=== PATIENT | male | born 1990 | race Caucasian/White ===

== ENCOUNTER 2021-03-21 15:18 | Inpatient (IN) | payer MEDICAID ==
[2021-03-21] MEDS ORDERED: Sodium Chloride 0.9% 10 ML Syringe FLUSH PRN (15:39)
--- NOTE | 2021-03-21 16:08 | CR ---
Chest: Frontal view of the chest was obtained. Comparison: No prior chest imaging is available. Patchy areas of increased density are seen throughout both sides of the chest compatible with diffuse COVID pneumonia. Heart size and mediastinum are normal. No acute osseous abnormality is appreciated. Impression: 1. Patchy areas of increased density throughout both sides of the chest compatible with diffuse COVID pneumonia. Diagnostic code #3
--- NOTE | 2021-03-21 16:16 | EDM.PDOC ---
ED HPI GENERAL MEDICAL PROBLEM - General Chief Complaint: Respiratory Problem Stated Complaint: COVID + Time Seen by Provider: 03/21/21 15:32 Source of Information: Reports: Patient, RN Notes Reviewed History Limitations: Reports: No Limitations - History of Present Illness INITIAL COMMENTS - FREE TEXT/NARRATIVE: Patient is a 31-year-old male who presents to the ER for evaluation of his COVID-19 symptoms. Patient was evaluated at the clinic earlier today, and was found to have low O2 saturations in the mid 80s. He was brought to the ER for evaluation and his O2 sats were 85% on room air. He was placed on 2 L nasal cannula and he then improved to 95%. Patient states he has been positive for COVID-19 since March 16. Patient states that he has been having ongoing issues with continuing shortness of breath with any sort of activity. Patient is obese, but denies any sort of blood pressure, diabetic, or any underlying respiratory issues. Patient takes no regular medication is and has no regular care provider. States he is not vaccinated for COVID-19. Throat Pain Score (Numeric/FACES): 4 - Related Data Allergies Allergy/AdvReac Type Severity Reaction Status Date / Time Penicillins Allergy Other Verified 03/21/21 15:37 Home Meds: Home Meds . [No Known Home Meds] 03/21/21 [History] Past Medical History - Past Health History Medical/Surgical History: Denies Medical/Surgical History - Infectious Disease History Infectious Disease History: Reports: Novel Coronavirus (03/16/21) Social & Family History - Family History Family Medical History: No Pertinent Family History - Tobacco Use Tobacco Use Status *Q: Current Every Day Tobacco User Years of Tobacco use: 15 Packs/Tins Daily: 0.5 - Caffeine Use Caffeine Use: Reports: Tea - Recreational Drug Use Recreational Drug Use: No ED ROS GENERAL - Review of Systems Review Of Systems: Comprehensive ROS is negative, except as noted in HPI. ED EXAM, GENERAL - Physical Exam Exam: See Below Exam Limited By: No Limitations General Appearance: Alert, WD/WN, No Apparent Distress Respiratory/Chest: No Respiratory Distress, No Accessory Muscle Use, Chest Non- Tender, Decreased Breath Sounds (diminished bilaterally) Cardiovascular: Normal Peripheral Pulses, Regular Rate, Rhythm, No Edema Peripheral Pulses: 2+: Radial (L), Radial (R) Extremities: Normal Inspection, Normal Capillary Refill Neurological: Alert, Oriented, Normal Cognition, No Motor/Sensory Deficits Psychiatric: Normal Affect, Normal Mood Skin Exam: Warm, Dry, Intact, Normal Color, No Rash Course - Vital Signs Last Recorded V/S: Last Vital Signs Temp 99.1 F 03/21/21 18:34 Pulse 114 H 03/21/21 18:34 Resp 20 03/21/21 18:34 BP 142/69 H 03/21/21 18:34 Pulse Ox 89 L 03/21/21 21:44 - Orders/Labs/Meds Orders: Active Orders 24 hr Category Date Time Status Admission Status [Patient Status] [ADT] Routine ADT 03/21/21 17:49 Active Sodium Chloride 0.9% [Saline Flush] Med 03/21/21 15:39 Active 10 ml FLUSH ASDIRECTED PRN Peripheral IV Insertion Adult [OM.PC] Routine Oth 03/21/21 15:38 Ordered Medication Orders Acetaminophen (Acetaminophen 325 Mg/10.15 Ml Ml) 650 mg PO Q4H PRN PRN Reason: Pain (mild 1-3) Albuterol (Albuterol 6.7 Gm Inhaler) 0 gm INH Q4H PRN PRN Reason: Shortness of Breath Last Admin: 03/21/21 21:43 Dose: 2 puff Documented by: YESENIA Albuterol/Ipratropium (Albuterol/Ipratropium 3.0-0.5 Mg/3 Ml Neb Soln) 3 ml NEB Q4H PRN PRN Reason: Shortness Of Breath/wheezing Dexamethasone (Dexamethasone 4 Mg Tab) 6 mg PO DAILY [facility] Stop: 03/31/21 09:01 Enoxaparin Sodium (Enoxaparin 40 Mg/0.4 Ml Syringe) 40 mg SUBCUT BID [facility] Last Admin: 03/21/21 20:52 Dose: 40 mg Documented by: RY Remdesivir 100 mg/ Sodium (Chloride) 100 mls @ 100 mls/hr IV Q24H [facility] Stop: 03/25/21 20:59 Ondansetron HCl (Ondansetron 4 Mg/2 Ml Sdv) 4 mg IV Q6H PRN PRN Reason: Nausea/Vomiting Sodium Chloride (Sodium Chloride 0.9% 10 Ml Syringe) 10 ml FLUSH ASDIRECTED PRN PRN Reason: Keep Vein Open Labs: Laboratory Tests 03/21/21 03/21/21 03/21/21 Range/Units 16:55 16:55 16:55 WBC 6.44 (4.23-9.07) K/mm3 RBC 5.60 (4.63-6.08) M/mm3 Hgb 16.0 (13.7-17.5) gm/dl Hct 48.2 (40.1-51.0) % MCV 86.1 (79.0-92.2) fl MCH 28.6 (25.7-32.2) pg MCHC 33.2 (32.2-35.5) g/dl RDW Std Deviation 40.0 (35.1-43.9) fL Plt Count 146 L (163-337) K/mm3 MPV 11.3 (9.4-12.3) fl Neut % (Auto) 84.4 H (34.0-67.9) % Lymph % (Auto) 7.3 L (21.8-53.1) % [place] % (Auto) 7.9 (5.3-12.2) % Eos % (Auto) 0 L (0.8-7.0) Baso % (Auto) 0.2 (0.1-1.2) % Neut # (Auto) 5.44 H (1.78-5.38) K/mm3 Lymph # (Auto) 0.47 L (1.32-3.57) K/mm3 [place] # (Auto) 0.51 (0.30-0.82) K/mm3 Eos # (Auto) 0.00 L (0.04-0.54) K/mm3 Baso # (Auto) 0.01 (0.01-0.08) K/mm3 D-Dimer, Quantitative (0.19-0.50) mg/L Sodium 133 L (136-145) mEq/L Potassium 3.5 (3.5-5.1) mEq/L Chloride 99 (98-107) mEq/L Carbon Dioxide 23 (21-32) mEq/L Anion Gap 14.5 (5-15) BUN 5 L (7-18) mg/dL Creatinine 1.1 (0.7-1.3) mg/dL Est Cr Clr Drug Dosing 95.00 mL/min Estimated GFR (MDRD) > 60 (>60) mL/min BUN/Creatinine Ratio 4.5 L (14-18) Glucose 229 H (70-99) mg/dL Hemoglobin A1c ( - 5.6) % Lactic Acid 2.1 H* (0.4-2.0) mmol/L Calcium 8.1 L (8.5-10.1) mg/dL Magnesium (1.8-2.4) mg/dL Total Bilirubin 0.6 (0.2-1.0) mg/dL AST 88 H (15-37) U/L ALT 91 H (16-63) U/L Alkaline Phosphatase 52 (46-116) U/L C-Reactive Protein 13.0 H* (<1.0) mg/dL Total Protein 7.0 (6.4-8.2) g/dl Albumin 2.8 L (3.4-5.0) g/dl Globulin 4.2 gm/dL Albumin/Globulin Ratio 0.7 L (1-2) 03/21/21 03/21/21 03/21/21 Range/Units 16:55 16:55 16:55 WBC (4.23-9.07) K/mm3 RBC (4.63-6.08) M/mm3 Hgb (13.7-17.5) gm/dl Hct (40.1-51.0) % MCV (79.0-92.2) fl MCH (25.7-32.2) pg MCHC (32.2-35.5) g/dl RDW Std Deviation (35.1-43.9) fL Plt Count (163-337) K/mm3 MPV (9.4-12.3) fl Neut % (Auto) (34.0-67.9) % Lymph % (Auto) (21.8-53.1) % [place] % (Auto) (5.3-12.2) % Eos % (Auto) (0.8-7.0) Baso % (Auto) (0.1-1.2) % Neut # (Auto) (1.78-5.38) K/mm3 Lymph # (Auto) (1.32-3.57) K/mm3 [place] # (Auto) (0.30-0.82) K/mm3 Eos # (Auto) (0.04-0.54) K/mm3 Baso # (Auto) (0.01-0.08) K/mm3 D-Dimer, Quantitative 0.71 H (0.19-0.50) mg/L Sodium (136-145) mEq/L Potassium (3.5-5.1) mEq/L Chloride (98-107) mEq/L Carbon Dioxide (21-32) mEq/L Anion Gap (5-15) BUN (7-18) mg/dL Creatinine (0.7-1.3) mg/dL Est Cr Clr Drug Dosing mL/min Estimated GFR (MDRD) (>60) mL/min BUN/Creatinine Ratio (14-18) Glucose (70-99) mg/dL Hemoglobin A1c 7.2 H ( - 5.6) % Lactic Acid (0.4-2.0) mmol/L Calcium (8.5-10.1) mg/dL Magnesium 2.1 (1.8-2.4) mg/dL Total Bilirubin (0.2-1.0) mg/dL AST (15-37) U/L ALT (16-63) U/L Alkaline Phosphatase (46-116) U/L C-Reactive Protein (<1.0) mg/dL Total Protein (6.4-8.2) g/dl Albumin (3.4-5.0) g/dl Globulin gm/dL Albumin/Globulin Ratio (1-2) Meds: Medications Generic Name Dose Route Start Last Admin Trade Name Freq PRN Reason Stop Dose Admin Acetaminophen 650 mg 03/21/21 23:19 Acetaminophen 325 Mg/10.15 Ml Ml PO Q4H PRN Pain (mild 1-3) Albuterol 0 gm 03/21/21 19:18 03/21/21 21:43 Albuterol 6.7 Gm Inhaler INH 2 puff Q4H PRN Administration Shortness of Breath Albuterol/Ipratropium 3 ml 03/21/21 19:08 Albuterol/Ipratropium 3.0-0.5 Mg/3 Ml Neb Soln NEB Q4H PRN Shortness Of Breath/wheezing Dexamethasone 6 mg 03/22/21 09:00 Dexamethasone 4 Mg Tab PO 03/31/21 09:01 DAILY PREET Enoxaparin Sodium 40 mg 03/21/21 21:00 03/21/21 20:52 Enoxaparin 40 Mg/0.4 Ml Syringe SUBCUT 40 mg BID PREET Administration Remdesivir 100 mg/ Sodium 100 mls @ 100 mls/hr 03/22/21 20:00 Chloride IV 03/25/21 20:59 Q24H PREET Ondansetron HCl 4 mg 03/21/21 19:08 Ondansetron 4 Mg/2 Ml Sdv IV Q6H PRN Nausea/Vomiting Sodium Chloride 10 ml 03/21/21 15:39 Sodium Chloride 0.9% 10 Ml Syringe FLUSH ASDIRECTED PRN Keep Vein Open Discontinued Medications Generic Name Dose Route Start Last Admin Trade Name Freq PRN Reason Stop Dose Admin Acetaminophen 650 mg 03/21/21 19:08 Acetaminophen 325 Mg Tab PO Q4H PRN Pain (Mild 1-3)/fever Acetaminophen 650 mg 03/21/21 19:15 Acetaminophen 325 Mg Tab PO Q4H PRN Fever Greater Than 101 Dexamethasone 6 mg 03/21/21 16:43 03/21/21 18:08 Dexamethasone 10 Mg/Ml Sdv IVPUSH 03/21/21 16:44 6 mg ONETIME ONE Administration Remdesivir 200 mg/ Sodium 250 mls @ 250 mls/hr 03/21/21 16:43 03/21/21 18:08 Chloride IV 03/21/21 16:44 250 mls/hr ONETIME ONE Administration Ibuprofen 600 mg 03/21/21 19:08 Ibuprofen 600 Mg Tab PO Q6H PRN Pain (moderate 4-6) Temazepam 7.5 mg 03/21/21 19:15 Temazepam 7.5 Mg Cap PO BEDTIME PRN Sleep - Re-Assessments/Exams Free Text/Narrative Re-Assessment/Exam: 03/21/21 16:15 Patient presents to the ER for evaluation of his COVID-19 symptoms. Due to the patient's hypoxia, he will likely necessitate hospitalization. We will get some basic labs, and then discussed this case with our hospitalist Dr. Piedra for ongoing management. Departure - Departure Time of Disposition: 18:00 Disposition: Admitted As Inpatient 67 Condition: Good Clinical Impression: Hypoxia, COVID-19 - Discharge Information Sepsis Event Note (ED) - Evaluation Sepsis Screening Result: No Definite Risk - Focused Exam Vital Signs: Vital Signs Temp Pulse Resp BP Pulse Ox 03/21/21 15:31 98.5 F 104 H 20 161/86 H 92 L - My Orders Last 24 Hours: My Active Orders 03/21/21 15:38 Peripheral IV Insertion Adult [OM.PC] Routine 03/21/21 15:39 Sodium Chloride 0.9% [Saline Flush] 10 ml FLUSH ASDIRECTED PRN 03/21/21 17:49 Admission Status [Patient Status] [ADT] Routine - Assessment/Plan Last 24 Hours: My Active Orders 03/21/21 15:38 Peripheral IV Insertion Adult [OM.PC] Routine 03/21/21 15:39 Sodium Chloride 0.9% [Saline Flush] 10 ml FLUSH ASDIRECTED PRN 03/21/21 17:49 Admission Status [Patient Status] [ADT] Routine
[2021-03-21] MEDS ORDERED: REMDESIVIR 200 MG in Sodium Chloride 0.9% 250 ML IV ONE (16:43)
[2021-03-21] MEDS ORDERED: Dexamethasone 10 MG/ML SDV IVPUSH ONE (16:43)
[2021-03-21] MEDS ORDERED: Acetaminophen 325 MG Tab PO PRN ×2 (19:08→19:15)
[2021-03-21] MEDS ORDERED: Ondansetron 4 MG/2 ML SDV IV PRN (19:08)
[2021-03-21] MEDS ORDERED: Ibuprofen 600 MG Tab PO PRN (19:08)
[2021-03-21] MEDS ORDERED: Temazepam 7.5 MG Cap PO PRN (19:15)
--- NOTE | 2021-03-21 19:26 | PCM.HP.2 ---
H&P History of Present Illness - General Date of Service: 03/21/21 Admit Problem/Dx: Admission Diagnosis/Problem Admission Diagnosis/Problem Hypoxia - History of Present Illness Initial Comments - Free Text/Narative: 31-year-old unvaccinated for Covid obese male presents to the emergency department with symptoms of cough, shortness of breath, fatigue, body aches, and chills for the last week. Symptoms started on March 15 and he was diagnosed with Covid on the . Apparently he had an ear infection and complained of left ear pain at that time. He did get antibiotics that he has been taking but he does not remember the name nor did he bring them with him. He came to the emergency department today because he could not do anything for himself and was extremely fatigued. In the emergency department his O2 sats were 85% on room air. He was placed on 2 L and oxygen saturations increased to the mid 90s. He was given his first dose of remdesivir and dexamethasone. He has no medical history. Initial blood pressure was elevated 161/86. He also complained of some diarrhea since developing Covid. Throat Pain Score (Numeric/FACES): 4 - Related Data Allergies/Adverse Reactions: Allergies Allergy/AdvReac Type Severity Reaction Status Date / Time Penicillins Allergy Other Verified 03/21/21 15:37 Home Medications: Home Meds . 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 Endocrine/Metabolic History: Reports: Other (See Below) Other Endocrine/Metabolic History: Hypoglycemic - Infectious Disease History Infectious Disease History: Reports: Chicken Pox, Novel Coronavirus Social & Family History - Family History Family Medical History: No Pertinent Family History - Tobacco Use Tobacco Use Status *Q: Current Every Day Tobacco User Years of Tobacco use: 3 Packs/Tins Daily: 1 Used Tobacco, but Quit: No Second Hand Smoke Exposure: No - Caffeine Use Caffeine Use: Reports: Tea - Recreational Drug Use Recreational Drug Use: No H&P Review of Systems - Review of Systems: Review Of Systems: Comprehensive ROS is negative, except as noted in HPI. Exam - Exam Exam: See Below - Vital Signs Vital Signs: Last Vital Signs Temp 99.1 F 03/21/21 18:34 Pulse 114 H 03/21/21 18:34 Resp 20 03/21/21 18:34 BP 142/69 H 03/21/21 18:34 Pulse Ox 89 L 03/21/21 18:34 Weight: 267 lb 6.4 oz - Exam Quality Assessment: Supplemental Oxygen General: Alert, Oriented, 4 HEENT: Conjunctiva Clear, EACs Clear, EOMI, Hearing Intact, Mucosa Moist & [place]: Supple, Trachea Midline, 2 Lungs: Decreased Breath Sounds, Crackles (Throughout both lung damon), Rales. No: Normal Respiratory Effort Cardiovascular: Regular Rate, Regular Rhythm GI/Abdominal Exam: Normal Bowel Sounds, Soft, Non-Tender, No Distention Extremities: Normal Inspection, Normal Range of Motion, Non-Tender, No Pedal Edema, Normal Capillary Refill Skin: Warm, Dry, Intact Neuro Extensive - Mental Status: Alert, Oriented x3, Normal Mood/Affect, Normal Cognition, Memory Intact Psychiatric: Alert, Normal Affect, Normal Mood - Patient Data Lab Results Last 24 hrs: Laboratory Results - last 24 hr 03/21/21 03/21/21 03/21/21 Range/Units 16:55 16:55 16:55 WBC 6.44 (4.23-9.07) K/mm3 RBC 5.60 (4.63-6.08) M/mm3 Hgb 16.0 (13.7-17.5) gm/dl Hct 48.2 (40.1-51.0) % MCV 86.1 (79.0-92.2) fl MCH 28.6 (25.7-32.2) pg MCHC 33.2 (32.2-35.5) g/dl RDW Std Deviation 40.0 (35.1-43.9) fL Plt Count 146 L (163-337) K/mm3 MPV 11.3 (9.4-12.3) fl Neut % (Auto) 84.4 H (34.0-67.9) % Lymph % (Auto) 7.3 L (21.8-53.1) % [place] % (Auto) 7.9 (5.3-12.2) % Eos % (Auto) 0 L (0.8-7.0) Baso % (Auto) 0.2 (0.1-1.2) % Neut # (Auto) 5.44 H (1.78-5.38) K/mm3 Lymph # (Auto) 0.47 L (1.32-3.57) K/mm3 [place] # (Auto) 0.51 (0.30-0.82) K/mm3 Eos # (Auto) 0.00 L (0.04-0.54) K/mm3 Baso # (Auto) 0.01 (0.01-0.08) K/mm3 D-Dimer, Quantitative (0.19-0.50) mg/L Sodium 133 L (136-145) mEq/L Potassium 3.5 (3.5-5.1) mEq/L Chloride 99 (98-107) mEq/L Carbon Dioxide 23 (21-32) mEq/L Anion Gap 14.5 (5-15) BUN 5 L (7-18) mg/dL Creatinine 1.1 (0.7-1.3) mg/dL Est Cr Clr Drug Dosing 95.00 mL/min Estimated GFR (MDRD) > 60 (>60) mL/min BUN/Creatinine Ratio 4.5 L (14-18) Glucose 229 H (70-99) mg/dL Lactic Acid 2.1 H* (0.4-2.0) mmol/L Calcium 8.1 L (8.5-10.1) mg/dL Magnesium (1.8-2.4) mg/dL Total Bilirubin 0.6 (0.2-1.0) mg/dL AST 88 H (15-37) U/L ALT 91 H (16-63) U/L Alkaline Phosphatase 52 (46-116) U/L C-Reactive Protein 13.0 H* (<1.0) mg/dL Total Protein 7.0 (6.4-8.2) g/dl Albumin 2.8 L (3.4-5.0) g/dl Globulin 4.2 gm/dL Albumin/Globulin Ratio 0.7 L (1-2) 03/21/21 03/21/21 Range/Units 16:55 16:55 WBC (4.23-9.07) K/mm3 RBC (4.63-6.08) M/mm3 Hgb (13.7-17.5) gm/dl Hct (40.1-51.0) % MCV (79.0-92.2) fl MCH (25.7-32.2) pg MCHC (32.2-35.5) g/dl RDW Std Deviation (35.1-43.9) fL Plt Count (163-337) K/mm3 MPV (9.4-12.3) fl Neut % (Auto) (34.0-67.9) % Lymph % (Auto) (21.8-53.1) % [place] % (Auto) (5.3-12.2) % Eos % (Auto) (0.8-7.0) Baso % (Auto) (0.1-1.2) % Neut # (Auto) (1.78-5.38) K/mm3 Lymph # (Auto) (1.32-3.57) K/mm3 [place] # (Auto) (0.30-0.82) K/mm3 Eos # (Auto) (0.04-0.54) K/mm3 Baso # (Auto) (0.01-0.08) K/mm3 D-Dimer, Quantitative 0.71 H (0.19-0.50) mg/L Sodium (136-145) mEq/L Potassium (3.5-5.1) mEq/L Chloride (98-107) mEq/L Carbon Dioxide (21-32) mEq/L Anion Gap (5-15) BUN (7-18) mg/dL Creatinine (0.7-1.3) mg/dL Est Cr Clr Drug Dosing mL/min Estimated GFR (MDRD) (>60) mL/min BUN/Creatinine Ratio (14-18) Glucose (70-99) mg/dL Lactic Acid (0.4-2.0) mmol/L Calcium (8.5-10.1) mg/dL Magnesium 2.1 (1.8-2.4) mg/dL Total Bilirubin (0.2-1.0) mg/dL AST (15-37) U/L ALT (16-63) U/L Alkaline Phosphatase (46-116) U/L C-Reactive Protein (<1.0) mg/dL Total Protein (6.4-8.2) g/dl Albumin (3.4-5.0) g/dl Globulin gm/dL Albumin/Globulin Ratio (1-2) Result Diagrams: 03/21/21 16:55 03/21/21 16:55 Sepsis Event Note - Evaluation Sepsis Screening Result: No Definite Risk - Focused Exam Vital Signs: Vital Signs Temp Temp Pulse Pulse Resp BP BP 03/21/21 18:34 99.1 F 114 H 20 142/69 H 03/21/21 15:31 98.5 F 104 H 20 161/86 H Pulse Ox 03/21/21 18:34 89 L 03/21/21 15:31 92 L - Problem List (1) Pneumonia due to COVID-19 virus SNOMED Code(s): 473816371262770959 ICD Code: U07.1 - COVID-19; J12.82 - PNEUMONIA DUE TO CORONAVIRUS DISEASE 2018 Status: Acute Current Visit: Yes (2) Obesity SNOMED Code(s): 254307022, 164219171 ICD Code: E66.9 - OBESITY, UNSPECIFIED Status: Acute Current Visit: Yes (3) Elevated BP without diagnosis of hypertension SNOMED Code(s): 150715090 ICD Code: R03.0 - ELEVATED BLOOD-PRESSURE READING, W/O DIAGNOSIS OF HTN Status: Acute Current Visit: Yes Problem List Initiated/Reviewed/Updated: Yes Orders Last 24hrs: Active Orders 24 hr Category Date Time Status Admission Status [Patient Status] [ADT] Routine ADT 03/21/21 17:49 Active Nurse Communication: Isolation [RC] ASDIRECTED Care 03/21/21 19:08 Ordered Oxygen Therapy [RC] PRN Care 03/21/21 19:08 Ordered Peripheral IV Care [RC] . DIRECTED Care 03/21/21 15:39 Active Positioning, Patient [RC] ASDIRECTED Care 03/21/21 19:16 Ordered RT Aerosol Therapy [RC] ASDIRECTED Care 03/21/21 19:18 Ordered RT Incentive Spirometry [RC] ASDIRECTED Care 03/21/21 19:15 Ordered RT Post Treatment Assessment [RC] Click to Edit Care 03/21/21 19:18 Ordered RT Pre-Treatment Assessment [RC] Click to Edit Care 03/21/21 19:18 Ordered Up ad Stacia [RC] ASDIRECTED Care 03/21/21 19:08 Ordered VTE/DVT Education [RC] PER UNIT ROUTINE Care 03/21/21 19:08 Ordered Vital Signs [RC] Q4H Care 03/21/21 19:08 Ordered Regular Diet [DIET] Diet 03/21/21 Dinner Ordered C-REACTIVE PROTEIN [CHEM] AM Lab 03/22/21 05:11 Ordered C-REACTIVE PROTEIN [CHEM] AM Lab 03/23/21 05:11 Ordered C-REACTIVE PROTEIN [CHEM] AM Lab 03/24/21 05:11 Ordered C-REACTIVE PROTEIN [CHEM] AM Lab 03/25/21 05:11 Ordered C-REACTIVE PROTEIN [CHEM] AM Lab 03/26/21 05:11 Ordered CBC WITH AUTO DIFF [HEME] AM Lab 03/22/21 05:11 Ordered CBC WITH AUTO DIFF [HEME] AM Lab 03/23/21 05:11 Ordered CBC WITH AUTO DIFF [HEME] AM Lab 03/24/21 05:11 Ordered CBC WITH AUTO DIFF [HEME] AM Lab 03/25/21 05:11 Ordered CBC WITH AUTO DIFF [HEME] AM Lab 03/26/21 05:11 Ordered CMP [COMPREHENSIVE METABOLIC PN,CMP] [CHEM] AM Lab 03/22/21 05:11 Ordered CMP [COMPREHENSIVE METABOLIC PN,CMP] [CHEM] AM Lab 03/23/21 05:11 Ordered CMP [COMPREHENSIVE METABOLIC PN,CMP] [CHEM] AM Lab 03/24/21 05:11 Ordered CMP [COMPREHENSIVE METABOLIC PN,CMP] [CHEM] AM Lab 03/25/21 05:11 Ordered CMP [COMPREHENSIVE METABOLIC PN,CMP] [CHEM] AM Lab 03/26/21 05:11 Ordered DD [D-DIMER QUANTITATIVE] [COAG] AM Lab 03/22/21 05:11 Ordered DD [D-DIMER QUANTITATIVE] [COAG] AM Lab 03/23/21 05:11 Ordered DD [D-DIMER QUANTITATIVE] [COAG] AM Lab 03/24/21 05:11 Ordered DD [D-DIMER QUANTITATIVE] [COAG] AM Lab 03/25/21 05:11 Ordered DD [D-DIMER QUANTITATIVE] [COAG] AM Lab 03/26/21 05:11 Ordered MAGNESIUM [CHEM] AM Lab 03/22/21 05:11 Ordered MAGNESIUM [CHEM] AM Lab 03/23/21 05:11 Ordered MAGNESIUM [CHEM] AM Lab 03/24/21 05:11 Ordered MAGNESIUM [CHEM] AM Lab 03/25/21 05:11 Ordered MAGNESIUM [CHEM] AM Lab 03/26/21 05:11 Ordered PHOSPHORUS [CHEM] AM Lab 03/22/21 05:11 Ordered PHOSPHORUS [CHEM] AM Lab 03/23/21 05:11 Ordered PHOSPHORUS [CHEM] AM Lab 03/24/21 05:11 Ordered PHOSPHORUS [CHEM] AM Lab 03/25/21 05:11 Ordered PHOSPHORUS [CHEM] AM Lab 03/26/21 05:11 Ordered Acetaminophen [TylenoL] Med 03/21/21 19:08 Ordered 650 mg PO Q4H PRN Acetaminophen [TylenoL] Med 03/21/21 19:15 Ordered 650 mg PO Q4H PRN Albuterol [Proventil HFA] Med 03/21/21 19:18 Ordered See Dose Instructions INH Q4H PRN Albuterol/Ipratropium [DuoNeb 3.0-0.5 MG/3 ML] Med 03/21/21 19:08 Ordered 3 ml NEB Q4H PRN Enoxaparin [Lovenox] Med 03/21/21 21:00 Ordered 40 mg SUBCUT BID Ibuprofen [Motrin] Med 03/21/21 19:08 Ordered 600 mg PO Q6H PRN Ondansetron [Zofran] Med 03/21/21 19:08 Ordered 4 mg IV Q6H PRN Remdesivir 100 mg Med 03/22/21 19:15 Ordered Sodium Chloride 0.9% [Normal Saline] 100 ml IV Q24H Sodium Chloride 0.9% [Saline Flush] Med 03/21/21 15:39 Active 10 ml FLUSH ASDIRECTED PRN Temazepam [Restoril] Med 03/21/21 19:15 Ordered 7.5 mg PO BEDTIME PRN dexAMETHasone Med 03/22/21 09:00 Ordered 6 mg PO DAILY Isolation [COMM] Stat Oth 03/21/21 19:08 Ordered Peripheral IV Insertion Adult [OM.PC] Routine Oth 03/21/21 15:38 Ordered RT Acapella [RESPCARE] Routine Oth 03/21/21 19:15 Ordered Resuscitation Status Routine Resus Stat 03/21/21 19:08 Ordered Medication Orders Acetaminophen (Acetaminophen 325 Mg Tab) 650 mg PO Q4H PRN PRN Reason: Pain (Mild 1-3)/fever Enoxaparin Sodium (Enoxaparin 40 Mg/0.4 Ml Syringe) 40 mg SUBCUT BID PREET Ibuprofen (Ibuprofen 600 Mg Tab) 600 mg PO Q6H PRN PRN Reason: Pain (moderate 4-6) Ondansetron HCl (Ondansetron 4 Mg/2 Ml Sdv) 4 mg IV Q6H PRN PRN Reason: Nausea/Vomiting Sodium Chloride (Sodium Chloride 0.9% 10 Ml Syringe) 10 ml FLUSH ASDIRECTED PRN PRN Reason: Keep Vein Open Assessment/Plan Comment:: 31-year-old obese male not vaccinated against COVID-19 admitted with Covid pneumonia. COVID-19 pneumonia with hypoxemia * Requiring 2 to 3 L nasal cannula * Symptoms for started on March 15 * Received remdesivir and dexamethasone in the emergency department * No history of smoking. * White count 6.44, hemoglobin 16.5, platelet count 146, D-dimer 0.71, sodium 133, lactic acid 2.1, CRP 13.0, Transaminitis * AST 88, ALT 91 * Normal total bilirubin * albumin 2.8 * Likely multifactorial including fatty liver, possible diabetes, and COVID-19 * Will need to follow Hyperglycemia * glucose 229 * Patient denies diabetes * Will need further work-up Elevated blood pressure without diagnosis of hypertension * Systolic blood pressure 160 on presentation to the emergency department * No history of hypertension Plan * Admit to medical floor * FiO2 to keep SPO2 between 88 and 94% * RT consult, Acapella, incentive spirometry, albuterol MDI as needed, DuoNeb every 4 hours as needed * Continue remdesivir and dexamethasone * Hemoglobin A1c and fasting glucose in the morning * Follow blood pressure * Follow CBC, CMP, magnesium, phosphorus, CRP, D-dimer * VTE prophylaxis with Lovenox * CODE STATUS: Full code - Mortality Measure Prognosis:: Good
[2021-03-21 19:56] LABS: HEMOGLOBIN A1C 7.2 %
[2021-03-21] MEDS: Enoxaparin 40 MG/0.4 ML Syringe SUBCUT SCH (20:52)
[2021-03-21] MEDS: Albuterol 6.7 GM Inhaler INH PRN (21:43)
[2021-03-21] MEDS ORDERED: Acetaminophen 325 MG/10.15 ML ML PO PRN ×2 (23:19→23:22)
[2021-03-21] MEDS ORDERED: Ibuprofen Susp 100 MG/5 ML 5 ML UD Cup PO PRN (23:23)
[2021-03-22] MEDS: Albuterol 6.7 GM Inhaler INH PRN (04:01)
[2021-03-22] MEDS: Albuterol/Ipratropium 3.0-0.5 MG/3 ML Neb Soln NEB PRN ×4 (06:18→20:56)
[2021-03-22] MEDS: Enoxaparin 40 MG/0.4 ML Syringe SUBCUT SCH ×2 (08:39→20:31)
[2021-03-22] MEDS: Dexamethasone 4 MG/ML SDV IVPUSH SCH (08:40)
[2021-03-22] MEDS ORDERED: Dexamethasone 4 MG Tab PO SCH (09:00)
--- NOTE | 2021-03-22 11:24 | PCM.PN ---
- General Info Date of Service: 03/22/21 Admission Dx/Problem (Free Text): Admission Diagnosis/Problem Admission Diagnosis/Problem Hypoxia Subjective Update: 31-year-old morbidly obese male with COVID-19. Patient has made some progress over the last 24 hours and is currently on only 2 L nasal cannula. Patient continues to have a poor appetite but is trying to eat. Functional Status: Reports: Pain Controlled - Review of Systems General: Reports: Fatigue HEENT: Reports: No Symptoms Pulmonary: Reports: Shortness of Breath, Cough Cardiovascular: Reports: No Symptoms Gastrointestinal: Reports: Decreased Appetite Musculoskeletal: Reports: No Symptoms - Patient Data Vitals - Most Recent: Last Vital Signs Temp 98.6 F 03/22/21 08:06 Pulse 100 03/22/21 08:06 Resp 16 03/22/21 08:06 BP 124/67 03/22/21 08:06 Pulse Ox 89 L 03/22/21 08:06 Weight - Most Recent: 264 lb 14.4 oz I&O - Last 24 Hours: Intake & Output 03/21/21 03/22/21 03/22/21 22:59 06:59 14:59 Intake Total 1470 Output Total 450 Balance 1020 Lab Results Last 24 Hours: Laboratory Results - last 24 hr 03/21/21 03/21/21 03/21/21 Range/Units 16:55 16:55 16:55 WBC 6.44 (4.23-9.07) K/mm3 RBC 5.60 (4.63-6.08) M/mm3 Hgb 16.0 (13.7-17.5) gm/dl Hct 48.2 (40.1-51.0) % MCV 86.1 (79.0-92.2) fl MCH 28.6 (25.7-32.2) pg MCHC 33.2 (32.2-35.5) g/dl RDW Std Deviation 40.0 (35.1-43.9) fL Plt Count 146 L (163-337) K/mm3 MPV 11.3 (9.4-12.3) fl Neut % (Auto) 84.4 H (34.0-67.9) % Lymph % (Auto) 7.3 L (21.8-53.1) % [place] % (Auto) 7.9 (5.3-12.2) % Eos % (Auto) 0 L (0.8-7.0) Baso % (Auto) 0.2 (0.1-1.2) % Neut # (Auto) 5.44 H (1.78-5.38) K/mm3 Lymph # (Auto) 0.47 L (1.32-3.57) K/mm3 [place] # (Auto) 0.51 (0.30-0.82) K/mm3 Eos # (Auto) 0.00 L (0.04-0.54) K/mm3 Baso # (Auto) 0.01 (0.01-0.08) K/mm3 D-Dimer, Quantitative (0.19-0.50) mg/L Sodium 133 L (136-145) mEq/L Potassium 3.5 (3.5-5.1) mEq/L Chloride 99 (98-107) mEq/L Carbon Dioxide 23 (21-32) mEq/L Anion Gap 14.5 (5-15) BUN 5 L (7-18) mg/dL Creatinine 1.1 (0.7-1.3) mg/dL Est Cr Clr Drug Dosing 95.00 mL/min Estimated GFR (MDRD) > 60 (>60) mL/min BUN/Creatinine Ratio 4.5 L (14-18) Glucose 229 H (70-99) mg/dL Hemoglobin A1c ( - 5.6) % Lactic Acid 2.1 H* (0.4-2.0) mmol/L Calcium 8.1 L (8.5-10.1) mg/dL Phosphorus (2.6-4.7) mg/dL Magnesium (1.8-2.4) mg/dL Total Bilirubin 0.6 (0.2-1.0) mg/dL AST 88 H (15-37) U/L ALT 91 H (16-63) U/L Alkaline Phosphatase 52 (46-116) U/L C-Reactive Protein 13.0 H* (<1.0) mg/dL Total Protein 7.0 (6.4-8.2) g/dl Albumin 2.8 L (3.4-5.0) g/dl Globulin 4.2 gm/dL Albumin/Globulin Ratio 0.7 L (1-2) 03/21/21 03/21/21 03/21/21 Range/Units 16:55 16:55 16:55 WBC (4.23-9.07) K/mm3 RBC (4.63-6.08) M/mm3 Hgb (13.7-17.5) gm/dl Hct (40.1-51.0) % MCV (79.0-92.2) fl MCH (25.7-32.2) pg MCHC (32.2-35.5) g/dl RDW Std Deviation (35.1-43.9) fL Plt Count (163-337) K/mm3 MPV (9.4-12.3) fl Neut % (Auto) (34.0-67.9) % Lymph % (Auto) (21.8-53.1) % [place] % (Auto) (5.3-12.2) % Eos % (Auto) (0.8-7.0) Baso % (Auto) (0.1-1.2) % Neut # (Auto) (1.78-5.38) K/mm3 Lymph # (Auto) (1.32-3.57) K/mm3 [place] # (Auto) (0.30-0.82) K/mm3 Eos # (Auto) (0.04-0.54) K/mm3 Baso # (Auto) (0.01-0.08) K/mm3 D-Dimer, Quantitative 0.71 H (0.19-0.50) mg/L Sodium (136-145) mEq/L Potassium (3.5-5.1) mEq/L Chloride (98-107) mEq/L Carbon Dioxide (21-32) mEq/L Anion Gap (5-15) BUN (7-18) mg/dL Creatinine (0.7-1.3) mg/dL Est Cr Clr Drug Dosing mL/min Estimated GFR (MDRD) (>60) mL/min BUN/Creatinine Ratio (14-18) Glucose (70-99) mg/dL Hemoglobin A1c 7.2 H ( - 5.6) % Lactic Acid (0.4-2.0) mmol/L Calcium (8.5-10.1) mg/dL Phosphorus (2.6-4.7) mg/dL Magnesium 2.1 (1.8-2.4) mg/dL Total Bilirubin (0.2-1.0) mg/dL AST (15-37) U/L ALT (16-63) U/L Alkaline Phosphatase (46-116) U/L C-Reactive Protein (<1.0) mg/dL Total Protein (6.4-8.2) g/dl Albumin (3.4-5.0) g/dl Globulin gm/dL Albumin/Globulin Ratio (1-2) 03/22/21 03/22/21 03/22/21 Range/Units 05:37 05:37 05:37 WBC 4.07 L (4.23-9.07) K/mm3 RBC 5.22 (4.63-6.08) M/mm3 Hgb 15.1 (13.7-17.5) gm/dl Hct 45.5 (40.1-51.0) % MCV 87.2 (79.0-92.2) fl MCH 28.9 (25.7-32.2) pg MCHC 33.2 (32.2-35.5) g/dl RDW Std Deviation 40.4 (35.1-43.9) fL Plt Count 162 L (163-337) K/mm3 MPV 11.0 (9.4-12.3) fl Neut % (Auto) 78.9 H (34.0-67.9) % Lymph % (Auto) 9.1 L (21.8-53.1) % [place] % (Auto) 11.8 (5.3-12.2) % Eos % (Auto) 0 L (0.8-7.0) Baso % (Auto) 0.0 L (0.1-1.2) % Neut # (Auto) 3.21 (1.78-5.38) K/mm3 Lymph # (Auto) 0.37 L (1.32-3.57) K/mm3 [place] # (Auto) 0.48 (0.30-0.82) K/mm3 Eos # (Auto) 0.00 L (0.04-0.54) K/mm3 Baso # (Auto) 0.00 L (0.01-0.08) K/mm3 D-Dimer, Quantitative 0.60 H (0.19-0.50) mg/L Sodium 136 (136-145) mEq/L Potassium 4.4 (3.5-5.1) mEq/L Chloride 100 (98-107) mEq/L Carbon Dioxide 25 (21-32) mEq/L Anion Gap 15.4 H (5-15) BUN 9 (7-18) mg/dL Creatinine 1.0 (0.7-1.3) mg/dL Est Cr Clr Drug Dosing 108.01 mL/min Estimated GFR (MDRD) > 60 (>60) mL/min BUN/Creatinine Ratio 9.0 L (14-18) Glucose 243 H (70-99) mg/dL Hemoglobin A1c ( - 5.6) % Lactic Acid (0.4-2.0) mmol/L Calcium 8.2 L (8.5-10.1) mg/dL Phosphorus 2.8 (2.6-4.7) mg/dL Magnesium 2.0 (1.8-2.4) mg/dL Total Bilirubin 0.6 (0.2-1.0) mg/dL AST 60 H (15-37) U/L ALT 81 H (16-63) U/L Alkaline Phosphatase 50 (46-116) U/L C-Reactive Protein 15.1 H* (<1.0) mg/dL Total Protein 6.7 (6.4-8.2) g/dl Albumin 2.5 L (3.4-5.0) g/dl Globulin 4.2 gm/dL Albumin/Globulin Ratio 0.6 L (1-2) 03/22/21 Range/Units 05:37 WBC (4.23-9.07) K/mm3 RBC (4.63-6.08) M/mm3 Hgb (13.7-17.5) gm/dl Hct (40.1-51.0) % MCV (79.0-92.2) fl MCH (25.7-32.2) pg MCHC (32.2-35.5) g/dl RDW Std Deviation (35.1-43.9) fL Plt Count (163-337) K/mm3 MPV (9.4-12.3) fl Neut % (Auto) (34.0-67.9) % Lymph % (Auto) (21.8-53.1) % [place] % (Auto) (5.3-12.2) % Eos % (Auto) (0.8-7.0) Baso % (Auto) (0.1-1.2) % Neut # (Auto) (1.78-5.38) K/mm3 Lymph # (Auto) (1.32-3.57) K/mm3 [place] # (Auto) (0.30-0.82) K/mm3 Eos # (Auto) (0.04-0.54) K/mm3 Baso # (Auto) (0.01-0.08) K/mm3 D-Dimer, Quantitative (0.19-0.50) mg/L Sodium (136-145) mEq/L Potassium (3.5-5.1) mEq/L Chloride (98-107) mEq/L Carbon Dioxide (21-32) mEq/L Anion Gap (5-15) BUN (7-18) mg/dL Creatinine (0.7-1.3) mg/dL Est Cr Clr Drug Dosing mL/min Estimated GFR (MDRD) (>60) mL/min BUN/Creatinine Ratio (14-18) Glucose (70-99) mg/dL Hemoglobin A1c ( - 5.6) % Lactic Acid 1.4 (0.4-2.0) mmol/L Calcium (8.5-10.1) mg/dL Phosphorus (2.6-4.7) mg/dL Magnesium (1.8-2.4) mg/dL Total Bilirubin (0.2-1.0) mg/dL AST (15-37) U/L ALT (16-63) U/L Alkaline Phosphatase (46-116) U/L C-Reactive Protein (<1.0) mg/dL Total Protein (6.4-8.2) g/dl Albumin (3.4-5.0) g/dl Globulin gm/dL Albumin/Globulin Ratio (1-2) Med Orders - Current: Current Medications Acetaminophen (Acetaminophen 325 Mg/10.15 Ml Ml) 650 mg PO Q4H PRN PRN Reason: Pain (mild 1-3) or fever > 101 Albuterol (Albuterol 6.7 Gm Inhaler) 0 gm INH Q4H PRN PRN Reason: Shortness of Breath Last Admin: 03/22/21 04:01 Dose: 2 puff Documented by: Albuterol/Ipratropium (Albuterol/Ipratropium 3.0-0.5 Mg/3 Ml Neb Soln) 3 ml NEB Q4H PRN PRN Reason: Shortness Of Breath/wheezing Last Admin: 03/22/21 06:18 Dose: 3 ml Documented by: Dexamethasone (Dexamethasone 4 Mg/Ml Sdv) 6 mg IVPUSH DAILY [facility] Stop: 03/30/21 09:01 Last Admin: 03/22/21 08:40 Dose: 6 mg Documented by: Enoxaparin Sodium (Enoxaparin 40 Mg/0.4 Ml Syringe) 40 mg SUBCUT BID [facility] Last Admin: 03/22/21 08:39 Dose: 40 mg Documented by: Remdesivir 100 mg/ Sodium (Chloride) 100 mls @ 100 mls/hr IV Q24H [facility] Stop: 03/25/21 20:59 Ibuprofen (Ibuprofen Susp 100 Mg/5 Ml 5 Ml Ud Cup) 600 mg PO Q6H PRN PRN Reason: Pain (moderate 4-6) Ondansetron HCl (Ondansetron 4 Mg/2 Ml Sdv) 4 mg IV Q6H PRN PRN Reason: Nausea/Vomiting Sodium Chloride (Sodium Chloride 0.9% 10 Ml Syringe) 10 ml FLUSH ASDIRECTED PRN PRN Reason: Keep Vein Open Discontinued Medications Acetaminophen (Acetaminophen 325 Mg Tab) 650 mg PO Q4H PRN PRN Reason: Pain (Mild 1-3)/fever Acetaminophen (Acetaminophen 325 Mg Tab) 650 mg PO Q4H PRN PRN Reason: Fever Greater Than 101 Acetaminophen (Acetaminophen 325 Mg/10.15 Ml Ml) 650 mg PO Q4H PRN PRN Reason: Fever Dexamethasone (Dexamethasone 10 Mg/Ml Sdv) 6 mg IVPUSH ONETIME ONE Stop: 03/21/21 16:44 Last Admin: 03/21/21 18:08 Dose: 6 mg Documented by: Dexamethasone (Dexamethasone 4 Mg Tab) 6 mg PO DAILY [facility] Stop: 03/31/21 09:01 Remdesivir 200 mg/ Sodium (Chloride) 250 mls @ 250 mls/hr IV ONETIME ONE Stop: 03/21/21 16:44 Last Admin: 03/21/21 18:08 Dose: 250 mls/hr Documented by: Ibuprofen (Ibuprofen 600 Mg Tab) 600 mg PO Q6H PRN PRN Reason: Pain (moderate 4-6) Temazepam (Temazepam 7.5 Mg Cap) 7.5 mg PO BEDTIME PRN PRN Reason: Sleep - Exam Quality Assessment: Supplemental Oxygen General: Alert, Oriented HEENT: Pupils Equal, Mucous Membr. Moist/[place] Neck: Supple Lungs: Decreased Breath Sounds (Due to body habitus), Crackles (Bibasilar). No: Normal Respiratory Effort (Increased rate and effort) Cardiovascular: Regular Rate, Regular Rhythm GI/Abdominal Exam: Normal Bowel Sounds, Soft, Non-Tender, No Distention Extremities: Normal Inspection, Normal Range of Motion, Non-Tender, No Pedal Edema Skin: Warm, Dry, Intact - Patient Data Lab Results Last 24 hrs: Laboratory Results - last 24 hr 03/21/21 03/21/21 03/21/21 Range/Units 16:55 16:55 16:55 WBC 6.44 (4.23-9.07) K/mm3 RBC 5.60 (4.63-6.08) M/mm3 Hgb 16.0 (13.7-17.5) gm/dl Hct 48.2 (40.1-51.0) % MCV 86.1 (79.0-92.2) fl MCH 28.6 (25.7-32.2) pg MCHC 33.2 (32.2-35.5) g/dl RDW Std Deviation 40.0 (35.1-43.9) fL Plt Count 146 L (163-337) K/mm3 MPV 11.3 (9.4-12.3) fl Neut % (Auto) 84.4 H (34.0-67.9) % Lymph % (Auto) 7.3 L (21.8-53.1) % [place] % (Auto) 7.9 (5.3-12.2) % Eos % (Auto) 0 L (0.8-7.0) Baso % (Auto) 0.2 (0.1-1.2) % Neut # (Auto) 5.44 H (1.78-5.38) K/mm3 Lymph # (Auto) 0.47 L (1.32-3.57) K/mm3 [place] # (Auto) 0.51 (0.30-0.82) K/mm3 Eos # (Auto) 0.00 L (0.04-0.54) K/mm3 Baso # (Auto) 0.01 (0.01-0.08) K/mm3 D-Dimer, Quantitative (0.19-0.50) mg/L Sodium 133 L (136-145) mEq/L Potassium 3.5 (3.5-5.1) mEq/L Chloride 99 (98-107) mEq/L Carbon Dioxide 23 (21-32) mEq/L Anion Gap 14.5 (5-15) BUN 5 L (7-18) mg/dL Creatinine 1.1 (0.7-1.3) mg/dL Est Cr Clr Drug Dosing 95.00 mL/min Estimated GFR (MDRD) > 60 (>60) mL/min BUN/Creatinine Ratio 4.5 L (14-18) Glucose 229 H (70-99) mg/dL Hemoglobin A1c ( - 5.6) % Lactic Acid 2.1 H* (0.4-2.0) mmol/L Calcium 8.1 L (8.5-10.1) mg/dL Phosphorus (2.6-4.7) mg/dL Magnesium (1.8-2.4) mg/dL Total Bilirubin 0.6 (0.2-1.0) mg/dL AST 88 H (15-37) U/L ALT 91 H (16-63) U/L Alkaline Phosphatase 52 (46-116) U/L C-Reactive Protein 13.0 H* (<1.0) mg/dL Total Protein 7.0 (6.4-8.2) g/dl Albumin 2.8 L (3.4-5.0) g/dl Globulin 4.2 gm/dL Albumin/Globulin Ratio 0.7 L (1-2) 03/21/21 03/21/21 03/21/21 Range/Units 16:55 16:55 16:55 WBC (4.23-9.07) K/mm3 RBC (4.63-6.08) M/mm3 Hgb (13.7-17.5) gm/dl Hct (40.1-51.0) % MCV (79.0-92.2) fl MCH (25.7-32.2) pg MCHC (32.2-35.5) g/dl RDW Std Deviation (35.1-43.9) fL Plt Count (163-337) K/mm3 MPV (9.4-12.3) fl Neut % (Auto) (34.0-67.9) % Lymph % (Auto) (21.8-53.1) % [place] % (Auto) (5.3-12.2) % Eos % (Auto) (0.8-7.0) Baso % (Auto) (0.1-1.2) % Neut # (Auto) (1.78-5.38) K/mm3 Lymph # (Auto) (1.32-3.57) K/mm3 [place] # (Auto) (0.30-0.82) K/mm3 Eos # (Auto) (0.04-0.54) K/mm3 Baso # (Auto) (0.01-0.08) K/mm3 D-Dimer, Quantitative 0.71 H (0.19-0.50) mg/L Sodium (136-145) mEq/L Potassium (3.5-5.1) mEq/L Chloride (98-107) mEq/L Carbon Dioxide (21-32) mEq/L Anion Gap (5-15) BUN (7-18) mg/dL Creatinine (0.7-1.3) mg/dL Est Cr Clr Drug Dosing mL/min Estimated GFR (MDRD) (>60) mL/min BUN/Creatinine Ratio (14-18) Glucose (70-99) mg/dL Hemoglobin A1c 7.2 H ( - 5.6) % Lactic Acid (0.4-2.0) mmol/L Calcium (8.5-10.1) mg/dL Phosphorus (2.6-4.7) mg/dL Magnesium 2.1 (1.8-2.4) mg/dL Total Bilirubin (0.2-1.0) mg/dL AST (15-37) U/L ALT (16-63) U/L Alkaline Phosphatase (46-116) U/L C-Reactive Protein (<1.0) mg/dL Total Protein (6.4-8.2) g/dl Albumin (3.4-5.0) g/dl Globulin gm/dL Albumin/Globulin Ratio (1-2) 03/22/21 03/22/21 03/22/21 Range/Units 05:37 05:37 05:37 WBC 4.07 L (4.23-9.07) K/mm3 RBC 5.22 (4.63-6.08) M/mm3 Hgb 15.1 (13.7-17.5) gm/dl Hct 45.5 (40.1-51.0) % MCV 87.2 (79.0-92.2) fl MCH 28.9 (25.7-32.2) pg MCHC 33.2 (32.2-35.5) g/dl RDW Std Deviation 40.4 (35.1-43.9) fL Plt Count 162 L (163-337) K/mm3 MPV 11.0 (9.4-12.3) fl Neut % (Auto) 78.9 H (34.0-67.9) % Lymph % (Auto) 9.1 L (21.8-53.1) % [place] % (Auto) 11.8 (5.3-12.2) % Eos % (Auto) 0 L (0.8-7.0) Baso % (Auto) 0.0 L (0.1-1.2) % Neut # (Auto) 3.21 (1.78-5.38) K/mm3 Lymph # (Auto) 0.37 L (1.32-3.57) K/mm3 [place] # (Auto) 0.48 (0.30-0.82) K/mm3 Eos # (Auto) 0.00 L (0.04-0.54) K/mm3 Baso # (Auto) 0.00 L (0.01-0.08) K/mm3 D-Dimer, Quantitative 0.60 H (0.19-0.50) mg/L Sodium 136 (136-145) mEq/L Potassium 4.4 (3.5-5.1) mEq/L Chloride 100 (98-107) mEq/L Carbon Dioxide 25 (21-32) mEq/L Anion Gap 15.4 H (5-15) BUN 9 (7-18) mg/dL Creatinine 1.0 (0.7-1.3) mg/dL Est Cr Clr Drug Dosing 108.01 mL/min Estimated GFR (MDRD) > 60 (>60) mL/min BUN/Creatinine Ratio 9.0 L (14-18) Glucose 243 H (70-99) mg/dL Hemoglobin A1c ( - 5.6) % Lactic Acid (0.4-2.0) mmol/L Calcium 8.2 L (8.5-10.1) mg/dL Phosphorus 2.8 (2.6-4.7) mg/dL Magnesium 2.0 (1.8-2.4) mg/dL Total Bilirubin 0.6 (0.2-1.0) mg/dL AST 60 H (15-37) U/L ALT 81 H (16-63) U/L Alkaline Phosphatase 50 (46-116) U/L C-Reactive Protein 15.1 H* (<1.0) mg/dL Total Protein 6.7 (6.4-8.2) g/dl Albumin 2.5 L (3.4-5.0) g/dl Globulin 4.2 gm/dL Albumin/Globulin Ratio 0.6 L (1-2) 03/22/21 Range/Units 05:37 WBC (4.23-9.07) K/mm3 RBC (4.63-6.08) M/mm3 Hgb (13.7-17.5) gm/dl Hct (40.1-51.0) % MCV (79.0-92.2) fl MCH (25.7-32.2) pg MCHC (32.2-35.5) g/dl RDW Std Deviation (35.1-43.9) fL Plt Count (163-337) K/mm3 MPV (9.4-12.3) fl Neut % (Auto) (34.0-67.9) % Lymph % (Auto) (21.8-53.1) % [place] % (Auto) (5.3-12.2) % Eos % (Auto) (0.8-7.0) Baso % (Auto) (0.1-1.2) % Neut # (Auto) (1.78-5.38) K/mm3 Lymph # (Auto) (1.32-3.57) K/mm3 [place] # (Auto) (0.30-0.82) K/mm3 Eos # (Auto) (0.04-0.54) K/mm3 Baso # (Auto) (0.01-0.08) K/mm3 D-Dimer, Quantitative (0.19-0.50) mg/L Sodium (136-145) mEq/L Potassium (3.5-5.1) mEq/L Chloride (98-107) mEq/L Carbon Dioxide (21-32) mEq/L Anion Gap (5-15) BUN (7-18) mg/dL Creatinine (0.7-1.3) mg/dL Est Cr Clr Drug Dosing mL/min Estimated GFR (MDRD) (>60) mL/min BUN/Creatinine Ratio (14-18) Glucose (70-99) mg/dL Hemoglobin A1c ( - 5.6) % Lactic Acid 1.4 (0.4-2.0) mmol/L Calcium (8.5-10.1) mg/dL Phosphorus (2.6-4.7) mg/dL Magnesium (1.8-2.4) mg/dL Total Bilirubin (0.2-1.0) mg/dL AST (15-37) U/L ALT (16-63) U/L Alkaline Phosphatase (46-116) U/L C-Reactive Protein (<1.0) mg/dL Total Protein (6.4-8.2) g/dl Albumin (3.4-5.0) g/dl Globulin gm/dL Albumin/Globulin Ratio (1-2) Result Diagrams: 03/22/21 05:37 03/22/21 05:37 Sepsis Event Note - Evaluation Sepsis Screening Result: No Definite Risk - Focused Exam Vital Signs: Vital Signs Temp Pulse Resp BP Pulse Ox Pulse Ox 03/22/21 08:06 98.6 F 100 16 124/67 89 L 03/22/21 06:18 94 L 03/22/21 05:30 18 114/83 03/22/21 04:10 88 L 03/22/21 04:01 87 L 03/22/21 03:38 98.4 F 95 91 L 03/22/21 01:51 99.0 F 88 20 96 - Problem List & Annotations (1) Pneumonia due to COVID-19 virus SNOMED Code(s): 008383620471963232 Code(s): U07.1 - COVID-19; J12.82 - PNEUMONIA DUE TO CORONAVIRUS DISEASE 2019 Status: Acute Current Visit: Yes (2) Obesity SNOMED Code(s): 426984472, 286130260 Code(s): E66.9 - OBESITY, UNSPECIFIED Status: Acute Current Visit: Yes (3) Elevated BP without diagnosis of hypertension SNOMED Code(s): 589972737 Code(s): R03.0 - ELEVATED BLOOD-PRESSURE READING, W/O DIAGNOSIS OF HTN Status: Acute Current Visit: Yes - Problem List Review Problem List Initiated/Reviewed/Updated: Yes - My Orders Last 24 Hours: My Active Orders 03/21/21 Dinner Regular Diet [DIET] 03/21/21 19:08 Oxygen Therapy [RC] PRN Up ad Stacia [RC] BID VTE/DVT Education [RC] DAILY Vital Signs [RC] Q4HR Albuterol/Ipratropium [DuoNeb 3.0-0.5 MG/3 ML] 3 ml NEB Q4H PRN Ondansetron [Zofran] 4 mg IV Q6H PRN Isolation [COMM] Stat Resuscitation Status Routine 03/21/21 19:15 RT Incentive Spirometry [RC] ASDIRECTED 03/21/21 19:16 Positioning, Patient [RC] BID 03/21/21 19:18 RT Aerosol Therapy [RC] ASDIRECTED Albuterol [Proventil HFA] See Dose Instructions INH Q4H PRN 03/21/21 21:00 Enoxaparin [Lovenox] 40 mg SUBCUT BID 03/21/21 23:19 Acetaminophen [Tylenol] 650 mg PO Q4H PRN 03/21/21 23:23 Ibuprofen [Motrin 100 MG/5 ML Susp] 600 mg PO Q6H PRN 03/22/21 09:00 dexAMETHasone [Decadron] 6 mg IVPUSH DAILY 03/22/21 20:00 Remdesivir 100 mg Sodium Chloride 0.9% [Normal Saline] 100 ml IV Q24H 03/23/21 05:11 C-REACTIVE PROTEIN [CHEM] AM CBC WITH AUTO DIFF [HEME] AM CMP [COMPREHENSIVE METABOLIC PN,CMP] [CHEM] AM DD [D-DIMER QUANTITATIVE] [COAG] AM MAGNESIUM [CHEM] AM PHOSPHORUS [CHEM] AM 03/24/21 05:11 C-REACTIVE PROTEIN [CHEM] AM CBC WITH AUTO DIFF [HEME] AM CMP [COMPREHENSIVE METABOLIC PN,CMP] [CHEM] AM DD [D-DIMER QUANTITATIVE] [COAG] AM MAGNESIUM [CHEM] AM PHOSPHORUS [CHEM] AM 03/25/21 05:11 C-REACTIVE PROTEIN [CHEM] AM CBC WITH AUTO DIFF [HEME] AM CMP [COMPREHENSIVE METABOLIC PN,CMP] [CHEM] AM DD [D-DIMER QUANTITATIVE] [COAG] AM MAGNESIUM [CHEM] AM PHOSPHORUS [CHEM] AM 03/26/21 05:11 C-REACTIVE PROTEIN [CHEM] AM CBC WITH AUTO DIFF [HEME] AM CMP [COMPREHENSIVE METABOLIC PN,CMP] [CHEM] AM DD [D-DIMER QUANTITATIVE] [COAG] AM MAGNESIUM [CHEM] AM PHOSPHORUS [CHEM] AM - Plan Plan:: 31-year-old obese male not vaccinated against COVID-19 admitted with Covid pneumonia. COVID-19 pneumonia with hypoxemia * Requiring 3 liters per minute nasal cannula * Symptoms for started on March 15 * Received remdesivir and dexamethasone in the emergency department * Continuing on remdesivir and dexamethasone on the floor * No history of smoking. * Labs stable. CRP decreased to 8.0 Transaminitisimproving * AST 60, ALT 81 * Normal total bilirubin * albumin 2.5 * Likely multifactorial including fatty liver, possible diabetes, and COVID-19 * Will need to follow Hyperglycemia * glucose in the low 200s * Patient denies diabetes * Hemoglobin A1c is 7.2 making it likely he has diabetes. * Will need further work-up Elevated blood pressure without diagnosis of hypertension * Systolic blood pressure 160 on presentation to the emergency department * Blood pressure is good on floor * No history of hypertension Plan * Admit to medical floor * FiO2 to keep SPO2 between 88 and 94% * RT consult, Acapella, incentive spirometry, albuterol MDI as needed, DuoNeb every 4 hours as needed * Continue remdesivir and dexamethasone * Start sliding scale insulin. He will likely need diabetic education. * Follow blood pressure * Follow CBC, CMP, magnesium, phosphorus, CRP, D-dimer * VTE prophylaxis with Lovenox * CODE STATUS: Full code
[2021-03-22] MEDS: Insulin Lispro 100 UNIT/ML 10 ML Vial SUBCUT SCH ×2 (17:48→22:06)
[2021-03-22] MEDS: REMDESIVIR 100 MG in Sodium Chloride 0.9% 100 ML IV SCH (20:29)
[2021-03-23] MEDS: Insulin Lispro 100 UNIT/ML 10 ML Vial SUBCUT SCH ×4 (08:52→21:01)
[2021-03-23] MEDS: Enoxaparin 40 MG/0.4 ML Syringe SUBCUT SCH ×2 (08:53→20:46)
[2021-03-23] MEDS: Dexamethasone 4 MG/ML SDV IVPUSH SCH (08:54)
[2021-03-23] MEDS: Albuterol 6.7 GM Inhaler INH PRN (11:12)
--- NOTE | 2021-03-23 13:07 | PCM.PN ---
- General Info Date of Service: 03/23/21 Admission Dx/Problem (Free Text): Admission Diagnosis/Problem Admission Diagnosis/Problem Hypoxia Subjective Update: 31-year-old morbidly obese male with COVID-19. Hemoglobin A1c was 7.2 and his random blood sugars have been as high as 300. I discussed with him his new diagnosis of diabetes today. Functional Status: Reports: Pain Controlled - Review of Systems General: Reports: No Symptoms HEENT: Reports: No Symptoms Pulmonary: Reports: No Symptoms Cardiovascular: Reports: No Symptoms Gastrointestinal: Reports: No Symptoms Musculoskeletal: Reports: No Symptoms Neurological: Reports: No Symptoms Psychiatric: Reports: No Symptoms - Patient Data Vitals - Most Recent: Last Vital Signs Temp 98.1 F 03/23/21 08:40 Pulse 75 03/23/21 08:40 Resp 24 H 03/23/21 08:40 BP 120/58 L 03/23/21 08:40 Pulse Ox 90 L 03/23/21 11:13 Weight - Most Recent: 262 lb 12.8 oz I&O - Last 24 Hours: Intake & Output 03/22/21 03/23/21 03/23/21 22:59 06:59 14:59 Intake Total 1360 1250 Output Total 1400 900 Balance -40 350 Lab Results Last 24 Hours: Laboratory Results - last 24 hr 03/22/21 03/22/21 03/23/21 Range/Units 17:04 21:36 06:45 WBC 5.63 (4.23-9.07) K/mm3 RBC 5.15 (4.63-6.08) M/mm3 Hgb 14.9 (13.7-17.5) gm/dl Hct 45.3 (40.1-51.0) % MCV 88.0 (79.0-92.2) fl MCH 28.9 (25.7-32.2) pg MCHC 32.9 (32.2-35.5) g/dl RDW Std Deviation 41.1 (35.1-43.9) fL Plt Count 224 (163-337) K/mm3 MPV 11.0 (9.4-12.3) fl Neut % (Auto) 71.1 H (34.0-67.9) % Lymph % (Auto) 9.8 L (21.8-53.1) % [place] % (Auto) 18.5 H (5.3-12.2) % Eos % (Auto) 0 L (0.8-7.0) Baso % (Auto) 0.2 (0.1-1.2) % Neut # (Auto) 4.01 (1.78-5.38) K/mm3 Lymph # (Auto) 0.55 L (1.32-3.57) K/mm3 [place] # (Auto) 1.04 H (0.30-0.82) K/mm3 Eos # (Auto) 0.00 L (0.04-0.54) K/mm3 Baso # (Auto) 0.01 (0.01-0.08) K/mm3 D-Dimer, Quantitative (0.19-0.50) mg/L Sodium (136-145) mEq/L Potassium (3.5-5.1) mEq/L Chloride (98-107) mEq/L Carbon Dioxide (21-32) mEq/L Anion Gap (5-15) BUN (7-18) mg/dL Creatinine (0.7-1.3) mg/dL Est Cr Clr Drug Dosing mL/min Estimated GFR (MDRD) (>60) mL/min BUN/Creatinine Ratio (14-18) Glucose (70-99) mg/dL POC Glucose 287 H 300 H (70-99) mg/dL Calcium (8.5-10.1) mg/dL Phosphorus (2.6-4.7) mg/dL Magnesium (1.8-2.4) mg/dL Total Bilirubin (0.2-1.0) mg/dL AST (15-37) U/L ALT (16-63) U/L Alkaline Phosphatase (46-116) U/L C-Reactive Protein (<1.0) mg/dL Total Protein (6.4-8.2) g/dl Albumin (3.4-5.0) g/dl Globulin gm/dL Albumin/Globulin Ratio (1-2) 03/23/21 03/23/21 03/23/21 Range/Units 06:45 06:45 06:48 WBC (4.23-9.07) K/mm3 RBC (4.63-6.08) M/mm3 Hgb (13.7-17.5) gm/dl Hct (40.1-51.0) % MCV (79.0-92.2) fl MCH (25.7-32.2) pg MCHC (32.2-35.5) g/dl RDW Std Deviation (35.1-43.9) fL Plt Count (163-337) K/mm3 MPV (9.4-12.3) fl Neut % (Auto) (34.0-67.9) % Lymph % (Auto) (21.8-53.1) % [place] % (Auto) (5.3-12.2) % Eos % (Auto) (0.8-7.0) Baso % (Auto) (0.1-1.2) % Neut # (Auto) (1.78-5.38) K/mm3 Lymph # (Auto) (1.32-3.57) K/mm3 [place] # (Auto) (0.30-0.82) K/mm3 Eos # (Auto) (0.04-0.54) K/mm3 Baso # (Auto) (0.01-0.08) K/mm3 D-Dimer, Quantitative 0.61 H (0.19-0.50) mg/L Sodium 138 (136-145) mEq/L Potassium 4.0 (3.5-5.1) mEq/L Chloride 102 (98-107) mEq/L Carbon Dioxide 27 (21-32) mEq/L Anion Gap 13.0 (5-15) BUN 16 (7-18) mg/dL Creatinine 1.0 (0.7-1.3) mg/dL Est Cr Clr Drug Dosing 108.01 mL/min Estimated GFR (MDRD) > 60 (>60) mL/min BUN/Creatinine Ratio 16.0 (14-18) Glucose 264 H (70-99) mg/dL POC Glucose 207 H (70-99) mg/dL Calcium 8.5 (8.5-10.1) mg/dL Phosphorus 4.1 (2.6-4.7) mg/dL Magnesium 2.2 (1.8-2.4) mg/dL Total Bilirubin 0.6 (0.2-1.0) mg/dL AST 51 H (15-37) U/L ALT 83 H (16-63) U/L Alkaline Phosphatase 47 (46-116) U/L C-Reactive Protein 7.3 H* (<1.0) mg/dL Total Protein 6.5 (6.4-8.2) g/dl Albumin 2.4 L (3.4-5.0) g/dl Globulin 4.1 gm/dL Albumin/Globulin Ratio 0.6 L (1-2) 03/23/21 Range/Units 11:45 WBC (4.23-9.07) K/mm3 RBC (4.63-6.08) M/mm3 Hgb (13.7-17.5) gm/dl Hct (40.1-51.0) % MCV (79.0-92.2) fl MCH (25.7-32.2) pg MCHC (32.2-35.5) g/dl RDW Std Deviation (35.1-43.9) fL Plt Count (163-337) K/mm3 MPV (9.4-12.3) fl Neut % (Auto) (34.0-67.9) % Lymph % (Auto) (21.8-53.1) % [place] % (Auto) (5.3-12.2) % Eos % (Auto) (0.8-7.0) Baso % (Auto) (0.1-1.2) % Neut # (Auto) (1.78-5.38) K/mm3 Lymph # (Auto) (1.32-3.57) K/mm3 [place] # (Auto) (0.30-0.82) K/mm3 Eos # (Auto) (0.04-0.54) K/mm3 Baso # (Auto) (0.01-0.08) K/mm3 D-Dimer, Quantitative (0.19-0.50) mg/L Sodium (136-145) mEq/L Potassium (3.5-5.1) mEq/L Chloride (98-107) mEq/L Carbon Dioxide (21-32) mEq/L Anion Gap (5-15) BUN (7-18) mg/dL Creatinine (0.7-1.3) mg/dL Est Cr Clr Drug Dosing mL/min Estimated GFR (MDRD) (>60) mL/min BUN/Creatinine Ratio (14-18) Glucose (70-99) mg/dL POC Glucose 324 H (70-99) mg/dL Calcium (8.5-10.1) mg/dL Phosphorus (2.6-4.7) mg/dL Magnesium (1.8-2.4) mg/dL Total Bilirubin (0.2-1.0) mg/dL AST (15-37) U/L ALT (16-63) U/L Alkaline Phosphatase (46-116) U/L C-Reactive Protein (<1.0) mg/dL Total Protein (6.4-8.2) g/dl Albumin (3.4-5.0) g/dl Globulin gm/dL Albumin/Globulin Ratio (1-2) Med Orders - Current: Current Medications Acetaminophen (Acetaminophen 325 Mg/10.15 Ml Ml) 650 mg PO Q4H PRN PRN Reason: Pain (mild 1-3) or fever > 101 Albuterol (Albuterol 6.7 Gm Inhaler) 0 gm INH Q4H PRN PRN Reason: Shortness of Breath Last Admin: 03/23/21 11:12 Dose: 2 puff Documented by: Albuterol/Ipratropium (Albuterol/Ipratropium 3.0-0.5 Mg/3 Ml Neb Soln) 3 ml NEB Q4H PRN PRN Reason: Shortness Of Breath/wheezing Last Admin: 03/22/21 20:56 Dose: 3 ml Documented by: Dexamethasone (Dexamethasone 4 Mg/Ml Sdv) 6 mg IVPUSH DAILY [facility] Stop: 03/30/21 09:01 Last Admin: 03/23/21 08:54 Dose: 6 mg Documented by: Enoxaparin Sodium (Enoxaparin 40 Mg/0.4 Ml Syringe) 40 mg SUBCUT BID [facility] Last Admin: 03/23/21 08:53 Dose: 40 mg Documented by: Remdesivir 100 mg/ Sodium (Chloride) 100 mls @ 100 mls/hr IV Q24H [facility] Stop: 03/25/21 20:59 Last Admin: 03/22/21 20:29 Dose: 100 mls/hr Documented by: Ibuprofen (Ibuprofen Susp 100 Mg/5 Ml 5 Ml Ud Cup) 600 mg PO Q6H PRN PRN Reason: Pain (moderate 4-6) Insulin Glargine (Insulin Glarg,Human.Rec.Analog 100 Unit/Ml) 10 unit SUBCUT BIDAC [facility] Insulin Human Lispro (Insulin Lispro 100 Unit/Ml 10 Ml Vial) 0 unit SUBCUT QIDACANDBED [facility]; Protocol Last Admin: 03/23/21 12:23 Dose: 8 units Documented by: Ondansetron HCl (Ondansetron 4 Mg/2 Ml Sdv) 4 mg IV Q6H PRN PRN Reason: Nausea/Vomiting Sodium Chloride (Sodium Chloride 0.9% 10 Ml Syringe) 10 ml FLUSH ASDIRECTED PRN PRN Reason: Keep Vein Open Discontinued Medications Acetaminophen (Acetaminophen 325 Mg Tab) 650 mg PO Q4H PRN PRN Reason: Pain (Mild 1-3)/fever Acetaminophen (Acetaminophen 325 Mg Tab) 650 mg PO Q4H PRN PRN Reason: Fever Greater Than 101 Acetaminophen (Acetaminophen 325 Mg/10.15 Ml Ml) 650 mg PO Q4H PRN PRN Reason: Fever Dexamethasone (Dexamethasone 10 Mg/Ml Sdv) 6 mg IVPUSH ONETIME ONE Stop: 03/21/21 16:44 Last Admin: 03/21/21 18:08 Dose: 6 mg Documented by: Dexamethasone (Dexamethasone 4 Mg Tab) 6 mg PO DAILY [facility] Stop: 03/31/21 09:01 Remdesivir 200 mg/ Sodium (Chloride) 250 mls @ 250 mls/hr IV ONETIME ONE Stop: 03/21/21 16:44 Last Admin: 03/21/21 18:08 Dose: 250 mls/hr Documented by: Ibuprofen (Ibuprofen 600 Mg Tab) 600 mg PO Q6H PRN PRN Reason: Pain (moderate 4-6) Temazepam (Temazepam 7.5 Mg Cap) 7.5 mg PO BEDTIME PRN PRN Reason: Sleep - Exam Quality Assessment: Supplemental Oxygen General: Alert, Oriented Neck: Supple Lungs: Normal Respiratory Effort, Decreased Breath Sounds, Crackles Cardiovascular: Regular Rate, Regular Rhythm GI/Abdominal Exam: Normal Bowel Sounds, Soft, Non-Tender, No Distention (Obese) Extremities: Normal Inspection, Normal Capillary Refill Skin: Warm, Dry, Intact Psy/Mental Status: Alert, Normal Affect, Normal Mood - Patient Data Lab Results Last 24 hrs: Laboratory Results - last 24 hr 03/22/21 03/22/21 03/23/21 Range/Units 17:04 21:36 06:45 WBC 5.63 (4.23-9.07) K/mm3 RBC 5.15 (4.63-6.08) M/mm3 Hgb 14.9 (13.7-17.5) gm/dl Hct 45.3 (40.1-51.0) % MCV 88.0 (79.0-92.2) fl MCH 28.9 (25.7-32.2) pg MCHC 32.9 (32.2-35.5) g/dl RDW Std Deviation 41.1 (35.1-43.9) fL Plt Count 224 (163-337) K/mm3 MPV 11.0 (9.4-12.3) fl Neut % (Auto) 71.1 H (34.0-67.9) % Lymph % (Auto) 9.8 L (21.8-53.1) % [place] % (Auto) 18.5 H (5.3-12.2) % Eos % (Auto) 0 L (0.8-7.0) Baso % (Auto) 0.2 (0.1-1.2) % Neut # (Auto) 4.01 (1.78-5.38) K/mm3 Lymph # (Auto) 0.55 L (1.32-3.57) K/mm3 [place] # (Auto) 1.04 H (0.30-0.82) K/mm3 Eos # (Auto) 0.00 L (0.04-0.54) K/mm3 Baso # (Auto) 0.01 (0.01-0.08) K/mm3 D-Dimer, Quantitative (0.19-0.50) mg/L Sodium (136-145) mEq/L Potassium (3.5-5.1) mEq/L Chloride (98-107) mEq/L Carbon Dioxide (21-32) mEq/L Anion Gap (5-15) BUN (7-18) mg/dL Creatinine (0.7-1.3) mg/dL Est Cr Clr Drug Dosing mL/min Estimated GFR (MDRD) (>60) mL/min BUN/Creatinine Ratio (14-18) Glucose (70-99) mg/dL POC Glucose 287 H 300 H (70-99) mg/dL Calcium (8.5-10.1) mg/dL Phosphorus (2.6-4.7) mg/dL Magnesium (1.8-2.4) mg/dL Total Bilirubin (0.2-1.0) mg/dL AST (15-37) U/L ALT (16-63) U/L Alkaline Phosphatase (46-116) U/L C-Reactive Protein (<1.0) mg/dL Total Protein (6.4-8.2) g/dl Albumin (3.4-5.0) g/dl Globulin gm/dL Albumin/Globulin Ratio (1-2) 03/23/21 03/23/21 03/23/21 Range/Units 06:45 06:45 06:48 WBC (4.23-9.07) K/mm3 RBC (4.63-6.08) M/mm3 Hgb (13.7-17.5) gm/dl Hct (40.1-51.0) % MCV (79.0-92.2) fl MCH (25.7-32.2) pg MCHC (32.2-35.5) g/dl RDW Std Deviation (35.1-43.9) fL Plt Count (163-337) K/mm3 MPV (9.4-12.3) fl Neut % (Auto) (34.0-67.9) % Lymph % (Auto) (21.8-53.1) % [place] % (Auto) (5.3-12.2) % Eos % (Auto) (0.8-7.0) Baso % (Auto) (0.1-1.2) % Neut # (Auto) (1.78-5.38) K/mm3 Lymph # (Auto) (1.32-3.57) K/mm3 [place] # (Auto) (0.30-0.82) K/mm3 Eos # (Auto) (0.04-0.54) K/mm3 Baso # (Auto) (0.01-0.08) K/mm3 D-Dimer, Quantitative 0.61 H (0.19-0.50) mg/L Sodium 138 (136-145) mEq/L Potassium 4.0 (3.5-5.1) mEq/L Chloride 102 (98-107) mEq/L Carbon Dioxide 27 (21-32) mEq/L Anion Gap 13.0 (5-15) BUN 16 (7-18) mg/dL Creatinine 1.0 (0.7-1.3) mg/dL Est Cr Clr Drug Dosing 108.01 mL/min Estimated GFR (MDRD) > 60 (>60) mL/min BUN/Creatinine Ratio 16.0 (14-18) Glucose 264 H (70-99) mg/dL POC Glucose 207 H (70-99) mg/dL Calcium 8.5 (8.5-10.1) mg/dL Phosphorus 4.1 (2.6-4.7) mg/dL Magnesium 2.2 (1.8-2.4) mg/dL Total Bilirubin 0.6 (0.2-1.0) mg/dL AST 51 H (15-37) U/L ALT 83 H (16-63) U/L Alkaline Phosphatase 47 (46-116) U/L C-Reactive Protein 7.3 H* (<1.0) mg/dL Total Protein 6.5 (6.4-8.2) g/dl Albumin 2.4 L (3.4-5.0) g/dl Globulin 4.1 gm/dL Albumin/Globulin Ratio 0.6 L (1-2) 03/23/21 Range/Units 11:45 WBC (4.23-9.07) K/mm3 RBC (4.63-6.08) M/mm3 Hgb (13.7-17.5) gm/dl Hct (40.1-51.0) % MCV (79.0-92.2) fl MCH (25.7-32.2) pg MCHC (32.2-35.5) g/dl RDW Std Deviation (35.1-43.9) fL Plt Count (163-337) K/mm3 MPV (9.4-12.3) fl Neut % (Auto) (34.0-67.9) % Lymph % (Auto) (21.8-53.1) % [place] % (Auto) (5.3-12.2) % Eos % (Auto) (0.8-7.0) Baso % (Auto) (0.1-1.2) % Neut # (Auto) (1.78-5.38) K/mm3 Lymph # (Auto) (1.32-3.57) K/mm3 [place] # (Auto) (0.30-0.82) K/mm3 Eos # (Auto) (0.04-0.54) K/mm3 Baso # (Auto) (0.01-0.08) K/mm3 D-Dimer, Quantitative (0.19-0.50) mg/L Sodium (136-145) mEq/L Potassium (3.5-5.1) mEq/L Chloride (98-107) mEq/L Carbon Dioxide (21-32) mEq/L Anion Gap (5-15) BUN (7-18) mg/dL Creatinine (0.7-1.3) mg/dL Est Cr Clr Drug Dosing mL/min Estimated GFR (MDRD) (>60) mL/min BUN/Creatinine Ratio (14-18) Glucose (70-99) mg/dL POC Glucose 324 H (70-99) mg/dL Calcium (8.5-10.1) mg/dL Phosphorus (2.6-4.7) mg/dL Magnesium (1.8-2.4) mg/dL Total Bilirubin (0.2-1.0) mg/dL AST (15-37) U/L ALT (16-63) U/L Alkaline Phosphatase (46-116) U/L C-Reactive Protein (<1.0) mg/dL Total Protein (6.4-8.2) g/dl Albumin (3.4-5.0) g/dl Globulin gm/dL Albumin/Globulin Ratio (1-2) Result Diagrams: 03/23/21 06:45 03/23/21 06:45 Sepsis Event Note - Evaluation Sepsis Screening Result: No Definite Risk - Focused Exam Vital Signs: Vital Signs Temp Pulse Resp BP Pulse Ox Pulse Ox 03/23/21 11:13 90 L 03/23/21 08:40 98.1 F 75 24 H 120/58 L 93 L 03/23/21 03:00 98.1 F 93 20 109/67 91 L - Problem List & Annotations (1) Pneumonia due to COVID-19 virus SNOMED Code(s): 240800711110984573 Code(s): U07.1 - COVID-19; J12.82 - PNEUMONIA DUE TO CORONAVIRUS DISEASE 2019 Status: Acute Current Visit: Yes (2) Obesity SNOMED Code(s): 396858488, 854277273 Code(s): E66.9 - OBESITY, UNSPECIFIED Status: Acute Current Visit: Yes (3) Elevated BP without diagnosis of hypertension SNOMED Code(s): 499581481 Code(s): R03.0 - ELEVATED BLOOD-PRESSURE READING, W/O DIAGNOSIS OF HTN Status: Acute Current Visit: Yes - Problem List Review Problem List Initiated/Reviewed/Updated: Yes - My Orders Last 24 Hours: My Active Orders 03/22/21 16:44 Blood Glucose Check, Bedside [RC] QIDACANDBED 03/22/21 17:00 Insulin Lispro [HumaLOG] See Protocol SUBCUT QIDACANDBED 03/22/21 20:00 Remdesivir 100 mg Sodium Chloride 0.9% [Normal Saline] 100 ml IV Q24H 03/23/21 Lunch ADA Diabetic [[place] [employer] Diet] [DIET] 03/23/21 13:03 Consult to Retail Marketing Coordinator [CONS] Routine 03/23/21 13:04 Consult to Diabetic Nurse Specialist [CONS] Routine 03/23/21 16:00 Insulin Glarg,Human.Rec.Analog [LantUS] 10 unit SUBCUT BIDAC 03/24/21 05:11 C-REACTIVE PROTEIN [CHEM] AM CBC WITH AUTO DIFF [HEME] AM CMP [COMPREHENSIVE METABOLIC PN,CMP] [CHEM] AM DD [D-DIMER QUANTITATIVE] [COAG] AM MAGNESIUM [CHEM] AM PHOSPHORUS [CHEM] AM 03/25/21 05:11 C-REACTIVE PROTEIN [CHEM] AM CBC WITH AUTO DIFF [HEME] AM CMP [COMPREHENSIVE METABOLIC PN,CMP] [CHEM] AM DD [D-DIMER QUANTITATIVE] [COAG] AM MAGNESIUM [CHEM] AM PHOSPHORUS [CHEM] AM 03/26/21 05:11 C-REACTIVE PROTEIN [CHEM] AM CBC WITH AUTO DIFF [HEME] AM CMP [COMPREHENSIVE METABOLIC PN,CMP] [CHEM] AM DD [D-DIMER QUANTITATIVE] [COAG] AM MAGNESIUM [CHEM] AM PHOSPHORUS [CHEM] AM - Plan Plan:: 31-year-old obese male not vaccinated against COVID-19 admitted with Covid pneumonia. COVID-19 pneumonia with hypoxemia * Requiring 3 liters per minute nasal cannula * Symptoms for started on March 15 * Received remdesivir and dexamethasone in the emergency department * Continuing on remdesivir and dexamethasone on the floor * No history of smoking. * Labs stable. CRP decreased to 8.0 Transaminitisimproving * AST 60, ALT 81 * Normal total bilirubin * albumin 2.5 * Likely multifactorial including fatty liver, possible diabetes, and COVID-19 * Will need to follow New onset diabetes * glucose in the low 200s * Patient denies diabetes * Hemoglobin A1c is 7.2 making it likely he has diabetes. 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 Elevated blood pressure without diagnosis of hypertensionresolved * Systolic blood pressure 160 on presentation to the emergency department * Blood pressures normal * No history of hypertension Plan * Admit to medical floor * FiO2 to keep SPO2 between 88 and 94% * RT consult, Acapella, incentive spirometry, albuterol MDI as needed, DuoNeb every 4 hours as needed * Continue remdesivir and dexamethasone * Diabetic education and dietitian consulted * Start Lantus 10 units twice daily * Check urine for microalbumin creatinine ratio * Continue sliding scale insulin, but will need prandial insulin * Likely benefit from going home on Metformin, patient has a phobia to pills * Follow blood pressure * Follow CBC, CMP, magnesium, phosphorus, CRP, D-dimer * VTE prophylaxis with Lovenox * CODE STATUS: Full code
[2021-03-23] MEDS: Insulin Glarg,Human.Rec.Analog 100 Unit/ML SUBCUT SCH (18:09)
[2021-03-23] MEDS: REMDESIVIR 100 MG in Sodium Chloride 0.9% 100 ML IV SCH (20:46)
[2021-03-24] MEDS: Insulin Glarg,Human.Rec.Analog 100 Unit/ML SUBCUT SCH ×2 (06:02→17:30)
[2021-03-24] MEDS: Albuterol 6.7 GM Inhaler INH PRN ×2 (07:51→22:30)
[2021-03-24] MEDS: Enoxaparin 40 MG/0.4 ML Syringe SUBCUT SCH ×2 (08:10→21:17)
[2021-03-24] MEDS: Dexamethasone 4 MG/ML SDV IVPUSH SCH (08:10)
[2021-03-24] MEDS: Insulin Lispro 100 UNIT/ML 10 ML Vial SUBCUT SCH ×4 (08:10→21:53)
--- NOTE | 2021-03-24 08:24 | PCM.PN ---
<Mahendra Layton - Last Filed: 03/24/21 12:25> - General Info Date of Service: 03/24/21 Admission Dx/Problem (Free Text): Admission Diagnosis/Problem Admission Diagnosis/Problem Hypoxia Subjective Update: This is a 31-year-old male admitted to the floor with COVID-19 pneumonia. Once admitted he was noted to have high blood sugars and an elevated A1c and was subsequently diagnosed with new onset diabetes. Labs today show WBC of 7.38. Hemoglobin 14.8. D-dimer 0.29. Sodium 138. Potassium 4.0. BUN is 23. Creatinine 1.0. GFR greater than 60. Blood sugars have been 1 98-2 34. Phosphorus 4.5. Magnesium 2.1. Bilirubin is 0.6. Liver enzymes remain elevated with an AST of 47, ALT of 80, alkaline phosphatase of 45. CRP is 3.1. Albumin is 2.4. His been weaned down to 2 L. He continues to have a cough and report congestion. We will start him on Mucinex. Functional Status: Reports: Pain Controlled, Tolerating Diet, Ambulating, Urinating, Incentive Spirometry, Other (Acapella ). Denies: New Symptoms - Review of Systems General: Reports: No Symptoms, Fatigue. Denies: Fever, Malaise, Chills HEENT: Reports: No Symptoms. Denies: Headaches, Sore Throat Pulmonary: Reports: Shortness of Breath, Cough, Sputum. Denies: Wheezing Cardiovascular: Reports: No Symptoms. Denies: Chest Pain, Palpitations, Dyspnea on Exertion Gastrointestinal: Reports: No Symptoms. Denies: Abdominal Pain, Constipation, Diarrhea, Nausea, Vomiting Genitourinary: Reports: No Symptoms. Denies: Pain Musculoskeletal: Reports: No Symptoms Skin: Reports: No Symptoms. Denies: Cyanosis Neurological: Reports: No Symptoms. Denies: Confusion, Dizziness, Headache, Numbness, Seizure, Syncope, Tingling, Difficulty Walking, Gait Disturbance Psychiatric: Reports: No Symptoms - Patient Data Vitals - Most Recent: Last Vital Signs Temp 97.9 F 03/23/21 23:51 Pulse 75 03/23/21 23:51 Resp 20 03/23/21 23:51 BP 124/76 03/23/21 23:51 Pulse Ox 90 L 03/24/21 07:51 Weight - Most Recent: 262 lb 6.4 oz I&O - Last 24 Hours: Intake & Output 03/23/21 03/24/21 03/24/21 22:59 06:59 14:59 Intake Total 1600 Output Total 1600 350 Balance 0 -350 Lab Results Last 24 Hours: Laboratory Results - last 24 hr 03/23/21 03/23/21 03/23/21 Range/Units 06:45 11:45 17:23 WBC (4.23-9.07) K/mm3 RBC (4.63-6.08) M/mm3 Hgb (13.7-17.5) gm/dl Hct (40.1-51.0) % MCV (79.0-92.2) fl MCH (25.7-32.2) pg MCHC (32.2-35.5) g/dl RDW Std Deviation (35.1-43.9) fL Plt Count (163-337) K/mm3 MPV (9.4-12.3) fl Neut % (Auto) (34.0-67.9) % Lymph % (Auto) (21.8-53.1) % Mobile % (Auto) (5.3-12.2) % Eos % (Auto) (0.8-7.0) Baso % (Auto) (0.1-1.2) % Neut # (Auto) (1.78-5.38) K/mm3 Lymph # (Auto) (1.32-3.57) K/mm3 Mobile # (Auto) (0.30-0.82) K/mm3 Eos # (Auto) (0.04-0.54) K/mm3 Baso # (Auto) (0.01-0.08) K/mm3 Manual Slide Review D-Dimer, Quantitative 0.61 H (0.19-0.50) mg/L Sodium (136-145) mEq/L Potassium (3.5-5.1) mEq/L Chloride (98-107) mEq/L Carbon Dioxide (21-32) mEq/L Anion Gap (5-15) BUN (7-18) mg/dL Creatinine (0.7-1.3) mg/dL Est Cr Clr Drug Dosing mL/min Estimated GFR (MDRD) (>60) mL/min BUN/Creatinine Ratio (14-18) Glucose (70-99) mg/dL POC Glucose 324 H 201 H (70-99) mg/dL Calcium (8.5-10.1) mg/dL Phosphorus (2.6-4.7) mg/dL Magnesium (1.8-2.4) mg/dL Total Bilirubin (0.2-1.0) mg/dL AST (15-37) U/L ALT (16-63) U/L Alkaline Phosphatase (46-116) U/L C-Reactive Protein (<1.0) mg/dL Total Protein (6.4-8.2) g/dl Albumin (3.4-5.0) g/dl Globulin gm/dL Albumin/Globulin Ratio (1-2) 03/23/21 03/24/21 03/24/21 Range/Units 20:31 05:14 05:16 WBC 7.38 (4.23-9.07) K/mm3 RBC 5.13 (4.63-6.08) M/mm3 Hgb 14.8 (13.7-17.5) gm/dl Hct 45.3 (40.1-51.0) % MCV 88.3 (79.0-92.2) fl MCH 28.8 (25.7-32.2) pg MCHC 32.7 (32.2-35.5) g/dl RDW Std Deviation 40.9 (35.1-43.9) fL Plt Count 248 (163-337) K/mm3 MPV 11.3 (9.4-12.3) fl Neut % (Auto) 74.9 H (34.0-67.9) % Lymph % (Auto) 9.5 L (21.8-53.1) % Mobile % (Auto) 15.2 H (5.3-12.2) % Eos % (Auto) 0 L (0.8-7.0) Baso % (Auto) 0.0 L (0.1-1.2) % Neut # (Auto) 5.53 H (1.78-5.38) K/mm3 Lymph # (Auto) 0.70 L (1.32-3.57) K/mm3 Mobile # (Auto) 1.12 H (0.30-0.82) K/mm3 Eos # (Auto) 0.00 L (0.04-0.54) K/mm3 Baso # (Auto) 0.00 L (0.01-0.08) K/mm3 Manual Slide Review Normal smear D-Dimer, Quantitative (0.19-0.50) mg/L Sodium 138 (136-145) mEq/L Potassium 4.0 (3.5-5.1) mEq/L Chloride 104 (98-107) mEq/L Carbon Dioxide 25 (21-32) mEq/L Anion Gap 13.0 (5-15) BUN 23 H (7-18) mg/dL Creatinine 1.0 (0.7-1.3) mg/dL Est Cr Clr Drug Dosing 108.01 mL/min Estimated GFR (MDRD) > 60 (>60) mL/min BUN/Creatinine Ratio 23.0 H (14-18) Glucose 234 H (70-99) mg/dL POC Glucose 224 H (70-99) mg/dL Calcium 8.3 L (8.5-10.1) mg/dL Phosphorus 4.5 (2.6-4.7) mg/dL Magnesium 2.1 (1.8-2.4) mg/dL Total Bilirubin 0.6 (0.2-1.0) mg/dL AST 47 H (15-37) U/L ALT 80 H (16-63) U/L Alkaline Phosphatase 45 L (46-116) U/L C-Reactive Protein 3.1 H* (<1.0) mg/dL Total Protein 6.1 L (6.4-8.2) g/dl Albumin 2.4 L (3.4-5.0) g/dl Globulin 3.7 gm/dL Albumin/Globulin Ratio 0.7 L (1-2) 03/24/21 03/24/21 Range/Units 05:16 05:47 WBC (4.23-9.07) K/mm3 RBC (4.63-6.08) M/mm3 Hgb (13.7-17.5) gm/dl Hct (40.1-51.0) % MCV (79.0-92.2) fl MCH (25.7-32.2) pg MCHC (32.2-35.5) g/dl RDW Std Deviation (35.1-43.9) fL Plt Count (163-337) K/mm3 MPV (9.4-12.3) fl Neut % (Auto) (34.0-67.9) % Lymph % (Auto) (21.8-53.1) % Mobile % (Auto) (5.3-12.2) % Eos % (Auto) (0.8-7.0) Baso % (Auto) (0.1-1.2) % Neut # (Auto) (1.78-5.38) K/mm3 Lymph # (Auto) (1.32-3.57) K/mm3 Mobile # (Auto) (0.30-0.82) K/mm3 Eos # (Auto) (0.04-0.54) K/mm3 Baso # (Auto) (0.01-0.08) K/mm3 Manual Slide Review D-Dimer, Quantitative 0.29 (0.19-0.50) mg/L Sodium (136-145) mEq/L Potassium (3.5-5.1) mEq/L Chloride (98-107) mEq/L Carbon Dioxide (21-32) mEq/L Anion Gap (5-15) BUN (7-18) mg/dL Creatinine (0.7-1.3) mg/dL Est Cr Clr Drug Dosing mL/min Estimated GFR (MDRD) (>60) mL/min BUN/Creatinine Ratio (14-18) Glucose (70-99) mg/dL POC Glucose 198 H (70-99) mg/dL Calcium (8.5-10.1) mg/dL Phosphorus (2.6-4.7) mg/dL Magnesium (1.8-2.4) mg/dL Total Bilirubin (0.2-1.0) mg/dL AST (15-37) U/L ALT (16-63) U/L Alkaline Phosphatase (46-116) U/L C-Reactive Protein (<1.0) mg/dL Total Protein (6.4-8.2) g/dl Albumin (3.4-5.0) g/dl Globulin gm/dL Albumin/Globulin Ratio (1-2) Med Orders - Current: Current Medications Acetaminophen (Acetaminophen 325 Mg/10.15 Ml Ml) 650 mg PO Q4H PRN PRN Reason: Pain (mild 1-3) or fever > 101 Albuterol (Albuterol 6.7 Gm Inhaler) 0 gm INH Q4H PRN PRN Reason: Shortness of Breath Last Admin: 03/24/21 07:51 Dose: 2 puff Documented by: Albuterol/Ipratropium (Albuterol/Ipratropium 3.0-0.5 Mg/3 Ml Neb Soln) 3 ml NEB Q4H PRN PRN Reason: Shortness Of Breath/wheezing Last Admin: 03/22/21 20:56 Dose: 3 ml Documented by: Dexamethasone (Dexamethasone 4 Mg/Ml Sdv) 6 mg IVPUSH DAILY [facility] Stop: 03/30/21 09:01 Last Admin: 03/24/21 08:10 Dose: 6 mg Documented by: Enoxaparin Sodium (Enoxaparin 40 Mg/0.4 Ml Syringe) 40 mg SUBCUT BID [facility] Last Admin: 03/24/21 08:10 Dose: 40 mg Documented by: Remdesivir 100 mg/ Sodium (Chloride) 100 mls @ 100 mls/hr IV Q24H [facility] Stop: 03/25/21 20:59 Last Admin: 03/23/21 20:46 Dose: 100 mls/hr Documented by: Ibuprofen (Ibuprofen Susp 100 Mg/5 Ml 5 Ml Ud Cup) 600 mg PO Q6H PRN PRN Reason: Pain (moderate 4-6) Insulin Glargine (Insulin Glarg,Human.Rec.Analog 100 Unit/Ml) 10 unit SUBCUT BIDAC [facility] Last Admin: 03/24/21 06:02 Dose: 10 units Documented by: Insulin Human Lispro (Insulin Lispro 100 Unit/Ml 10 Ml Vial) 0 unit SUBCUT QIDACANDBED [facility]; Protocol Last Admin: 03/24/21 08:10 Dose: 2 units Documented by: Ondansetron HCl (Ondansetron 4 Mg/2 Ml Sdv) 4 mg IV Q6H PRN PRN Reason: Nausea/Vomiting Sodium Chloride (Sodium Chloride 0.9% 10 Ml Syringe) 10 ml FLUSH ASDIRECTED PRN PRN Reason: Keep Vein Open Discontinued Medications Acetaminophen (Acetaminophen 325 Mg Tab) 650 mg PO Q4H PRN PRN Reason: Pain (Mild 1-3)/fever Acetaminophen (Acetaminophen 325 Mg Tab) 650 mg PO Q4H PRN PRN Reason: Fever Greater Than 101 Acetaminophen (Acetaminophen 325 Mg/10.15 Ml Ml) 650 mg PO Q4H PRN PRN Reason: Fever Dexamethasone (Dexamethasone 10 Mg/Ml Sdv) 6 mg IVPUSH ONETIME ONE Stop: 03/21/21 16:44 Last Admin: 03/21/21 18:08 Dose: 6 mg Documented by: Dexamethasone (Dexamethasone 4 Mg Tab) 6 mg PO DAILY PRE[facility] Stop: 03/31/21 09:01 Remdesivir 200 mg/ Sodium (Chloride) 250 mls @ 250 mls/hr IV ONETIME ONE Stop: 03/21/21 16:44 Last Admin: 03/21/21 18:08 Dose: 250 mls/hr Documented by: Ibuprofen (Ibuprofen 600 Mg Tab) 600 mg PO Q6H PRN PRN Reason: Pain (moderate 4-6) Temazepam (Temazepam 7.5 Mg Cap) 7.5 mg PO BEDTIME PRN PRN Reason: Sleep - Exam Quality Assessment: Supplemental Oxygen (2L), DVT Prophylaxis. No: Urine Catheter General: Alert, Oriented, Cooperative, No Acute Distress HEENT: Pupils Equal, Pupils Reactive, Mucous Membr. Moist/[place] Neck: Supple, Trachea Midline Lungs: Normal Respiratory Effort, Decreased Breath Sounds, Crackles Cardiovascular: Regular Rate, Regular Rhythm GI/Abdominal Exam: Normal Bowel Sounds, Soft, Non-Tender, No Distention, No Abnormal Bruit (Male) Exam: Deferred Back Exam: Normal Inspection, Full Range of Motion Extremities: Normal Inspection, Normal Range of Motion, Non-Tender, No Pedal Edema, Normal Capillary Refill Peripheral Pulses: 2+: Radial (L), Radial (R) Skin: Warm, Dry, Intact Neurological: No New Focal Deficit Psy/Mental Status: Alert, Normal Affect, Normal Mood - Patient Data Lab Results Last 24 hrs: Laboratory Results - last 24 hr 03/23/21 03/23/21 03/23/21 Range/Units 06:45 11:45 17:23 WBC (4.23-9.07) K/mm3 RBC (4.63-6.08) M/mm3 Hgb (13.7-17.5) gm/dl Hct (40.1-51.0) % MCV (79.0-92.2) fl MCH (25.7-32.2) pg MCHC (32.2-35.5) g/dl RDW Std Deviation (35.1-43.9) fL Plt Count (163-337) K/mm3 MPV (9.4-12.3) fl Neut % (Auto) (34.0-67.9) % Lymph % (Auto) (21.8-53.1) % Mobile % (Auto) (5.3-12.2) % Eos % (Auto) (0.8-7.0) Baso % (Auto) (0.1-1.2) % Neut # (Auto) (1.78-5.38) K/mm3 Lymph # (Auto) (1.32-3.57) K/mm3 Mobile # (Auto) (0.30-0.82) K/mm3 Eos # (Auto) (0.04-0.54) K/mm3 Baso # (Auto) (0.01-0.08) K/mm3 Manual Slide Review D-Dimer, Quantitative 0.61 H (0.19-0.50) mg/L Sodium (136-145) mEq/L Potassium (3.5-5.1) mEq/L Chloride (98-107) mEq/L Carbon Dioxide (21-32) mEq/L Anion Gap (5-15) BUN (7-18) mg/dL Creatinine (0.7-1.3) mg/dL Est Cr Clr Drug Dosing mL/min Estimated GFR (MDRD) (>60) mL/min BUN/Creatinine Ratio (14-18) Glucose (70-99) mg/dL POC Glucose 324 H 201 H (70-99) mg/dL Calcium (8.5-10.1) mg/dL Phosphorus (2.6-4.7) mg/dL Magnesium (1.8-2.4) mg/dL Total Bilirubin (0.2-1.0) mg/dL AST (15-37) U/L ALT (16-63) U/L Alkaline Phosphatase (46-116) U/L C-Reactive Protein (<1.0) mg/dL Total Protein (6.4-8.2) g/dl Albumin (3.4-5.0) g/dl Globulin gm/dL Albumin/Globulin Ratio (1-2) 03/23/21 03/24/21 03/24/21 Range/Units 20:31 05:14 05:16 WBC 7.38 (4.23-9.07) K/mm3 RBC 5.13 (4.63-6.08) M/mm3 Hgb 14.8 (13.7-17.5) gm/dl Hct 45.3 (40.1-51.0) % MCV 88.3 (79.0-92.2) fl MCH 28.8 (25.7-32.2) pg MCHC 32.7 (32.2-35.5) g/dl RDW Std Deviation 40.9 (35.1-43.9) fL Plt Count 248 (163-337) K/mm3 MPV 11.3 (9.4-12.3) fl Neut % (Auto) 74.9 H (34.0-67.9) % Lymph % (Auto) 9.5 L (21.8-53.1) % Mobile % (Auto) 15.2 H (5.3-12.2) % Eos % (Auto) 0 L (0.8-7.0) Baso % (Auto) 0.0 L (0.1-1.2) % Neut # (Auto) 5.53 H (1.78-5.38) K/mm3 Lymph # (Auto) 0.70 L (1.32-3.57) K/mm3 Mobile # (Auto) 1.12 H (0.30-0.82) K/mm3 Eos # (Auto) 0.00 L (0.04-0.54) K/mm3 Baso # (Auto) 0.00 L (0.01-0.08) K/mm3 Manual Slide Review Normal smear D-Dimer, Quantitative (0.19-0.50) mg/L Sodium 138 (136-145) mEq/L Potassium 4.0 (3.5-5.1) mEq/L Chloride 104 (98-107) mEq/L Carbon Dioxide 25 (21-32) mEq/L Anion Gap 13.0 (5-15) BUN 23 H (7-18) mg/dL Creatinine 1.0 (0.7-1.3) mg/dL Est Cr Clr Drug Dosing 108.01 mL/min Estimated GFR (MDRD) > 60 (>60) mL/min BUN/Creatinine Ratio 23.0 H (14-18) Glucose 234 H (70-99) mg/dL POC Glucose 224 H (70-99) mg/dL Calcium 8.3 L (8.5-10.1) mg/dL Phosphorus 4.5 (2.6-4.7) mg/dL Magnesium 2.1 (1.8-2.4) mg/dL Total Bilirubin 0.6 (0.2-1.0) mg/dL AST 47 H (15-37) U/L ALT 80 H (16-63) U/L Alkaline Phosphatase 45 L (46-116) U/L C-Reactive Protein 3.1 H* (<1.0) mg/dL Total Protein 6.1 L (6.4-8.2) g/dl Albumin 2.4 L (3.4-5.0) g/dl Globulin 3.7 gm/dL Albumin/Globulin Ratio 0.7 L (1-2) 03/24/21 03/24/21 Range/Units 05:16 05:47 WBC (4.23-9.07) K/mm3 RBC (4.63-6.08) M/mm3 Hgb (13.7-17.5) gm/dl Hct (40.1-51.0) % MCV (79.0-92.2) fl MCH (25.7-32.2) pg MCHC (32.2-35.5) g/dl RDW Std Deviation (35.1-43.9) fL Plt Count (163-337) K/mm3 MPV (9.4-12.3) fl Neut % (Auto) (34.0-67.9) % Lymph % (Auto) (21.8-53.1) % Mobile % (Auto) (5.3-12.2) % Eos % (Auto) (0.8-7.0) Baso % (Auto) (0.1-1.2) % Neut # (Auto) (1.78-5.38) K/mm3 Lymph # (Auto) (1.32-3.57) K/mm3 Mobile # (Auto) (0.30-0.82) K/mm3 Eos # (Auto) (0.04-0.54) K/mm3 Baso # (Auto) (0.01-0.08) K/mm3 Manual Slide Review D-Dimer, Quantitative 0.29 (0.19-0.50) mg/L Sodium (136-145) mEq/L Potassium (3.5-5.1) mEq/L Chloride (98-107) mEq/L Carbon Dioxide (21-32) mEq/L Anion Gap (5-15) BUN (7-18) mg/dL Creatinine (0.7-1.3) mg/dL Est Cr Clr Drug Dosing mL/min Estimated GFR (MDRD) (>60) mL/min BUN/Creatinine Ratio (14-18) Glucose (70-99) mg/dL POC Glucose 198 H (70-99) mg/dL Calcium (8.5-10.1) mg/dL Phosphorus (2.6-4.7) mg/dL Magnesium (1.8-2.4) mg/dL Total Bilirubin (0.2-1.0) mg/dL AST (15-37) U/L ALT (16-63) U/L Alkaline Phosphatase (46-116) U/L C-Reactive Protein (<1.0) mg/dL Total Protein (6.4-8.2) g/dl Albumin (3.4-5.0) g/dl Globulin gm/dL Albumin/Globulin Ratio (1-2) Result Diagrams: 03/24/21 05:16 03/24/21 05:14 Sepsis Event Note - Evaluation Sepsis Screening Result: No Definite Risk - Focused Exam Vital Signs: Vital Signs Temp Pulse Resp BP Pulse Ox Pulse Ox 03/24/21 07:51 90 L 03/24/21 05:21 93 L 03/23/21 23:51 97.9 F 75 20 124/76 93 L 03/23/21 20:33 97.9 F 72 20 120/60 95 - Problem List & Annotations (1) New onset type 2 diabetes mellitus SNOMED Code(s): 04862582 Code(s): E11.9 - TYPE 2 DIABETES MELLITUS WITHOUT COMPLICATIONS Status: Acute Priority: High Current Visit: Yes (2) COVID-19 SNOMED Code(s): 756763537 Code(s): U07.1 - COVID-19 Status: Acute Priority: High Current Visit: Yes (3) Elevated BP without diagnosis of hypertension SNOMED Code(s): 952891112 Code(s): R03.0 - ELEVATED BLOOD-PRESSURE READING, W/O DIAGNOSIS OF HTN Status: Acute Current Visit: Yes (4) Hypoxia SNOMED Code(s): 329561302 Code(s): R09.02 - HYPOXEMIA Status: Acute Priority: High Current Visit: Yes (5) Obesity SNOMED Code(s): 215140199, 875837609 Code(s): E66.9 - OBESITY, UNSPECIFIED Status: Chronic Priority: Medium Current Visit: Yes Qualifiers: Obesity type: unspecified obesity type Obesity classification: adult class 2 (BMI 35 - 39.9) Serious obesity comorbidity presence: with serious comorbidity Body mass index: BMI 38.0-38.9 Qualified Code(s): E66.01 - Morbid (severe) obesity due to excess calories; Z68.38 - Body mass index [BMI] 38.0-38.9, adult (6) Pneumonia due to COVID-19 virus SNOMED Code(s): 634294274045830840 Code(s): U07.1 - COVID-19; J12.82 - PNEUMONIA DUE TO CORONAVIRUS DISEASE 2018 Status: Acute Priority: High Current Visit: Yes (7) Transaminitis SNOMED Code(s): 184860151, 723732240 Code(s): R74.01 - ELEVATION OF LEVELS OF LIVER TRANSAMINASE LEVELS Status: Acute Priority: Medium Current Visit: Yes - Problem List Review Problem List Initiated/Reviewed/Updated: Yes - Plan Plan:: 31-year-old obese male not vaccinated against COVID-19 admitted with Covid pneumonia. Elevated A1c and blood sugars noted. Diagnosed with diabetes mellitus. COVID-19 pneumonia with hypoxemia * Requiring 2 liters per minute nasal cannula * Symptoms for started on March 15 * Received remdesivir and dexamethasone in the emergency department * Continuing on remdesivir and dexamethasone on the floor * No history of smoking. * Labs stable. CRP decreased to 3.1 Transaminitisimproving * AST 60-->47, ALT 81-->80 * Normal total bilirubin * albumin 2.5-->2.5 * Likely multifactorial including fatty liver, diabetes, and COVID-19 * Will need to follow New onset diabetes * glucose in the low 200s * Patient denies diabetes * Hemoglobin A1c is 7.2 making it likely he has diabetes. 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 Elevated blood pressure without diagnosis of hypertensionresolved * Systolic blood pressure 160 on presentation to the emergency department * Blood pressures normal * No history of hypertension Plan * Admit to medical floor * FiO2 to keep SPO2 between 88 and 94% * RT consult, Acapella, incentive spirometry, albuterol MDI as needed, DuoNeb every 4 hours as needed * Continue remdesivir and dexamethasone * Start Mucinex BID * Diabetic education and dietitian consulted * Start Lantus 10 units twice daily * Check urine for microalbumin creatinine ratio/UA * Continue sliding scale insulin, but will need prandial insulin * Likely benefit from going home on Metformin, patient has a phobia to pills * Follow blood pressure * Follow CBC, CMP, magnesium, phosphorus, CRP, D-dimer * VTE prophylaxis with Lovenox * CODE STATUS: Full code <Kristine Doty - Last Filed: 03/24/21 18:51> - Patient Data Vitals - Most Recent: Last Vital Signs Temp 98.2 F 03/24/21 11:26 Pulse 79 03/24/21 11:26 Resp 20 03/24/21 11:26 BP 133/66 03/24/21 11:26 Pulse Ox 94 L 03/24/21 11:26 I&O - Last 24 Hours: Intake & Output 03/23/21 03/24/21 03/24/21 22:59 06:59 14:59 Intake Total 1600 0 Output Total 1600 350 Balance 0 -350 0 Lab Results Last 24 Hours: Laboratory Results - last 24 hr 03/23/21 03/23/21 03/24/21 Range/Units 17:23 20:31 05:14 WBC (4.23-9.07) K/mm3 RBC (4.63-6.08) M/mm3 Hgb (13.7-17.5) gm/dl Hct (40.1-51.0) % MCV (79.0-92.2) fl MCH (25.7-32.2) pg MCHC (32.2-35.5) g/dl RDW Std Deviation (35.1-43.9) fL Plt Count (163-337) K/mm3 MPV (9.4-12.3) fl Neut % (Auto) (34.0-67.9) % Lymph % (Auto) (21.8-53.1) % Mobile % (Auto) (5.3-12.2) % Eos % (Auto) (0.8-7.0) Baso % (Auto) (0.1-1.2) % Neut # (Auto) (1.78-5.38) K/mm3 Lymph # (Auto) (1.32-3.57) K/mm3 Mobile # (Auto) (0.30-0.82) K/mm3 Eos # (Auto) (0.04-0.54) K/mm3 Baso # (Auto) (0.01-0.08) K/mm3 Manual Slide Review D-Dimer, Quantitative (0.19-0.50) mg/L Sodium 138 (136-145) mEq/L Potassium 4.0 (3.5-5.1) mEq/L Chloride 104 (98-107) mEq/L Carbon Dioxide 25 (21-32) mEq/L Anion Gap 13.0 (5-15) BUN 23 H (7-18) mg/dL Creatinine 1.0 (0.7-1.3) mg/dL Est Cr Clr Drug Dosing 108.01 mL/min Estimated GFR (MDRD) > 60 (>60) mL/min BUN/Creatinine Ratio 23.0 H (14-18) Glucose 234 H (70-99) mg/dL POC Glucose 201 H 224 H (70-99) mg/dL Calcium 8.3 L (8.5-10.1) mg/dL Phosphorus 4.5 (2.6-4.7) mg/dL Magnesium 2.1 (1.8-2.4) mg/dL Total Bilirubin 0.6 (0.2-1.0) mg/dL AST 47 H (15-37) U/L ALT 80 H (16-63) U/L Alkaline Phosphatase 45 L (46-116) U/L C-Reactive Protein 3.1 H* (<1.0) mg/dL Total Protein 6.1 L (6.4-8.2) g/dl Albumin 2.4 L (3.4-5.0) g/dl Globulin 3.7 gm/dL Albumin/Globulin Ratio 0.7 L (1-2) Urine Color (Yellow) Urine Appearance (Clear) Urine pH (5.0-8.0) Ur Specific Reading (1.005-1.030) Urine Protein (Negative) Urine Glucose (UA) (Negative) Urine Ketones (Negative) Urine Occult Blood (Negative) Urine Nitrite (Negative) Urine Bilirubin (Negative) Urine Urobilinogen (0.2-1.0) Ur Leukocyte Esterase (Negative) 03/24/21 03/24/21 03/24/21 Range/Units 05:16 05:16 05:47 WBC 7.38 (4.23-9.07) K/mm3 RBC 5.13 (4.63-6.08) M/mm3 Hgb 14.8 (13.7-17.5) gm/dl Hct 45.3 (40.1-51.0) % MCV 88.3 (79.0-92.2) fl MCH 28.8 (25.7-32.2) pg MCHC 32.7 (32.2-35.5) g/dl RDW Std Deviation 40.9 (35.1-43.9) fL Plt Count 248 (163-337) K/mm3 MPV 11.3 (9.4-12.3) fl Neut % (Auto) 74.9 H (34.0-67.9) % Lymph % (Auto) 9.5 L (21.8-53.1) % Mobile % (Auto) 15.2 H (5.3-12.2) % Eos % (Auto) 0 L (0.8-7.0) Baso % (Auto) 0.0 L (0.1-1.2) % Neut # (Auto) 5.53 H (1.78-5.38) K/mm3 Lymph # (Auto) 0.70 L (1.32-3.57) K/mm3 Mobile # (Auto) 1.12 H (0.30-0.82) K/mm3 Eos # (Auto) 0.00 L (0.04-0.54) K/mm3 Baso # (Auto) 0.00 L (0.01-0.08) K/mm3 Manual Slide Review Normal smear D-Dimer, Quantitative 0.29 (0.19-0.50) mg/L Sodium (136-145) mEq/L Potassium (3.5-5.1) mEq/L Chloride (98-107) mEq/L Carbon Dioxide (21-32) mEq/L Anion Gap (5-15) BUN (7-18) mg/dL Creatinine (0.7-1.3) mg/dL Est Cr Clr Drug Dosing mL/min Estimated GFR (MDRD) (>60) mL/min BUN/Creatinine Ratio (14-18) Glucose (70-99) mg/dL POC Glucose 198 H (70-99) mg/dL Calcium (8.5-10.1) mg/dL Phosphorus (2.6-4.7) mg/dL Magnesium (1.8-2.4) mg/dL Total Bilirubin (0.2-1.0) mg/dL AST (15-37) U/L ALT (16-63) U/L Alkaline Phosphatase (46-116) U/L C-Reactive Protein (<1.0) mg/dL Total Protein (6.4-8.2) g/dl Albumin (3.4-5.0) g/dl Globulin gm/dL Albumin/Globulin Ratio (1-2) Urine Color (Yellow) Urine Appearance (Clear) Urine pH (5.0-8.0) Ur Specific Reading (1.005-1.030) Urine Protein (Negative) Urine Glucose (UA) (Negative) Urine Ketones (Negative) Urine Occult Blood (Negative) Urine Nitrite (Negative) Urine Bilirubin (Negative) Urine Urobilinogen (0.2-1.0) Ur Leukocyte Esterase (Negative) 03/24/21 03/24/21 Range/Units 11:18 13:58 WBC (4.23-9.07) K/mm3 RBC (4.63-6.08) M/mm3 Hgb (13.7-17.5) gm/dl Hct (40.1-51.0) % MCV (79.0-92.2) fl MCH (25.7-32.2) pg MCHC (32.2-35.5) g/dl RDW Std Deviation (35.1-43.9) fL Plt Count (163-337) K/mm3 MPV (9.4-12.3) fl Neut % (Auto) (34.0-67.9) % Lymph % (Auto) (21.8-53.1) % Mobile % (Auto) (5.3-12.2) % Eos % (Auto) (0.8-7.0) Baso % (Auto) (0.1-1.2) % Neut # (Auto) (1.78-5.38) K/mm3 Lymph # (Auto) (1.32-3.57) K/mm3 Mobile # (Auto) (0.30-0.82) K/mm3 Eos # (Auto) (0.04-0.54) K/mm3 Baso # (Auto) (0.01-0.08) K/mm3 Manual Slide Review D-Dimer, Quantitative (0.19-0.50) mg/L Sodium (136-145) mEq/L Potassium (3.5-5.1) mEq/L Chloride (98-107) mEq/L Carbon Dioxide (21-32) mEq/L Anion Gap (5-15) BUN (7-18) mg/dL Creatinine (0.7-1.3) mg/dL Est Cr Clr Drug Dosing mL/min Estimated GFR (MDRD) (>60) mL/min BUN/Creatinine Ratio (14-18) Glucose (70-99) mg/dL POC Glucose 216 H (70-99) mg/dL Calcium (8.5-10.1) mg/dL Phosphorus (2.6-4.7) mg/dL Magnesium (1.8-2.4) mg/dL Total Bilirubin (0.2-1.0) mg/dL AST (15-37) U/L ALT (16-63) U/L Alkaline Phosphatase (46-116) U/L C-Reactive Protein (<1.0) mg/dL Total Protein (6.4-8.2) g/dl Albumin (3.4-5.0) g/dl Globulin gm/dL Albumin/Globulin Ratio (1-2) Urine Color Yellow (Yellow) Urine Appearance Clear (Clear) Urine pH 7.0 (5.0-8.0) Ur Specific Reading 1.020 (1.005-1.030) Urine Protein Negative (Negative) Urine Glucose (UA) Trace H (Negative) Urine Ketones 1+ H (Negative) Urine Occult Blood Negative (Negative) Urine Nitrite Negative (Negative) Urine Bilirubin Negative (Negative) Urine Urobilinogen 1.0 (0.2-1.0) Ur Leukocyte Esterase Negative (Negative) Med Orders - Current: Current Medications Acetaminophen (Acetaminophen 325 Mg/10.15 Ml Ml) 650 mg PO Q4H PRN PRN Reason: Pain (mild 1-3) or fever > 101 Albuterol (Albuterol 6.7 Gm Inhaler) 0 gm INH Q4H PRN PRN Reason: Shortness of Breath Last Admin: 03/24/21 07:51 Dose: 2 puff Documented by: Albuterol/Ipratropium (Albuterol/Ipratropium 3.0-0.5 Mg/3 Ml Neb Soln) 3 ml NEB Q4H PRN PRN Reason: Shortness Of Breath/wheezing Last Admin: 03/22/21 20:56 Dose: 3 ml Documented by: Dexamethasone (Dexamethasone 4 Mg/Ml Sdv) 6 mg IVPUSH DAILY [facility] Stop: 03/30/21 09:01 Last Admin: 03/24/21 08:10 Dose: 6 mg Documented by: Enoxaparin Sodium (Enoxaparin 40 Mg/0.4 Ml Syringe) 40 mg SUBCUT BID [facility] Last Admin: 03/24/21 08:10 Dose: 40 mg Documented by: Guaifenesin (Guaifenesin 100 Mg/5 Ml Soln 10 Ml Ud Cup) 200 mg PO Q4H [facility] Last Admin: 03/24/21 13:55 Dose: 200 mg Documented by: Remdesivir 100 mg/ Sodium (Chloride) 100 mls @ 100 mls/hr IV Q24H [facility] Stop: 03/25/21 20:59 Last Admin: 03/23/21 20:46 Dose: 100 mls/hr Documented by: Ibuprofen (Ibuprofen Susp 100 Mg/5 Ml 5 Ml Ud Cup) 600 mg PO Q6H PRN PRN Reason: Pain (moderate 4-6) Insulin Glargine (Insulin Glarg,Human.Rec.Analog 100 Unit/Ml) 10 unit SUBCUT BIDAC [facility] Last Admin: 03/24/21 06:02 Dose: 10 units Documented by: Insulin Human Lispro (Insulin Lispro 100 Unit/Ml 10 Ml Vial) 0 unit SUBCUT [facility]; Protocol Last Admin: 03/24/21 12:41 Dose: 4 units Documented by: Ondansetron HCl (Ondansetron 4 Mg/2 Ml Sdv) 4 mg IV Q6H PRN PRN Reason: Nausea/Vomiting Sodium Chloride (Sodium Chloride 0.9% 10 Ml Syringe) 10 ml FLUSH ASDIRECTED PRN PRN Reason: Keep Vein Open Discontinued Medications Acetaminophen (Acetaminophen 325 Mg Tab) 650 mg PO Q4H PRN PRN Reason: Pain (Mild 1-3)/fever Acetaminophen (Acetaminophen 325 Mg Tab) 650 mg PO Q4H PRN PRN Reason: Fever Greater Than 101 Acetaminophen (Acetaminophen 325 Mg/10.15 Ml Ml) 650 mg PO Q4H PRN PRN Reason: Fever Dexamethasone (Dexamethasone 10 Mg/Ml Sdv) 6 mg IVPUSH ONETIME ONE Stop: 03/21/21 16:44 Last Admin: 03/21/21 18:08 Dose: 6 mg Documented by: Dexamethasone (Dexamethasone 4 Mg Tab) 6 mg PO DAILY PREET Stop: 03/31/21 09:01 Guaifenesin (Guaifenesin 600 Mg Tab.Er) 600 mg PO BID [facility] Last Admin: 03/24/21 13:42 Dose: Not Given Documented by: Remdesivir 200 mg/ Sodium (Chloride) 250 mls @ 250 mls/hr IV ONETIME ONE Stop: 03/21/21 16:44 Last Admin: 03/21/21 18:08 Dose: 250 mls/hr Documented by: Ibuprofen (Ibuprofen 600 Mg Tab) 600 mg PO Q6H PRN PRN Reason: Pain (moderate 4-6) Temazepam (Temazepam 7.5 Mg Cap) 7.5 mg PO BEDTIME PRN PRN Reason: Sleep - Patient Data Lab Results Last 24 hrs: Laboratory Results - last 24 hr 03/23/21 03/23/21 03/24/21 Range/Units 17:23 20:31 05:14 WBC (4.23-9.07) K/mm3 RBC (4.63-6.08) M/mm3 Hgb (13.7-17.5) gm/dl Hct (40.1-51.0) % MCV (79.0-92.2) fl MCH (25.7-32.2) pg MCHC (32.2-35.5) g/dl RDW Std Deviation (35.1-43.9) fL Plt Count (163-337) K/mm3 MPV (9.4-12.3) fl Neut % (Auto) (34.0-67.9) % Lymph % (Auto) (21.8-53.1) % Mobile % (Auto) (5.3-12.2) % Eos % (Auto) (0.8-7.0) Baso % (Auto) (0.1-1.2) % Neut # (Auto) (1.78-5.38) K/mm3 Lymph # (Auto) (1.32-3.57) K/mm3 Mobile # (Auto) (0.30-0.82) K/mm3 Eos # (Auto) (0.04-0.54) K/mm3 Baso # (Auto) (0.01-0.08) K/mm3 Manual Slide Review D-Dimer, Quantitative (0.19-0.50) mg/L Sodium 138 (136-145) mEq/L Potassium 4.0 (3.5-5.1) mEq/L Chloride 104 (98-107) mEq/L Carbon Dioxide 25 (21-32) mEq/L Anion Gap 13.0 (5-15) BUN 23 H (7-18) mg/dL Creatinine 1.0 (0.7-1.3) mg/dL Est Cr Clr Drug Dosing 108.01 mL/min Estimated GFR (MDRD) > 60 (>60) mL/min BUN/Creatinine Ratio 23.0 H (14-18) Glucose 234 H (70-99) mg/dL POC Glucose 201 H 224 H (70-99) mg/dL Calcium 8.3 L (8.5-10.1) mg/dL Phosphorus 4.5 (2.6-4.7) mg/dL Magnesium 2.1 (1.8-2.4) mg/dL Total Bilirubin 0.6 (0.2-1.0) mg/dL AST 47 H (15-37) U/L ALT 80 H (16-63) U/L Alkaline Phosphatase 45 L (46-116) U/L C-Reactive Protein 3.1 H* (<1.0) mg/dL Total Protein 6.1 L (6.4-8.2) g/dl Albumin 2.4 L (3.4-5.0) g/dl Globulin 3.7 gm/dL Albumin/Globulin Ratio 0.7 L (1-2) Urine Color (Yellow) Urine Appearance (Clear) Urine pH (5.0-8.0) Ur Specific Reading (1.005-1.030) Urine Protein (Negative) Urine Glucose (UA) (Negative) Urine Ketones (Negative) Urine Occult Blood (Negative) Urine Nitrite (Negative) Urine Bilirubin (Negative) Urine Urobilinogen (0.2-1.0) Ur Leukocyte Esterase (Negative) 03/24/21 03/24/21 03/24/21 Range/Units 05:16 05:16 05:47 WBC 7.38 (4.23-9.07) K/mm3 RBC 5.13 (4.63-6.08) M/mm3 Hgb 14.8 (13.7-17.5) gm/dl Hct 45.3 (40.1-51.0) % MCV 88.3 (79.0-92.2) fl MCH 28.8 (25.7-32.2) pg MCHC 32.7 (32.2-35.5) g/dl RDW Std Deviation 40.9 (35.1-43.9) fL Plt Count 248 (163-337) K/mm3 MPV 11.3 (9.4-12.3) fl Neut % (Auto) 74.9 H (34.0-67.9) % Lymph % (Auto) 9.5 L (21.8-53.1) % Mobile % (Auto) 15.2 H (5.3-12.2) % Eos % (Auto) 0 L (0.8-7.0) Baso % (Auto) 0.0 L (0.1-1.2) % Neut # (Auto) 5.53 H (1.78-5.38) K/mm3 Lymph # (Auto) 0.70 L (1.32-3.57) K/mm3 Mobile # (Auto) 1.12 H (0.30-0.82) K/mm3 Eos # (Auto) 0.00 L (0.04-0.54) K/mm3 Baso # (Auto) 0.00 L (0.01-0.08) K/mm3 Manual Slide Review Normal smear D-Dimer, Quantitative 0.29 (0.19-0.50) mg/L Sodium (136-145) mEq/L Potassium (3.5-5.1) mEq/L Chloride (98-107) mEq/L Carbon Dioxide (21-32) mEq/L Anion Gap (5-15) BUN (7-18) mg/dL Creatinine (0.7-1.3) mg/dL Est Cr Clr Drug Dosing mL/min Estimated GFR (MDRD) (>60) mL/min BUN/Creatinine Ratio (14-18) Glucose (70-99) mg/dL POC Glucose 198 H (70-99) mg/dL Calcium (8.5-10.1) mg/dL Phosphorus (2.6-4.7) mg/dL Magnesium (1.8-2.4) mg/dL Total Bilirubin (0.2-1.0) mg/dL AST (15-37) U/L ALT (16-63) U/L Alkaline Phosphatase (46-116) U/L C-Reactive Protein (<1.0) mg/dL Total Protein (6.4-8.2) g/dl Albumin (3.4-5.0) g/dl Globulin gm/dL Albumin/Globulin Ratio (1-2) Urine Color (Yellow) Urine Appearance (Clear) Urine pH (5.0-8.0) Ur Specific Reading (1.005-1.030) Urine Protein (Negative) Urine Glucose (UA) (Negative) Urine Ketones (Negative) Urine Occult Blood (Negative) Urine Nitrite (Negative) Urine Bilirubin (Negative) Urine Urobilinogen (0.2-1.0) Ur Leukocyte Esterase (Negative) 03/24/21 03/24/21 Range/Units 11:18 13:58 WBC (4.23-9.07) K/mm3 RBC (4.63-6.08) M/mm3 Hgb (13.7-17.5) gm/dl Hct (40.1-51.0) % MCV (79.0-92.2) fl MCH (25.7-32.2) pg MCHC (32.2-35.5) g/dl RDW Std Deviation (35.1-43.9) fL Plt Count (163-337) K/mm3 MPV (9.4-12.3) fl Neut % (Auto) (34.0-67.9) % Lymph % (Auto) (21.8-53.1) % Mobile % (Auto) (5.3-12.2) % Eos % (Auto) (0.8-7.0) Baso % (Auto) (0.1-1.2) % Neut # (Auto) (1.78-5.38) K/mm3 Lymph # (Auto) (1.32-3.57) K/mm3 Mobile # (Auto) (0.30-0.82) K/mm3 Eos # (Auto) (0.04-0.54) K/mm3 Baso # (Auto) (0.01-0.08) K/mm3 Manual Slide Review D-Dimer, Quantitative (0.19-0.50) mg/L Sodium (136-145) mEq/L Potassium (3.5-5.1) mEq/L Chloride (98-107) mEq/L Carbon Dioxide (21-32) mEq/L Anion Gap (5-15) BUN (7-18) mg/dL Creatinine (0.7-1.3) mg/dL Est Cr Clr Drug Dosing mL/min Estimated GFR (MDRD) (>60) mL/min BUN/Creatinine Ratio (14-18) Glucose (70-99) mg/dL POC Glucose 216 H (70-99) mg/dL Calcium (8.5-10.1) mg/dL Phosphorus (2.6-4.7) mg/dL Magnesium (1.8-2.4) mg/dL Total Bilirubin (0.2-1.0) mg/dL AST (15-37) U/L ALT (16-63) U/L Alkaline Phosphatase (46-116) U/L C-Reactive Protein (<1.0) mg/dL Total Protein (6.4-8.2) g/dl Albumin (3.4-5.0) g/dl Globulin gm/dL Albumin/Globulin Ratio (1-2) Urine Color Yellow (Yellow) Urine Appearance Clear (Clear) Urine pH 7.0 (5.0-8.0) Ur Specific Reading 1.020 (1.005-1.030) Urine Protein Negative (Negative) Urine Glucose (UA) Trace H (Negative) Urine Ketones 1+ H (Negative) Urine Occult Blood Negative (Negative) Urine Nitrite Negative (Negative) Urine Bilirubin Negative (Negative) Urine Urobilinogen 1.0 (0.2-1.0) Ur Leukocyte Esterase Negative (Negative) Result Diagrams: 03/24/21 05:16 03/24/21 05:14 Sepsis Event Note - Focused Exam Vital Signs: Vital Signs Temp Pulse Resp BP Pulse Ox Pulse Ox 03/24/21 11:26 98.2 F 79 20 133/66 94 L 03/24/21 07:51 90 L 03/24/21 07:22 98.2 F 72 20 122/83 94 L 03/24/21 05:45 97.9 F 74 24 H 126/65 91 L 03/24/21 05:21 93 L - Problem List Review Problem List Initiated/Reviewed/Updated: Yes - Plan Plan:: Patient has been seen and examined and i agree with assessment and plan. Lungs: Normal Respiratory Effort, Decreased Breath Sounds, Crackles Cardiovascular: [id number] no murmur GI/Abdominal Exam: Normal Bowel Sounds, s,nt,nd Extremities: Normal Inspection, Normal Range of Motion, Non-Tender, No Pedal Edema
[2021-03-24] MEDS ORDERED: guaiFENesin 600 MG Tab.ER PO SCH (12:30)
[2021-03-24] MEDS: guaiFENesin 100 MG/5 ML Soln 10 ML UD Cup PO SCH ×3 (13:55→21:18)
[2021-03-24] MEDS: REMDESIVIR 100 MG in Sodium Chloride 0.9% 100 ML IV SCH (21:12)
[2021-03-25] MEDS: guaiFENesin 100 MG/5 ML Soln 10 ML UD Cup PO SCH ×6 (03:09→22:17)
[2021-03-25] MEDS: Insulin Glarg,Human.Rec.Analog 100 Unit/ML SUBCUT SCH ×2 (07:00→16:38)
--- NOTE | 2021-03-25 07:11 | PCM.PN ---
<Mahendra Layton - Last Filed: 03/25/21 13:08> - General Info Date of Service: 03/25/21 Admission Dx/Problem (Free Text): Admission Diagnosis/Problem Admission Diagnosis/Problem Hypoxia Functional Status: Reports: Pain Controlled, Tolerating Diet, Ambulating, Urinating, Incentive Spirometry, Other (Acapella ). Denies: New Symptoms - Review of Systems General: Reports: No Symptoms. Denies: Fever, Weakness, Fatigue, Malaise, Chills HEENT: Reports: Sinus Congestion. Denies: Headaches, Sore Throat Pulmonary: Reports: Shortness of Breath, Cough (improving ). Denies: Sputum Cardiovascular: Reports: Dyspnea on Exertion (improving ). Denies: Chest Pain, Palpitations, Edema Gastrointestinal: Reports: No Symptoms. Denies: Abdominal Pain, Constipation, Diarrhea, Nausea, Vomiting Genitourinary: Reports: No Symptoms. Denies: Pain Musculoskeletal: Reports: No Symptoms Skin: Reports: No Symptoms. Denies: Cyanosis Neurological: Reports: No Symptoms. Denies: Confusion, Dizziness, Headache, Numbness, Pre-Existing Deficit, Tingling, Difficulty Walking, Weakness, Gait Disturbance Psychiatric: Reports: No Symptoms - Patient Data Vitals - Most Recent: Last Vital Signs Temp 97.7 F 03/25/21 03:10 Pulse 75 03/25/21 03:10 Resp 24 H 03/25/21 03:10 BP 126/93 H 03/25/21 03:10 Pulse Ox 91 L 03/25/21 05:38 Weight - Most Recent: 262 lb 6.4 oz I&O - Last 24 Hours: Intake & Output 03/24/21 03/25/21 03/25/21 22:59 06:59 14:59 Intake Total 1740 Output Total 1500 Balance 240 Lab Results Last 24 Hours: Laboratory Results - last 24 hr 03/24/21 03/24/21 03/24/21 Range/Units 05:16 11:18 12:28 WBC (4.23-9.07) K/mm3 RBC (4.63-6.08) M/mm3 Hgb (13.7-17.5) gm/dl Hct (40.1-51.0) % MCV (79.0-92.2) fl MCH (25.7-32.2) pg MCHC (32.2-35.5) g/dl RDW Std Deviation (35.1-43.9) fL Plt Count (163-337) K/mm3 MPV (9.4-12.3) fl Neut % (Auto) (34.0-67.9) % Lymph % (Auto) (21.8-53.1) % Lake % (Auto) (5.3-12.2) % Eos % (Auto) (0.8-7.0) Baso % (Auto) (0.1-1.2) % Neut # (Auto) (1.78-5.38) K/mm3 Lymph # (Auto) (1.32-3.57) K/mm3 Lake # (Auto) (0.30-0.82) K/mm3 Eos # (Auto) (0.04-0.54) K/mm3 Baso # (Auto) (0.01-0.08) K/mm3 Manual Slide Review Normal smear D-Dimer, Quantitative (0.19-0.50) mg/L Sodium (136-145) mEq/L Potassium (3.5-5.1) mEq/L Chloride (98-107) mEq/L Carbon Dioxide (21-32) mEq/L Anion Gap (5-15) BUN (7-18) mg/dL Creatinine (0.7-1.3) mg/dL Est Cr Clr Drug Dosing mL/min Estimated GFR (MDRD) (>60) mL/min BUN/Creatinine Ratio (14-18) Glucose (70-99) mg/dL POC Glucose 216 H (70-99) mg/dL Calcium (8.5-10.1) mg/dL Phosphorus (2.6-4.7) mg/dL Magnesium (1.8-2.4) mg/dL Total Bilirubin (0.2-1.0) mg/dL AST (15-37) U/L ALT (16-63) U/L Alkaline Phosphatase (46-116) U/L C-Reactive Protein (<1.0) mg/dL Total Protein (6.4-8.2) g/dl Albumin (3.4-5.0) g/dl Globulin gm/dL Albumin/Globulin Ratio (1-2) Urine Color (Yellow) Urine Appearance (Clear) Urine pH (5.0-8.0) Ur Specific [place] (1.005-1.030) Urine Protein (Negative) Urine Glucose (UA) (Negative) Urine Ketones (Negative) Urine Occult Blood (Negative) Urine Nitrite (Negative) Urine Bilirubin (Negative) Urine Urobilinogen (0.2-1.0) Ur Leukocyte Esterase (Negative) Ur Random Creatinine 91.2 (30.0-125.0) mg/dL Ur Random Microalbumin < 1.3 L (1.3-20.0) mg/L Microalb/Creat Ratio TNP 03/24/21 03/24/21 03/24/21 Range/Units 13:58 17:10 21:16 WBC (4.23-9.07) K/mm3 RBC (4.63-6.08) M/mm3 Hgb (13.7-17.5) gm/dl Hct (40.1-51.0) % MCV (79.0-92.2) fl MCH (25.7-32.2) pg MCHC (32.2-35.5) g/dl RDW Std Deviation (35.1-43.9) fL Plt Count (163-337) K/mm3 MPV (9.4-12.3) fl Neut % (Auto) (34.0-67.9) % Lymph % (Auto) (21.8-53.1) % Lake % (Auto) (5.3-12.2) % Eos % (Auto) (0.8-7.0) Baso % (Auto) (0.1-1.2) % Neut # (Auto) (1.78-5.38) K/mm3 Lymph # (Auto) (1.32-3.57) K/mm3 [place] # (Auto) (0.30-0.82) K/mm3 Eos # (Auto) (0.04-0.54) K/mm3 Baso # (Auto) (0.01-0.08) K/mm3 Manual Slide Review D-Dimer, Quantitative (0.19-0.50) mg/L Sodium (136-145) mEq/L Potassium (3.5-5.1) mEq/L Chloride (98-107) mEq/L Carbon Dioxide (21-32) mEq/L Anion Gap (5-15) BUN (7-18) mg/dL Creatinine (0.7-1.3) mg/dL Est Cr Clr Drug Dosing mL/min Estimated GFR (MDRD) (>60) mL/min BUN/Creatinine Ratio (14-18) Glucose (70-99) mg/dL POC Glucose 277 H 233 H (70-99) mg/dL Calcium (8.5-10.1) mg/dL Phosphorus (2.6-4.7) mg/dL Magnesium (1.8-2.4) mg/dL Total Bilirubin (0.2-1.0) mg/dL AST (15-37) U/L ALT (16-63) U/L Alkaline Phosphatase (46-116) U/L C-Reactive Protein (<1.0) mg/dL Total Protein (6.4-8.2) g/dl Albumin (3.4-5.0) g/dl Globulin gm/dL Albumin/Globulin Ratio (1-2) Urine Color Yellow (Yellow) Urine Appearance Clear (Clear) Urine pH 7.0 (5.0-8.0) Ur Specific [place] 1.020 (1.005-1.030) Urine Protein Negative (Negative) Urine Glucose (UA) Trace H (Negative) Urine Ketones 1+ H (Negative) Urine Occult Blood Negative (Negative) Urine Nitrite Negative (Negative) Urine Bilirubin Negative (Negative) Urine Urobilinogen 1.0 (0.2-1.0) Ur Leukocyte Esterase Negative (Negative) Ur Random Creatinine (30.0-125.0) mg/dL Ur Random Microalbumin (1.3-20.0) mg/L Microalb/Creat Ratio 03/25/21 03/25/21 03/25/21 Range/Units 05:33 05:33 05:33 WBC 7.83 (4.23-9.07) K/mm3 RBC 5.10 (4.63-6.08) M/mm3 Hgb 14.8 (13.7-17.5) gm/dl Hct 44.9 (40.1-51.0) % MCV 88.0 (79.0-92.2) fl MCH 29.0 (25.7-32.2) pg MCHC 33.0 (32.2-35.5) g/dl RDW Std Deviation 40.6 (35.1-43.9) fL Plt Count 263 (163-337) K/mm3 MPV 11.0 (9.4-12.3) fl Neut % (Auto) 68.7 H (34.0-67.9) % Lymph % (Auto) 13.9 L (21.8-53.1) % Lake % (Auto) 15.8 H (5.3-12.2) % Eos % (Auto) 0.1 L (0.8-7.0) Baso % (Auto) 0.1 (0.1-1.2) % Neut # (Auto) 5.37 (1.78-5.38) K/mm3 Lymph # (Auto) 1.09 L (1.32-3.57) K/mm3 [place] # (Auto) 1.24 H (0.30-0.82) K/mm3 Eos # (Auto) 0.01 L (0.04-0.54) K/mm3 Baso # (Auto) 0.01 (0.01-0.08) K/mm3 Manual Slide Review D-Dimer, Quantitative 0.26 (0.19-0.50) mg/L Sodium 138 (136-145) mEq/L Potassium 3.8 (3.5-5.1) mEq/L Chloride 106 (98-107) mEq/L Carbon Dioxide 24 (21-32) mEq/L Anion Gap 11.8 (5-15) BUN 22 H (7-18) mg/dL Creatinine 0.9 (0.7-1.3) mg/dL Est Cr Clr Drug Dosing 120.02 mL/min Estimated GFR (MDRD) > 60 (>60) mL/min BUN/Creatinine Ratio 24.4 H (14-18) Glucose 131 H (70-99) mg/dL POC Glucose (70-99) mg/dL Calcium 8.1 L (8.5-10.1) mg/dL Phosphorus 4.2 (2.6-4.7) mg/dL Magnesium 2.0 (1.8-2.4) mg/dL Total Bilirubin 0.6 (0.2-1.0) mg/dL AST 53 H (15-37) U/L ALT 111 H (16-63) U/L Alkaline Phosphatase 41 L (46-116) U/L C-Reactive Protein 1.3 H* (<1.0) mg/dL Total Protein 6.0 L (6.4-8.2) g/dl Albumin 2.4 L (3.4-5.0) g/dl Globulin 3.6 gm/dL Albumin/Globulin Ratio 0.7 L (1-2) Urine Color (Yellow) Urine Appearance (Clear) Urine pH (5.0-8.0) Ur Specific [place] (1.005-1.030) Urine Protein (Negative) Urine Glucose (UA) (Negative) Urine Ketones (Negative) Urine Occult Blood (Negative) Urine Nitrite (Negative) Urine Bilirubin (Negative) Urine Urobilinogen (0.2-1.0) Ur Leukocyte Esterase (Negative) Ur Random Creatinine (30.0-125.0) mg/dL Ur Random Microalbumin (1.3-20.0) mg/L Microalb/Creat Ratio 03/25/21 Range/Units 06:36 WBC (4.23-9.07) K/mm3 RBC (4.63-6.08) M/mm3 Hgb (13.7-17.5) gm/dl Hct (40.1-51.0) % MCV (79.0-92.2) fl MCH (25.7-32.2) pg MCHC (32.2-35.5) g/dl RDW Std Deviation (35.1-43.9) fL Plt Count (163-337) K/mm3 MPV (9.4-12.3) fl Neut % (Auto) (34.0-67.9) % Lymph % (Auto) (21.8-53.1) % Lake % (Auto) (5.3-12.2) % Eos % (Auto) (0.8-7.0) Baso % (Auto) (0.1-1.2) % Neut # (Auto) (1.78-5.38) K/mm3 Lymph # (Auto) (1.32-3.57) K/mm3 Lake # (Auto) (0.30-0.82) K/mm3 Eos # (Auto) (0.04-0.54) K/mm3 Baso # (Auto) (0.01-0.08) K/mm3 Manual Slide Review D-Dimer, Quantitative (0.19-0.50) mg/L Sodium (136-145) mEq/L Potassium (3.5-5.1) mEq/L Chloride (98-107) mEq/L Carbon Dioxide (21-32) mEq/L Anion Gap (5-15) BUN (7-18) mg/dL Creatinine (0.7-1.3) mg/dL Est Cr Clr Drug Dosing mL/min Estimated GFR (MDRD) (>60) mL/min BUN/Creatinine Ratio (14-18) Glucose (70-99) mg/dL POC Glucose 122 H (70-99) mg/dL Calcium (8.5-10.1) mg/dL Phosphorus (2.6-4.7) mg/dL Magnesium (1.8-2.4) mg/dL Total Bilirubin (0.2-1.0) mg/dL AST (15-37) U/L ALT (16-63) U/L Alkaline Phosphatase (46-116) U/L C-Reactive Protein (<1.0) mg/dL Total Protein (6.4-8.2) g/dl Albumin (3.4-5.0) g/dl Globulin gm/dL Albumin/Globulin Ratio (1-2) Urine Color (Yellow) Urine Appearance (Clear) Urine pH (5.0-8.0) Ur Specific [place] (1.005-1.030) Urine Protein (Negative) Urine Glucose (UA) (Negative) Urine Ketones (Negative) Urine Occult Blood (Negative) Urine Nitrite (Negative) Urine Bilirubin (Negative) Urine Urobilinogen (0.2-1.0) Ur Leukocyte Esterase (Negative) Ur Random Creatinine (30.0-125.0) mg/dL Ur Random Microalbumin (1.3-20.0) mg/L Microalb/Creat Ratio Med Orders - Current: Current Medications Acetaminophen (Acetaminophen 325 Mg/10.15 Ml Ml) 650 mg PO Q4H PRN PRN Reason: Pain (mild 1-3) or fever > 101 Albuterol (Albuterol 6.7 Gm Inhaler) 0 gm INH Q4H PRN PRN Reason: Shortness of Breath Last Admin: 03/24/21 22:30 Dose: 2 puff Documented by: Albuterol/Ipratropium (Albuterol/Ipratropium 3.0-0.5 Mg/3 Ml Neb Soln) 3 ml NEB Q4H PRN PRN Reason: Shortness Of Breath/wheezing Last Admin: 03/22/21 20:56 Dose: 3 ml Documented by: Dexamethasone (Dexamethasone 4 Mg/Ml Sdv) 6 mg IVPUSH DAILY [facility] Stop: 03/30/21 09:01 Last Admin: 03/24/21 08:10 Dose: 6 mg Documented by: Enoxaparin Sodium (Enoxaparin 40 Mg/0.4 Ml Syringe) 40 mg SUBCUT BID [facility] Last Admin: 03/24/21 21:17 Dose: 40 mg Documented by: Guaifenesin (Guaifenesin 100 Mg/5 Ml Soln 10 Ml Ud Cup) 200 mg PO Q4H [facility] Last Admin: 03/25/21 03:09 Dose: 200 mg Documented by: Remdesivir 100 mg/ Sodium (Chloride) 100 mls @ 100 mls/hr IV Q24H [facility] Stop: 03/25/21 20:59 Last Admin: 03/24/21 21:12 Dose: 100 mls/hr Documented by: Ibuprofen (Ibuprofen Susp 100 Mg/5 Ml 5 Ml Ud Cup) 600 mg PO Q6H PRN PRN Reason: Pain (moderate 4-6) Insulin Glargine (Insulin Glarg,Human.Rec.Analog 100 Unit/Ml) 10 unit SUBCUT BIDAC [facility] Last Admin: 03/24/21 17:30 Dose: 10 units Documented by: Insulin Human Lispro (Insulin Lispro 100 Unit/Ml 10 Ml Vial) 0 unit SUBCUT QID ACANDBED [facility]; Protocol Last Admin: 03/24/21 21:53 Dose: 4 units Documented by: Ondansetron HCl (Ondansetron 4 Mg/2 Ml Sdv) 4 mg IV Q6H PRN PRN Reason: Nausea/Vomiting Sodium Chloride (Sodium Chloride 0.9% 10 Ml Syringe) 10 ml FLUSH ASDIRECTED PRN PRN Reason: Keep Vein Open Discontinued Medications Acetaminophen (Acetaminophen 325 Mg Tab) 650 mg PO Q4H PRN PRN Reason: Pain (Mild 1-3)/fever Acetaminophen (Acetaminophen 325 Mg Tab) 650 mg PO Q4H PRN PRN Reason: Fever Greater Than 101 Acetaminophen (Acetaminophen 325 Mg/10.15 Ml Ml) 650 mg PO Q4H PRN PRN Reason: Fever Dexamethasone (Dexamethasone 10 Mg/Ml Sdv) 6 mg IVPUSH ONETIME ONE Stop: 03/21/21 16:44 Last Admin: 03/21/21 18:08 Dose: 6 mg Documented by: Dexamethasone (Dexamethasone 4 Mg Tab) 6 mg PO DAILY [facility] Stop: 03/31/21 09:01 Guaifenesin (Guaifenesin 600 Mg Tab.Er) 600 mg PO BID [facility] Last Admin: 03/24/21 13:42 Dose: Not Given Documented by: Remdesivir 200 mg/ Sodium (Chloride) 250 mls @ 250 mls/hr IV ONETIME ONE Stop: 03/21/21 16:44 Last Admin: 03/21/21 18:08 Dose: 250 mls/hr Documented by: Ibuprofen (Ibuprofen 600 Mg Tab) 600 mg PO Q6H PRN PRN Reason: Pain (moderate 4-6) Temazepam (Temazepam 7.5 Mg Cap) 7.5 mg PO BEDTIME PRN PRN Reason: Sleep - Exam Quality Assessment: Supplemental Oxygen (1L), DVT Prophylaxis. No: Urine Catheter General: Alert, Oriented, Cooperative, No Acute Distress HEENT: Pupils Equal, Pupils Reactive, Mucous Membr. Moist/[place] Neck: Supple, Trachea Midline Lungs: Normal Respiratory Effort, Decreased Breath Sounds (improving ), Crackles Cardiovascular: Regular Rate, Regular Rhythm GI/Abdominal Exam: Normal Bowel Sounds, Soft, Non-Tender, No Distention (Male) Exam: Deferred Back Exam: Normal Inspection, Full Range of Motion Extremities: Normal Inspection, Normal Range of Motion, Non-Tender, No Pedal Edema, Normal Capillary Refill Peripheral Pulses: 2+: Radial (L), Radial (R), Dorsalis Pedis (L), Dorsalis Pedis (R) Skin: Warm, Dry, Intact Neurological: No New Focal Deficit Psy/Mental Status: Alert, Normal Affect, Normal Mood - Patient Data Lab Results Last 24 hrs: Laboratory Results - last 24 hr 03/24/21 03/24/21 03/24/21 Range/Units 05:16 11:18 12:28 WBC (4.23-9.07) K/mm3 RBC (4.63-6.08) M/mm3 Hgb (13.7-17.5) gm/dl Hct (40.1-51.0) % MCV (79.0-92.2) fl MCH (25.7-32.2) pg MCHC (32.2-35.5) g/dl RDW Std Deviation (35.1-43.9) fL Plt Count (163-337) K/mm3 MPV (9.4-12.3) fl Neut % (Auto) (34.0-67.9) % Lymph % (Auto) (21.8-53.1) % Lake % (Auto) (5.3-12.2) % Eos % (Auto) (0.8-7.0) Baso % (Auto) (0.1-1.2) % Neut # (Auto) (1.78-5.38) K/mm3 Lymph # (Auto) (1.32-3.57) K/mm3 [place] # (Auto) (0.30-0.82) K/mm3 Eos # (Auto) (0.04-0.54) K/mm3 Baso # (Auto) (0.01-0.08) K/mm3 Manual Slide Review Normal smear D-Dimer, Quantitative (0.19-0.50) mg/L Sodium (136-145) mEq/L Potassium (3.5-5.1) mEq/L Chloride (98-107) mEq/L Carbon Dioxide (21-32) mEq/L Anion Gap (5-15) BUN (7-18) mg/dL Creatinine (0.7-1.3) mg/dL Est Cr Clr Drug Dosing mL/min Estimated GFR (MDRD) (>60) mL/min BUN/Creatinine Ratio (14-18) Glucose (70-99) mg/dL POC Glucose 216 H (70-99) mg/dL Calcium (8.5-10.1) mg/dL Phosphorus (2.6-4.7) mg/dL Magnesium (1.8-2.4) mg/dL Total Bilirubin (0.2-1.0) mg/dL AST (15-37) U/L ALT (16-63) U/L Alkaline Phosphatase (46-116) U/L C-Reactive Protein (<1.0) mg/dL Total Protein (6.4-8.2) g/dl Albumin (3.4-5.0) g/dl Globulin gm/dL Albumin/Globulin Ratio (1-2) Urine Color (Yellow) Urine Appearance (Clear) Urine pH (5.0-8.0) Ur Specific [place] (1.005-1.030) Urine Protein (Negative) Urine Glucose (UA) (Negative) Urine Ketones (Negative) Urine Occult Blood (Negative) Urine Nitrite (Negative) Urine Bilirubin (Negative) Urine Urobilinogen (0.2-1.0) Ur Leukocyte Esterase (Negative) Ur Random Creatinine 91.2 (30.0-125.0) mg/dL Ur Random Microalbumin < 1.3 L (1.3-20.0) mg/L Microalb/Creat Ratio TNP 03/24/21 03/24/21 03/24/21 Range/Units 13:58 17:10 21:16 WBC (4.23-9.07) K/mm3 RBC (4.63-6.08) M/mm3 Hgb (13.7-17.5) gm/dl Hct (40.1-51.0) % MCV (79.0-92.2) fl MCH (25.7-32.2) pg MCHC (32.2-35.5) g/dl RDW Std Deviation (35.1-43.9) fL Plt Count (163-337) K/mm3 MPV (9.4-12.3) fl Neut % (Auto) (34.0-67.9) % Lymph % (Auto) (21.8-53.1) % Lake % (Auto) (5.3-12.2) % Eos % (Auto) (0.8-7.0) Baso % (Auto) (0.1-1.2) % Neut # (Auto) (1.78-5.38) K/mm3 Lymph # (Auto) (1.32-3.57) K/mm3 [place] # (Auto) (0.30-0.82) K/mm3 Eos # (Auto) (0.04-0.54) K/mm3 Baso # (Auto) (0.01-0.08) K/mm3 Manual Slide Review D-Dimer, Quantitative (0.19-0.50) mg/L Sodium (136-145) mEq/L Potassium (3.5-5.1) mEq/L Chloride (98-107) mEq/L Carbon Dioxide (21-32) mEq/L Anion Gap (5-15) BUN (7-18) mg/dL Creatinine (0.7-1.3) mg/dL Est Cr Clr Drug Dosing mL/min Estimated GFR (MDRD) (>60) mL/min BUN/Creatinine Ratio (14-18) Glucose (70-99) mg/dL POC Glucose 277 H 233 H (70-99) mg/dL Calcium (8.5-10.1) mg/dL Phosphorus (2.6-4.7) mg/dL Magnesium (1.8-2.4) mg/dL Total Bilirubin (0.2-1.0) mg/dL AST (15-37) U/L ALT (16-63) U/L Alkaline Phosphatase (46-116) U/L C-Reactive Protein (<1.0) mg/dL Total Protein (6.4-8.2) g/dl Albumin (3.4-5.0) g/dl Globulin gm/dL Albumin/Globulin Ratio (1-2) Urine Color Yellow (Yellow) Urine Appearance Clear (Clear) Urine pH 7.0 (5.0-8.0) Ur Specific [place] 1.020 (1.005-1.030) Urine Protein Negative (Negative) Urine Glucose (UA) Trace H (Negative) Urine Ketones 1+ H (Negative) Urine Occult Blood Negative (Negative) Urine Nitrite Negative (Negative) Urine Bilirubin Negative (Negative) Urine Urobilinogen 1.0 (0.2-1.0) Ur Leukocyte Esterase Negative (Negative) Ur Random Creatinine (30.0-125.0) mg/dL Ur Random Microalbumin (1.3-20.0) mg/L Microalb/Creat Ratio 03/25/21 03/25/21 03/25/21 Range/Units 05:33 05:33 05:33 WBC 7.83 (4.23-9.07) K/mm3 RBC 5.10 (4.63-6.08) M/mm3 Hgb 14.8 (13.7-17.5) gm/dl Hct 44.9 (40.1-51.0) % MCV 88.0 (79.0-92.2) fl MCH 29.0 (25.7-32.2) pg MCHC 33.0 (32.2-35.5) g/dl RDW Std Deviation 40.6 (35.1-43.9) fL Plt Count 263 (163-337) K/mm3 MPV 11.0 (9.4-12.3) fl Neut % (Auto) 68.7 H (34.0-67.9) % Lymph % (Auto) 13.9 L (21.8-53.1) % Lake % (Auto) 15.8 H (5.3-12.2) % Eos % (Auto) 0.1 L (0.8-7.0) Baso % (Auto) 0.1 (0.1-1.2) % Neut # (Auto) 5.37 (1.78-5.38) K/mm3 Lymph # (Auto) 1.09 L (1.32-3.57) K/mm3 [place] # (Auto) 1.24 H (0.30-0.82) K/mm3 Eos # (Auto) 0.01 L (0.04-0.54) K/mm3 Baso # (Auto) 0.01 (0.01-0.08) K/mm3 Manual Slide Review D-Dimer, Quantitative 0.26 (0.19-0.50) mg/L Sodium 138 (136-145) mEq/L Potassium 3.8 (3.5-5.1) mEq/L Chloride 106 (98-107) mEq/L Carbon Dioxide 24 (21-32) mEq/L Anion Gap 11.8 (5-15) BUN 22 H (7-18) mg/dL Creatinine 0.9 (0.7-1.3) mg/dL Est Cr Clr Drug Dosing 120.02 mL/min Estimated GFR (MDRD) > 60 (>60) mL/min BUN/Creatinine Ratio 24.4 H (14-18) Glucose 131 H (70-99) mg/dL POC Glucose (70-99) mg/dL Calcium 8.1 L (8.5-10.1) mg/dL Phosphorus 4.2 (2.6-4.7) mg/dL Magnesium 2.0 (1.8-2.4) mg/dL Total Bilirubin 0.6 (0.2-1.0) mg/dL AST 53 H (15-37) U/L ALT 111 H (16-63) U/L Alkaline Phosphatase 41 L (46-116) U/L C-Reactive Protein 1.3 H* (<1.0) mg/dL Total Protein 6.0 L (6.4-8.2) g/dl Albumin 2.4 L (3.4-5.0) g/dl Globulin 3.6 gm/dL Albumin/Globulin Ratio 0.7 L (1-2) Urine Color (Yellow) Urine Appearance (Clear) Urine pH (5.0-8.0) Ur Specific [place] (1.005-1.030) Urine Protein (Negative) Urine Glucose (UA) (Negative) Urine Ketones (Negative) Urine Occult Blood (Negative) Urine Nitrite (Negative) Urine Bilirubin (Negative) Urine Urobilinogen (0.2-1.0) Ur Leukocyte Esterase (Negative) Ur Random Creatinine (30.0-125.0) mg/dL Ur Random Microalbumin (1.3-20.0) mg/L Microalb/Creat Ratio 03/25/ Range/Units 06:36 WBC (4.23-9.07) K/mm3 RBC (4.63-6.08) M/mm3 Hgb (13.7-17.5) gm/dl Hct (40.1-51.0) % MCV (79.0-92.2) fl MCH (25.7-32.2) pg MCHC (32.2-35.5) g/dl RDW Std Deviation (35.1-43.9) fL Plt Count (163-337) K/mm3 MPV (9.4-12.3) fl Neut % (Auto) (34.0-67.9) % Lymph % (Auto) (21.8-53.1) % Lake % (Auto) (5.3-12.2) % Eos % (Auto) (0.8-7.0) Baso % (Auto) (0.1-1.2) % Neut # (Auto) (1.78-5.38) K/mm3 Lymph # (Auto) (1.32-3.57) K/mm3 [place] # (Auto) (0.30-0.82) K/mm3 Eos # (Auto) (0.04-0.54) K/mm3 Baso # (Auto) (0.01-0.08) K/mm3 Manual Slide Review D-Dimer, Quantitative (0.19-0.50) mg/L Sodium (136-145) mEq/L Potassium (3.5-5.1) mEq/L Chloride (98-107) mEq/L Carbon Dioxide (21-32) mEq/L Anion Gap (5-15) BUN (7-18) mg/dL Creatinine (0.7-1.3) mg/dL Est Cr Clr Drug Dosing mL/min Estimated GFR (MDRD) (>60) mL/min BUN/Creatinine Ratio (14-18) Glucose (70-99) mg/dL POC Glucose 122 H (70-99) mg/dL Calcium (8.5-10.1) mg/dL Phosphorus (2.6-4.7) mg/dL Magnesium (1.8-2.4) mg/dL Total Bilirubin (0.2-1.0) mg/dL AST (15-37) U/L ALT (16-63) U/L Alkaline Phosphatase (46-116) U/L C-Reactive Protein (<1.0) mg/dL Total Protein (6.4-8.2) g/dl Albumin (3.4-5.0) g/dl Globulin gm/dL Albumin/Globulin Ratio (1-2) Urine Color (Yellow) Urine Appearance (Clear) Urine pH (5.0-8.0) Ur Specific [place] (1.005-1.030) Urine Protein (Negative) Urine Glucose (UA) (Negative) Urine Ketones (Negative) Urine Occult Blood (Negative) Urine Nitrite (Negative) Urine Bilirubin (Negative) Urine Urobilinogen (0.2-1.0) Ur Leukocyte Esterase (Negative) Ur Random Creatinine (30.0-125.0) mg/dL Ur Random Microalbumin (1.3-20.0) mg/L Microalb/Creat Ratio Result Diagrams: 03/25/21 05:33 03/25/21 05:33 Sepsis Event Note - Evaluation Sepsis Screening Result: No Definite Risk - Focused Exam Vital Signs: Vital Signs Temp Pulse Resp BP Pulse Ox Pulse Ox 03/25/21 05:38 91 L 03/25/21 03:10 97.7 F 75 24 H 126/93 H 94 L 03/24/21 22:30 95 03/24/21 21:07 98.2 F 64 24 H 105/65 97 - Problem List & Annotations (1) New onset type 2 diabetes mellitus SNOMED Code(s): 12162769 Code(s): E11.9 - TYPE 2 DIABETES MELLITUS WITHOUT COMPLICATIONS Status: Acute Priority: High Current Visit: Yes (2) COVID-19 SNOMED Code(s): 742269880 Code(s): U07.1 - COVID-19 Status: Acute Priority: High Current Visit: Yes (3) Elevated BP without diagnosis of hypertension SNOMED Code(s): 410674885 Code(s): R03.0 - ELEVATED BLOOD-PRESSURE READING, W/O DIAGNOSIS OF HTN Sta tus: Acute Current Visit: Yes (4) Hypoxia SNOMED Code(s): 672970374 Code(s): R09.02 - HYPOXEMIA Status: Acute Priority: High Current Visit: Yes (5) Obesity SNOMED Code(s): 368923133, 965559420 Code(s): E66.9 - OBESITY, UNSPECIFIED Status: Chronic Priority: Medium Current Visit: Yes Qualifiers: Obesity type: unspecified obesity type Obesity classification: adult class 2 (BMI 35 - 39.9) Serious obesity comorbidity presence: with serious comorbidity Body mass index: BMI 38.0-38.9 Qualified Code(s): E66.01 - Morbid (severe) obesity due to excess calories; Z68.38 - Body mass index [BMI] 38.0-38.9, adult (6) Pneumonia due to COVID-19 virus SNOMED Code(s): 864979227697938044 Code(s): U07.1 - COVID-19; J12.82 - PNEUMONIA DUE TO CORONAVIRUS DISEASE 2019 Status: Acute Priority: High Current Visit: Yes (7) Transaminitis SNOMED Code(s): 009138255, 339778587 Code(s): R74.01 - ELEVATION OF LEVELS OF LIVER TRANSAMINASE LEVELS Status: Acute Priority: Medium Current Visit: Yes - Problem List Review Problem List Initiated/Reviewed/Updated: Yes - My Orders Last 24 Hours: My Active Orders 03/24/21 14:00 guaiFENesin [Robitussin] 200 mg PO Q4H - Assessment Assessment:: This is a 31-year-old male admitted to the hospital for treatment of his COVID- 19 pneumonia and incidentally found to be a diabetic due to elevated blood sugars and A1c. He did speak with our dietitian and photo finisher. Unfortunately patient is very against taking p.o. 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 Overall labs have been very stable. CBC shows WBC of 7.3. Hemoglobin 14.8. D-dimer 0.26. Sodium 138. Potassium 3.8. Chloride 106. Carbon oxide 24. Anion gap 11.8. BUN is 22. Creatinine 0.9. GFR greater than 60. Glucose has been 1 22-2 33. Magnesium 2.0. AST is 53, ALT 111, alkaline phosphatase 41. CRP is 1.3. Albumin is 2.4. UA was obtained yesterday and shows trace glucose and 1+ ketones however protein was negative, urine random creatinine was 91.2, urine random microalbumin was less than 1.3, and microalbumin/creatinine ratio was unable to be performed. Patient was started on guaifenesin yesterday. He has been reporting a dry and congested nose so we will start him on as needed sodium chloride nasal mist. He will receive his last dose of remdesivir today. Plan will be to discharge the patient tomorrow pending continued improvement. - Plan Plan:: 31-year-old obese male not vaccinated against COVID-19 admitted with Covid pneumonia. Elevated A1c and blood sugars noted. Diagnosed with diabetes mellitus. COVID-19 pneumonia with hypoxemia * Requiring 1 liters per minute nasal cannula * Symptoms for started on March 15 * Received remdesivir and dexamethasone in the emergency department * Continuing on remdesivir and dexamethasone on the floor - last dose of remdesivir today * No history of smoking. * Labs stable. CRP decreased to 1.3 today Transaminitisimproving * AST 60-->47-->53, ALT 81-->80-->111 * Normal total bilirubin * albumin 2.5-->2.5-->2.4 * Likely multifactorial including fatty liver, diabetes, and COVID-19 * Will need to follow New onset diabetes * glucose in the low 200s * Patient denies diabetes * Hemoglobin A1c is 7.2 making it likely he has diabetes. 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 Elevated blood pressure without diagnosis of hypertensionresolved * Systolic blood pressure 160 on presentation to the emergency department * Blood pressures normal * No history of hypertension Plan * Admit to medical floor * FiO2 to keep SPO2 between 88 and 94% * RT consult, Acapella, incentive spirometry, albuterol MDI as needed, DuoNeb every 4 hours as needed * Continue remdesivir and dexamethasone * Continue Mucinex BID * Diabetic education and dietitian consulted * Continue Lantus 10 units twice daily * Check urine for microalbumin creatinine ratio/UA * Continue sliding scale insulin, but will need prandial insulin * Likely benefit from going home on Metformin, patient has a phobia to pills * Follow blood pressure * Follow CBC, CMP, magnesium, phosphorus, CRP, D-dimer * VTE prophylaxis with Lovenox * CODE STATUS: Full code <Kristine Doty - Last Filed: 03/25/21 14:47> - Patient Data Vitals - Most Recent: Last Vital Signs Temp 97.5 F 03/25/21 14:03 Pulse 78 03/25/21 14:03 Resp 16 03/25/21 14:03 BP 113/47 L 03/25/21 14:03 Pulse Ox 94 L 03/25/21 14:03 I&O - Last 24 Hours: Intake & Output 03/24/21 03/25/21 03/25/21 22:59 06:59 14:59 Intake Total 2060 900 Output Total 1500 400 Balance 560 500 Lab Results Last 24 Hours: Laboratory Results - last 24 hr 03/24/21 03/24/21 03/24/21 Range/Units 12:28 17:10 21:16 WBC (4.23-9.07) K/mm3 RBC (4.63-6.08) M/mm3 Hgb (13.7-17.5) gm/dl Hct (40.1-51.0) % MCV (79.0-92.2) fl MCH (25.7-32.2) pg MCHC (32.2-35.5) g/dl RDW Std Deviation (35.1-43.9) fL Plt Count (163-337) K/mm3 MPV (9.4-12.3) fl Neut % (Auto) (34.0-67.9) % Lymph % (Auto) (21.8-53.1) % Lake % (Auto) (5.3-12.2) % Eos % (Auto) (0.8-7.0) Baso % (Auto) (0.1-1.2) % Neut # (Auto) (1.78-5.38) K/mm3 Lymph # (Auto) (1.32-3.57) K/mm3 Lake # (Auto) (0.30-0.82) K/mm3 Eos # (Auto) (0.04-0.54) K/mm3 Baso # (Auto) (0.01-0.08) K/mm3 Manual Slide Review D-Dimer, Quantitative (0.19-0.50) mg/L Sodium (136-145) mEq/L Potassium (3.5-5.1) mEq/L Chloride (98-107) mEq/L Carbon Dioxide (21-32) mEq/L Anion Gap (5-15) BUN (7-18) mg/dL Creatinine (0.7-1.3) mg/dL Est Cr Clr Drug Dosing mL/min Estimated GFR (MDRD) (>60) mL/min BUN/Creatinine Ratio (14-18) Glucose (70-99) mg/dL POC Glucose 277 H 233 H (70-99) mg/dL Calcium (8.5-10.1) mg/dL Phosphorus (2.6-4.7) mg/dL Magnesium (1.8-2.4) mg/dL Total Bilirubin (0.2-1.0) mg/dL AST (15-37) U/L ALT (16-63) U/L Alkaline Phosphatase (46-116) U/L C-Reactive Protein (<1.0) mg/dL Total Protein (6.4-8.2) g/dl Albumin (3.4-5.0) g/dl Globulin gm/dL Albumin/Globulin Ratio (1-2) Ur Random Creatinine 91.2 (30.0-125.0) mg/dL Ur Random Microalbumin < 1.3 L (1.3-20.0) mg/L Microalb/Creat Ratio TNP 03/25/21 03/25/21 03/25/21 Range/Units 05:33 05:33 05:33 WBC 7.83 (4.23-9.07) K/mm3 RBC 5.10 (4.63-6.08) M/mm3 Hgb 14.8 (13.7-17.5) gm/dl Hct 44.9 (40.1-51.0) % MCV 88.0 (79.0-92.2) fl MCH 29.0 (25.7-32.2) pg MCHC 33.0 (32.2-35.5) g/dl RDW Std Deviation 40.6 (35.1-43.9) fL Plt Count 263 (163-337) K/mm3 MPV 11.0 (9.4-12.3) fl Neut % (Auto) 68.7 H (34.0-67.9) % Lymph % (Auto) 13.9 L (21.8-53.1) % Lake % (Auto) 15.8 H (5.3-12.2) % Eos % (Auto) 0.1 L (0.8-7.0) Baso % (Auto) 0.1 (0.1-1.2) % Neut # (Auto) 5.37 (1.78-5.38) K/mm3 Lymph # (Auto) 1.09 L (1.32-3.57) K/mm3 Lake # (Auto) 1.24 H (0.30-0.82) K/mm3 Eos # (Auto) 0.01 L (0.04-0.54) K/mm3 Baso # (Auto) 0.01 (0.01-0.08) K/mm3 Manual Slide Review Abnormal smear D-Dimer, Quantitative 0.26 (0.19-0.50) mg/L Sodium 138 (136-145) mEq/L Potassium 3.8 (3.5-5.1) mEq/L Chloride 106 (98-107) mEq/L Carbon Dioxide 24 (21-32) mEq/L Anion Gap 11.8 (5-15) BUN 22 H (7-18) mg/dL Creatinine 0.9 (0.7-1.3) mg/dL Est Cr Clr Drug Dosing 120.02 mL/min Estimated GFR (MDRD) > 60 (>60) mL/min BUN/Creatinine Ratio 24.4 H (14-18) Glucose 131 H (70-99) mg/dL POC Glucose (70-99) mg/dL Calcium 8.1 L (8.5-10.1) mg/dL Phosphorus 4.2 (2.6-4.7) mg/dL Magnesium 2.0 (1.8-2.4) mg/dL Total Bilirubin 0.6 (0.2-1.0) mg/dL AST 53 H (15-37) U/L ALT 111 H (16-63) U/L Alkaline Phosphatase 41 L (46-116) U/L C-Reactive Protein 1.3 H* (<1.0) mg/dL Total Protein 6.0 L (6.4-8.2) g/dl Albumin 2.4 L (3.4-5.0) g/dl Globulin 3.6 gm/dL Albumin/Globulin Ratio 0.7 L (1-2) Ur Random Creatinine (30.0-125.0) mg/dL Ur Random Microalbumin (1.3-20.0) mg/L Microalb/Creat Ratio 03/25/21 03/25/21 Range/Units 06:36 10:57 WBC (4.23-9.07) K/mm3 RBC (4.63-6.08) M/mm3 Hgb (13.7-17.5) gm/dl Hct (40.1-51.0) % MCV (79.0-92.2) fl MCH (25.7-32.2) pg MCHC (32.2-35.5) g/dl RDW Std Deviation (35.1-43.9) fL Plt Count (163-337) K/mm3 MPV (9.4-12.3) fl Neut % (Auto) (34.0-67.9) % Lymph % (Auto) (21.8-53.1) % Lake % (Auto) (5.3-12.2) % Eos % (Auto) (0.8-7.0) Baso % (Auto) (0.1-1.2) % Neut # (Auto) (1.78-5.38) K/mm3 Lymph # (Auto) (1.32-3.57) K/mm3 Lake # (Auto) (0.30-0.82) K/mm3 Eos # (Auto) (0.04-0.54) K/mm3 Baso # (Auto) (0.01-0.08) K/mm3 Manual Slide Review D-Dimer, Quantitative (0.19-0.50) mg/L Sodium (136-145) mEq/L Potassium (3.5-5.1) mEq/L Chloride (98-107) mEq/L Carbon Dioxide (21-32) mEq/L Anion Gap (5-15) BUN (7-18) mg/dL Creatinine (0.7-1.3) mg/dL Est Cr Clr Drug Dosing mL/min Estimated GFR (MDRD) (>60) mL/min BUN/Creatinine Ratio (14-18) Glucose (70-99) mg/dL POC Glucose 122 H 181 H (70-99) mg/dL Calcium (8.5-10.1) mg/dL Phosphorus (2.6-4.7) mg/dL Magnesium (1.8-2.4) mg/dL Total Bilirubin (0.2-1.0) mg/dL AST (15-37) U/L ALT (16-63) U/L Alkaline Phosphatase (46-116) U/L C-Reactive Protein (<1.0) mg/dL Total Protein (6.4-8.2) g/dl Albumin (3.4-5.0) g/dl Globulin gm/dL Albumin/Globulin Ratio (1-2) Ur Random Creatinine (30.0-125.0) mg/dL Ur Random Microalbumin (1.3-20.0) mg/L Microalb/Creat Ratio Med Orders - Current: Current Medications Acetaminophen (Acetaminophen 325 Mg/10.15 Ml Ml) 650 mg PO Q4H PRN PRN Reason: Pain (mild 1-3) or fever > 101 Albuterol (Albuterol 6.7 Gm Inhaler) 0 gm INH Q4H PRN PRN Reason: Shortness of Breath Last Admin: 03/25/21 10:27 Dose: 2 puff Documented by: Albuterol/Ipratropium (Albuterol/Ipratropium 3.0-0.5 Mg/3 Ml Neb Soln) 3 ml NEB Q4H PRN PRN Reason: Shortness Of Breath/wheezing Last Admin: 03/22/21 20:56 Dose: 3 ml Documented by: Dexamethasone (Dexamethasone 4 Mg/Ml Sdv) 6 mg IVPUSH DAILY [facility] Stop: 03/30/21 09:01 Last Admin: 03/25/21 08:57 Dose: 6 mg Documented by: Enoxaparin Sodium (Enoxaparin 40 Mg/0.4 Ml Syringe) 40 mg SUBCUT BID [facility] Last Admin: 03/25/21 08:56 Dose: 40 mg Documented by: Guaifenesin (Guaifenesin 100 Mg/5 Ml Soln 10 Ml Ud Cup) 200 mg PO Q4H [facility] Last Admin: 03/25/21 13:30 Dose: 200 mg Documented by: Remdesivir 100 mg/ Sodium (Chloride) 100 mls @ 100 mls/hr IV Q24H [facility] Stop: 03/25/21 20:59 Last Admin: 03/24/21 21:12 Dose: 100 mls/hr Documented by: Ibuprofen (Ibuprofen Susp 100 Mg/5 Ml 5 Ml Ud Cup) 600 mg PO Q6H PRN PRN Reason: Pain (moderate 4-6) Insulin Glargine (Insulin Glarg,Human.Rec.Analog 100 Unit/Ml) 10 unit SUBCUT BIDAC [facility] Last Admin: 03/25/21 07:00 Dose: 10 units Documented by: Insulin Human Lispro (Insulin Lispro 100 Unit/Ml 10 Ml Vial) 0 unit SUBCUT QIDACANDBED [facility]; Protocol Last Admin: 03/25/21 11:29 Dose: 2 units Documented by: Ondansetron HCl (Ondansetron 4 Mg/2 Ml Sdv) 4 mg IV Q6H PRN PRN Reason: Nausea/Vomiting Sodium Chloride (Sodium Chloride 0.9% 10 Ml Syringe) 10 ml FLUSH ASDIRECTED PRN PRN Reason: Keep Vein Open Sodium Chloride (Sodium Chloride 0.65% Nasal [place] 45 Ml Bottle) 0 ml SONY Q2H PRN PRN Reason: Nasal Dryness Last Admin: 03/25/21 13:30 Dose: 1 spray Documented by: Discontinued Medications Acetaminophen (Acetaminophen 325 Mg Tab) 650 mg PO Q4H PRN PRN Reason: Pain (Mild 1-3)/fever Acetaminophen (Acetaminophen 325 Mg Tab) 650 mg PO Q4H PRN PRN Reason: Fever Greater Than 101 Acetaminophen (Acetaminophen 325 Mg/10.15 Ml Ml) 650 mg PO Q4H PRN PRN Reason: Fever Dexamethasone (Dexamethasone 10 Mg/Ml Sdv) 6 mg IVPUSH ONETIME ONE Stop: 03/21/21 16:44 Last Admin: 03/21/21 18:08 Dose: 6 mg Documented by: Dexamethasone (Dexamethasone 4 Mg Tab) 6 mg PO DAILY [facility] Stop: 03/31/21 09:01 Guaifenesin (Guaifenesin 600 Mg Tab.Er) 600 mg PO BID [facility] Last Admin: 03/24/21 13:42 Dose: Not Given Documented by: Remdesivir 200 mg/ Sodium (Chloride) 250 mls @ 250 mls/hr IV ONETIME ONE Stop: 03/21/21 16:44 Last Admin: 03/21/21 18:08 Dose: 250 mls/hr Documented by: Ibuprofen (Ibuprofen 600 Mg Tab) 600 mg PO Q6H PRN PRN Reason: Pain (moderate 4-6) Temazepam (Temazepam 7.5 Mg Cap) 7.5 mg PO BEDTIME PRN PRN Reason: Sleep - Patient Data Lab Results Last 24 hrs: Laboratory Results - last 24 hr 03/24/21 03/24/21 03/24/21 Range/Units 12:28 17:10 21:16 WBC (4.23-9.07) K/mm3 RBC (4.63-6.08) M/mm3 Hgb (13.7-17.5) gm/dl Hct (40.1-51.0) % MCV (79.0-92.2) fl MCH (25.7-32.2) pg MCHC (32.2-35.5) g/dl RDW Std Deviation (35.1-43.9) fL Plt Count (163-337) K/mm3 MPV (9.4-12.3) fl Neut % (Auto) (34.0-67.9) % Lymph % (Auto) (21.8-53.1) % Lake % (Auto) (5.3-12.2) % Eos % (Auto) (0.8-7.0) Baso % (Auto) (0.1-1.2) % Neut # (Auto) (1.78-5.38) K/mm3 Lymph # (Auto) (1.32-3.57) K/mm3 Lake # (Auto) (0.30-0.82) K/mm3 Eos # (Auto) (0.04-0.54) K/mm3 Baso # (Auto) (0.01-0.08) K/mm3 Manual Slide Review D-Dimer, Quantitative (0.19-0.50) mg/L Sodium (136-145) mEq/L Potassium (3.5-5.1) mEq/L Chloride (98-107) mEq/L Carbon Dioxide (21-32) mEq/L Anion Gap (5-15) BUN (7-18) mg/dL Creatinine (0.7-1.3) mg/dL Est Cr Clr Drug Dosing mL/min Estimated GFR (MDRD) (>60) mL/min BUN/Creatinine Ratio (14-18) Glucose (70-99) mg/dL POC Glucose 277 H 233 H (70-99) mg/dL Calcium (8.5-10.1) mg/dL Phosphorus (2.6-4.7) mg/dL Magnesium (1.8-2.4) mg/dL Total Bilirubin (0.2-1.0) mg/dL AST (15-37) U/L ALT (16-63) U/L Alkaline Phosphatase (46-116) U/L C-Reactive Protein (<1.0) mg/dL Total Protein (6.4-8.2) g/dl Albumin (3.4-5.0) g/dl Globulin gm/dL Albumin/Globulin Ratio (1-2) Ur Random Creatinine 91.2 (30.0-125.0) mg/dL Ur Random Microalbumin < 1.3 L (1.3-20.0) mg/L Microalb/Creat Ratio TNP 03/25/21 03/25/21 03/25/21 Range/Units 05:33 05:33 05:33 WBC 7.83 (4.23-9.07) K/mm3 RBC 5.10 (4.63-6.08) M/mm3 Hgb 14.8 (13.7-17.5) gm/dl Hct 44.9 (40.1-51.0) % MCV 88.0 (79.0-92.2) fl MCH 29.0 (25.7-32.2) pg MCHC 33.0 (32.2-35.5) g/dl RDW Std Deviation 40.6 (35.1-43.9) fL Plt Count 263 (163-337) K/mm3 MPV 11.0 (9.4-12.3) fl Neut % (Auto) 68.7 H (34.0-67.9) % Lymph % (Auto) 13.9 L (21.8-53.1) % Lake % (Auto) 15.8 H (5.3-12.2) % Eos % (Auto) 0.1 L (0.8-7.0) Baso % (Auto) 0.1 (0.1-1.2) % Neut # (Auto) 5.37 (1.78-5.38) K/mm3 Lymph # (Auto) 1.09 L (1.32-3.57) K/mm3 Lake # (Auto) 1.24 H (0.30-0.82) K/mm3 Eos # (Auto) 0.01 L (0.04-0.54) K/mm3 Baso # (Auto) 0.01 (0.01-0.08) K/mm3 Manual Slide Review Abnormal smear D-Dimer, Quantitative 0.26 (0.19-0.50) mg/L Sodium 138 (136-145) mEq/L Potassium 3.8 (3.5-5.1) mEq/L Chloride 106 (98-107) mEq/L Carbon Dioxide 24 (21-32) mEq/L Anion Gap 11.8 (5-15) BUN 22 H (7-18) mg/dL Creatinine 0.9 (0.7-1.3) mg/dL Est Cr Clr Drug Dosing 120.02 mL/min Estimated GFR (MDRD) > 60 (>60) mL/min BUN/Creatinine Ratio 24.4 H (14-18) Glucose 131 H (70-99) mg/dL POC Glucose (70-99) mg/dL Calcium 8.1 L (8.5-10.1) mg/dL Phosphorus 4.2 (2.6-4.7) mg/dL Magnesium 2.0 (1.8-2.4) mg/dL Total Bilirubin 0.6 (0.2-1.0) mg/dL AST 53 H (15-37) U/L ALT 111 H (16-63) U/L Alkaline Phosphatase 41 L (46-116) U/L C-Reactive Protein 1.3 H* (<1.0) mg/dL Total Protein 6.0 L (6.4-8.2) g/dl Albumin 2.4 L (3.4-5.0) g/dl Globulin 3.6 gm/dL Albumin/Globulin Ratio 0.7 L (1-2) Ur Random Creatinine (30.0-125.0) mg/dL Ur Random Microalbumin (1.3-20.0) mg/L Microalb/Creat Ratio 03/25/21 03/25/21 Range/Units 06:36 10:57 WBC (4.23-9.07) K/mm3 RBC (4.63-6.08) M/mm3 Hgb (13.7-17.5) gm/dl Hct (40.1-51.0) % MCV (79.0-92.2) fl MCH (25.7-32.2) pg MCHC (32.2-35.5) g/dl RDW Std Deviation (35.1-43.9) fL Plt Count (163-337) K/mm3 MPV (9.4-12.3) fl Neut % (Auto) (34.0-67.9) % Lymph % (Auto) (21.8-53.1) % Lake % (Auto) (5.3-12.2) % Eos % (Auto) (0.8-7.0) Baso % (Auto) (0.1-1.2) % Neut # (Auto) (1.78-5.38) K/mm3 Lymph # (Auto) (1.32-3.57) K/mm3 Lake # (Auto) (0.30-0.82) K/mm3 Eos # (Auto) (0.04-0.54) K/mm3 Baso # (Auto) (0.01-0.08) K/mm3 Manual Slide Review D-Dimer, Quantitative (0.19-0.50) mg/L Sodium (136-145) mEq/L Potassium (3.5-5.1) mEq/L Chloride (98-107) mEq/L Carbon Dioxide (21-32) mEq/L Anion Gap (5-15) BUN (7-18) mg/dL Creatinine (0.7-1.3) mg/dL Est Cr Clr Drug Dosing mL/min Estimated GFR (MDRD) (>60) mL/min BUN/Creatinine Ratio (14-18) Glucose (70-99) mg/dL POC Glucose 122 H 181 H (70-99) mg/dL Calcium (8.5-10.1) mg/dL Phosphorus (2.6-4.7) mg/dL Magnesium (1.8-2.4) mg/dL Total Bilirubin (0.2-1.0) mg/dL AST (15-37) U/L ALT (16-63) U/L Alkaline Phosphatase (46-116) U/L C-Reactive Protein (<1.0) mg/dL Total Protein (6.4-8.2) g/dl Albumin (3.4-5.0) g/dl Globulin gm/dL Albumin/Globulin Ratio (1-2) Ur Random Creatinine (30.0-125.0) mg/dL Ur Random Microalbumin (1.3-20.0) mg/L Microalb/Creat Ratio Result Diagrams: 03/25/21 05:33 03/25/21 05:33 Sepsis Event Note - Focused Exam Vital Signs: Vital Signs Temp Pulse Resp BP Pulse Ox Pulse Ox Pulse Ox 03/25/21 14:03 97.5 F 78 16 113/47 L 94 L 03/25/21 13:35 90 20 143/60 H 93 L 03/25/21 13:11 92 L 03/25/21 10:27 92 L 03/25/21 10:02 135/59 L 03/25/21 08:00 97.9 F 72 18 143/98 H 95 03/25/21 05:38 91 L 03/25/21 05:00 95 03/25/21 03:10 97.7 F 75 24 H 126/93 H 94 L - Plan Plan:: Patient appears to be improving steadily. Playing games and listening to his phone. Agree with assessment and plan. No changes to medications at this time. 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 abdominal: Soft nontender nondistended Respiratory: Left crackles bilateral lower lobes that clear with cough, otherwise clear to auscultation bilaterally shallow CVS: Regular rate rhythm S1-S2
[2021-03-25] MEDS: Insulin Lispro 100 UNIT/ML 10 ML Vial SUBCUT SCH ×4 (07:45→22:17)
[2021-03-25] MEDS: Enoxaparin 40 MG/0.4 ML Syringe SUBCUT SCH ×2 (08:56→20:20)
[2021-03-25] MEDS: Dexamethasone 4 MG/ML SDV IVPUSH SCH (08:57)
[2021-03-25] MEDS: Sodium Chloride 0.65% Nasal Spray 45 ML Bottle NAS PRN ×3 (09:06→13:30)
[2021-03-25] MEDS: Albuterol 6.7 GM Inhaler INH PRN (10:27)
[2021-03-25] MEDS: REMDESIVIR 100 MG in Sodium Chloride 0.9% 100 ML IV SCH (20:19)
[2021-03-26] MEDS: guaiFENesin 100 MG/5 ML Soln 10 ML UD Cup PO SCH ×3 (01:30→09:33)
[2021-03-26] MEDS: Insulin Glarg,Human.Rec.Analog 100 Unit/ML SUBCUT SCH (06:29)
[2021-03-26] MEDS: Insulin Lispro 100 UNIT/ML 10 ML Vial SUBCUT SCH ×2 (06:51→11:16)
--- NOTE | 2021-03-26 09:31 | PCM.DCSUM1 ---
<Mahendra Layton - Last Filed: 03/26/21 11:48> Discharge Summary - Hospital Course HPI Initial Comments: 31-year-old unvaccinated for Covid obese male presents to the emergency department with symptoms of cough, shortness of breath, fatigue, body aches, and chills for the last week. Symptoms started on March 15 and he was diagnosed with Covid on the . Apparently he had an ear infection and complained of left ear pain at that time. He did get antibiotics that he has been taking but he does not remember the name nor did he bring them with him. He came to the emergency department today because he could not do anything for himself and was extremely fatigued. In the emergency department his O2 sats were 85% on room air. He was placed on 2 L and oxygen saturations increased to the mid 90s. He was given his first dose of remdesivir and dexamethasone. He has no medical history. Initial blood pressure was elevated 161/86. He also complained of some diarrhea since developing Covid. Diagnosis: Stroke: No - Discharge Data Discharge Date: 03/26/21 (Admit date: 03/21/2021) Discharge Disposition: Home, Self-Care 01 Condition: Good - Referral to Home Health Primary Care Physician: Manny Britt MD - Discharge Diagnosis/Problem(s) (1) New onset type 2 diabetes mellitus SNOMED Code(s): 95925409 ICD Code: E11.9 - TYPE 2 DIABETES MELLITUS WITHOUT COMPLICATIONS Status: Acute Priority: High Current Visit: Yes (2) COVID-19 SNOMED Code(s): 060068173 ICD Code: U07.1 - COVID-19 Status: Acute Priority: High Current Visit: Yes (3) Elevated BP without diagnosis of hypertension SNOMED Code(s): 324590537 ICD Code: R03.0 - ELEVATED BLOOD-PRESSURE READING, W/O DIAGNOSIS OF HTN Status: Resolved Current Visit: Yes (4) Hypoxia SNOMED Code(s): 123932332 ICD Code: R09.02 - HYPOXEMIA Status: Resolved Priority: High Current Visit: Yes (5) Obesity SNOMED Code(s): 327410993, 528731589 ICD Code: E66.9 - OBESITY, UNSPECIFIED Status: Chronic Priority: Medium Current Visit: Yes Qualifiers: Obesity type: unspecified obesity type Obesity classification: adult class 2 (BMI 35 - 39.9) Serious obesity comorbidity presence: with serious comorbidity Body mass index: BMI 38.0-38.9 Qualified Code(s): E66.01 - Morbid (severe) obesity due to excess calories; Z68.38 - Body mass index [BMI] 38.0-38.9, adult (6) Pneumonia due to COVID-19 virus SNOMED Code(s): 412260944999861659 ICD Code: U07.1 - COVID-19; J12.82 - PNEUMONIA DUE TO CORONAVIRUS DISEASE 2018 Status: Acute Priority: High Current Visit: Yes (7) Transaminitis SNOMED Code(s): 135627898, 042148688 ICD Code: R74.01 - ELEVATION OF LEVELS OF LIVER TRANSAMINASE LEVELS Status: Resolved Priority: Medium Current Visit: Yes - Patient Summary/Data Consults: Consultations 03/23/21 13:03 Consult to Wastewater Analyst Lab Analyst [CONS] Routine 03/23/21 13:04 Consult to Diabetic Nurse Specialist [CONS] Routine Labs Pending at D/C: None Recommended Follow-up Testing/Procedures: Follow-up with primary care provider within 7 to 10 days of discharge, sooner if needed. * Recommend repeat CBC, CMP, and magnesium in follow-up. Consider repeat chest x-ray. * Patient noted to be diabetic with an A1c of 7.2 and elevated sugars while here. * Unfortunately patient refusing all types of p.o. meds and it is not felt he requires insulin yet. * Patient did see certified adaptive physical educator and dietitian. We did discuss lifestyle changes. * Please follow-up with patient regarding this. * Patient did complete isolation/quarantine requirements while here. * Discharged on as needed albuterol inhaler and twice daily guaifenesin. Hospital Course: This is a 31-year-old male who presented to our ED on 03/21/2021 after being sent from the clinic due to low saturations. At that time saturations were noted to be in the 80s and he was placed on 2 L. He was diagnosed with Covid on March 16. He has no past medical history but is noted to be obese with a BMI of 38.1. At his worst patient was noted to have an O2 requirement of 3 L. He was able to be weaned off of oxygen prior to discharge. Patient was noted to have rather significantly elevated blood glucose readings. A1c was obtained and was 7.2. Lactic acid was noted to be 2.1 and this did trend downward with treatment. 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 He was therefore refusing any type of pill for treatment while here. Dexamethasone was given IV. He did see our dietitian and certified adaptive physical educator. UA was negative for protein. Creatinine was 91.2 and random microalbumin was less than 1.3. He was utilizing his incentive spirometer and Acapella. His D-dimer was within normal limits at discharge. Unfortunately our discharge plan was quite limited due to patient's refusal for pills. He would likely benefit from Metformin however he again refuses this. Plan was to discharge him on p.o. dexamethasone as well but he refused this. Discussed discharge plan with Dr. Doty, attending hospitalist. We'll therefore discharge the patient on an as needed albuterol inhaler and guaifenesin liquid. We will discontinue patient's steroid and not start any diabetic medications. We did discuss lifestyle changes with the patient, as did our certified adaptive physical educator and dietitian. Patient did complete his isolation/quarantine while here and this will be discontinued at discharge. Recommend follow-up with primary care provider within 7 to 10 days of discharge, or sooner if needed. Patient instructed to continue to utilize his incentive spirometer and Acapella. He was instructed to continue to prone whenever able. Recommend repeat CBC, CMP, and magnesium in follow-up. Recommend continued monitoring of patient's blood sugars. As patient will not be receiving any insulin or other diabetic medications at discharge we will not discharge with a glucometer. He was instructed to contact his primary care provider return the emergency room should symptoms return or worsen. Discharged home today. - Patient Instructions Diet: Diabetic Diet Activity: As Tolerated Driving: Do Not Drive (until feeling better ) Showering/Bathing: May Shower Notify Provider of: Fever, Increased Pain, Nausea and/or Vomiting Other/Special Instructions: Follow-up with primary care provider within 7 to 10 days of discharge, sooner if needed. As we discussed you would likely benefit from a oral medication called Metformin, which is given twice a day in pill form. You indicated that you will not take pills. Because of this will not prescribe you anything for your diabetes. Work on lifestyle changeseating better, exercising, etc. 12 control your diabetes as we discussed. You are prescribed an albuterol inhaler. Take 2 puffs every 2 hours as needed for shortness of breath and wheezing. You were prescribed a liquid medicine to help with congestion. Take this as prescribed. Continue to utilize your incentive spirometer (clear/blue device you inhale through) and Acapella (green tube you blow through) for 1 to 2 weeks or until symptoms resolve. You completed isolation/quarantine while here and will not be required to do this on discharge. You may receive a call from a medical case manager from the [facility]. Follow their directions. Continue to prone (lay on your belly) whenever possible. Stay active but take it easy. If you start to feel tired or short of breath take a break. Should symptoms return or worsen contact primary care provider or return to the emergency room. - Discharge Plan *PRESCRIPTION DRUG MONITORING PROGRAM REVIEWED*: No *COPY OF PRESCRIPTION DRUG MONITORING REPORT IN PATIENT RODGER: No Prescriptions/Med Rec: Albuterol [Proventil HFA] 2 puff INH Q2H PRN #1 inhaler PRN Reason: Shortness Of Breath guaiFENesin [Robitussin] 200 mg PO BID #10 cup Home Medications: Home Meds Albuterol [Proventil HFA] 2 puff INH Q2H PRN #1 inhaler 03/26/21 [Rx] guaiFENesin [Robitussin] 200 mg PO BID #10 cup 03/26/21 [Rx] Oxygen Therapy Mode: Room Air Patient Handouts: COVID-19, Electronic Cigarette Information, Living With Diabetes, 10 Things You Can Do to Manage Your COVID-19 Symptoms at Home - CDC (01/03/2021), Diabetes Mellitus Action Plan, Preventing Diabetes Mellitus Complications, Blood Glucose Monitoring, Adult, Diabetes Mellitus and Exercise, Diabetes Mellitus and Nutrition, Adult Referrals: Manny Britt MD [Primary Care Provider] - 04/02/21 11:30 am (Please check-in by 11:15am.) - Discharge Summary/Plan Comment DC Time >30 min.: Yes Total # of Minutes for Discharge Time: 45 - General Info Date of Service: 03/26/21 Admission Dx/Problem (Free Text: Admission Diagnosis/Problem Admission Diagnosis/Problem Hypoxia Functional Status: Reports: Pain Controlled, Tolerating Diet, Ambulating, Urinating, Incentive Spirometry, Other (Acapella ). Denies: New Symptoms - Review of Systems General: Reports: No Symptoms. Denies: Fever, Weakness, Fatigue, Malaise, Chills HEENT: Reports: No Symptoms. Denies: Headaches, Sore Throat Pulmonary: Reports: Cough (improving ), Sputum. Denies: Shortness of Breath Cardiovascular: Reports: Dyspnea on Exertion. Denies: Chest Pain, Palpitations, Edema Gastrointestinal: Reports: No Symptoms. Denies: Abdominal Pain, Constipation, Diarrhea, Nausea, Vomiting Genitourinary: Reports: No Symptoms. Denies: Pain Musculoskeletal: Reports: No Symptoms Skin: Reports: No Symptoms. Denies: Cyanosis Neurological: Reports: No Symptoms. Denies: Confusion, Dizziness, Headache, Num bness, Paresthesia, Pre-Existing Deficit, Seizure, Syncope, Tingling, Tremors, Trouble Speaking, Difficulty Walking, Weakness, Change in Speech, Gait Disturbance Psychiatric: Reports: No Symptoms - Patient Data Vitals - Most Recent: Last Vital Signs Temp 97.9 F 03/26/21 08:34 Pulse 77 03/26/21 08:34 Resp 20 03/26/21 08:34 BP 120/62 03/26/21 08:34 Pulse Ox 90 L 03/26/21 08:34 Weight - Most Recent: 258 lb I&O - Last 24 hours: Intake & Output 03/25/21 03/26/21 03/26/21 22:59 06:59 14:59 Intake Total 2360 800 Output Total 880 200 Balance 1480 600 Lab Results - Last 24 hrs: Laboratory Results - last 24 hr 03/25/21 03/25/21 03/25/21 Range/Units 10:57 16:37 21:28 WBC (4.23-9.07) K/mm3 RBC (4.63-6.08) M/mm3 Hgb (13.7-17.5) gm/dl Hct (40.1-51.0) % MCV (79.0-92.2) fl MCH (25.7-32.2) pg MCHC (32.2-35.5) g/dl RDW Std Deviation (35.1-43.9) fL Plt Count (163-337) K/mm3 MPV (9.4-12.3) fl Neut % (Auto) (34.0-67.9) % Lymph % (Auto) (21.8-53.1) % [place] % (Auto) (5.3-12.2) % Eos % (Auto) (0.8-7.0) Baso % (Auto) (0.1-1.2) % Neut # (Auto) (1.78-5.38) K/mm3 Lymph # (Auto) (1.32-3.57) K/mm3 [place] # (Auto) (0.30-0.82) K/mm3 Eos # (Auto) (0.04-0.54) K/mm3 Baso # (Auto) (0.01-0.08) K/mm3 Manual Slide Review Sodium (136-145) mEq/L Potassium (3.5-5.1) mEq/L Chloride (98-107) mEq/L Carbon Dioxide (21-32) mEq/L Anion Gap (5-15) BUN (7-18) mg/dL Creatinine (0.7-1.3) mg/dL Est Cr Clr Drug Dosing mL/min Estimated GFR (MDRD) (>60) mL/min BUN/Creatinine Ratio (14-18) Glucose (70-99) mg/dL POC Glucose 181 H 242 H 191 H (70-99) mg/dL Calcium (8.5-10.1) mg/dL Total Bilirubin (0.2-1.0) mg/dL AST (15-37) U/L ALT (16-63) U/L Alkaline Phosphatase (46-116) U/L C-Reactive Protein (<1.0) mg/dL Total Protein (6.4-8.2) g/dl Albumin (3.4-5.0) g/dl Globulin gm/dL Albumin/Globulin Ratio (1-2) 03/26/21 03/26/21 Range/Units 04:34 04:34 WBC 8.70 (4.23-9.07) K/mm3 RBC 5.17 (4.63-6.08) M/mm3 Hgb 14.9 (13.7-17.5) gm/dl Hct 45.5 (40.1-51.0) % MCV 88.0 (79.0-92.2) fl MCH 28.8 (25.7-32.2) pg MCHC 32.7 (32.2-35.5) g/dl RDW Std Deviation 40.1 (35.1-43.9) fL Plt Count 290 (163-337) K/mm3 MPV 11.4 (9.4-12.3) fl Neut % (Auto) 64.4 (34.0-67.9) % Lymph % (Auto) 16.6 L (21.8-53.1) % [place] % (Auto) 14.7 H (5.3-12.2) % Eos % (Auto) 0.2 L (0.8-7.0) Baso % (Auto) 0.2 (0.1-1.2) % Neut # (Auto) 5.60 H (1.78-5.38) K/mm3 Lymph # (Auto) 1.44 (1.32-3.57) K/mm3 [place] # (Auto) 1.28 H (0.30-0.82) K/mm3 Eos # (Auto) 0.02 L (0.04-0.54) K/mm3 Baso # (Auto) 0.02 (0.01-0.08) K/mm3 Manual Slide Review Normal smear Sodium 139 (136-145) mEq/L Potassium 3.6 (3.5-5.1) mEq/L Chloride 106 (98-107) mEq/L Carbon Dioxide 24 (21-32) mEq/L Anion Gap 12.6 (5-15) BUN 20 H (7-18) mg/dL Creatinine 0.9 (0.7-1.3) mg/dL Est Cr Clr Drug Dosing 120.02 mL/min Estimated GFR (MDRD) > 60 (>60) mL/min BUN/Creatinine Ratio 22.2 H (14-18) Glucose 96 (70-99) mg/dL POC Glucose (70-99) mg/dL Calcium 8.1 L (8.5-10.1) mg/dL Total Bilirubin 0.5 (0.2-1.0) mg/dL AST 36 (15-37) U/L ALT 110 H (16-63) U/L Alkaline Phosphatase 42 L (46-116) U/L C-Reactive Protein 1.2 H* (<1.0) mg/dL Total Protein 6.1 L (6.4-8.2) g/dl Albumin 2.5 L (3.4-5.0) g/dl Globulin 3.6 gm/dL Albumin/Globulin Ratio 0.7 L (1-2) Med Orders - Current: Current Medications Acetaminophen (Acetaminophen 325 Mg/10.15 Ml Ml) 650 mg PO Q4H PRN PRN Reason: Pain (mild 1-3) or fever > 101 Albuterol (Albuterol 6.7 Gm Inhaler) 0 gm INH Q4H PRN PRN Reason: Shortness of Breath Last Admin: 03/25/21 10:27 Dose: 2 puff Documented by: Albuterol/Ipratropium (Albuterol/Ipratropium 3.0-0.5 Mg/3 Ml Neb Soln) 3 ml NEB Q4H PRN PRN Reason: Shortness Of Breath/wheezing Last Admin: 03/22/21 20:56 Dose: 3 ml Documented by: Dexamethasone (Dexamethasone 4 Mg/Ml Sdv) 6 mg IVPUSH DAILY [facility] Stop: 03/30/21 09:01 Last Admin: 03/25/21 08:57 Dose: 6 mg Documented by: Enoxaparin Sodium (Enoxaparin 40 Mg/0.4 Ml Syringe) 40 mg SUBCUT BID [facility] Last Admin: 03/25/21 20:20 Dose: 40 mg Documented by: Guaifenesin (Guaifenesin 100 Mg/5 Ml Soln 10 Ml Ud Cup) 200 mg PO Q4H [facility] Last Admin: 03/26/21 06:30 Dose: 200 mg Documented by: Ibuprofen (Ibuprofen Susp 100 Mg/5 Ml 5 Ml Ud Cup) 600 mg PO Q6H PRN PRN Reason: Pain (moderate 4-6) Insulin Glargine (Insulin Glarg,Human.Rec.Analog 100 Unit/Ml) 10 unit SUBCUT BIDAC [facility] Last Admin: 03/26/21 06:29 Dose: 10 units Documented by: Insulin Human Lispro (Insulin Lispro 100 Unit/Ml 10 Ml Vial) 0 unit SUBCUT QIDACANDBED [facility]; Protocol Last Admin: 03/26/21 06:51 Dose: Not Given Documented by: Ondansetron HCl (Ondansetron 4 Mg/2 Ml Sdv) 4 mg IV Q6H PRN PRN Reason: Nausea/Vomiting Sodium Chloride (Sodium Chloride 0.9% 10 Ml Syringe) 10 ml FLUSH ASDIRECTED PRN PRN Reason: Keep Vein Open Sodium Chloride (Sodium Chloride 0.65% Nasal [place] 45 Ml Bottle) 0 ml SONY Q2H PRN PRN Reason: Nasal Dryness Last Admin: 03/25/21 13:30 Dose: 1 spray Documented by: Discontinued Medications Acetaminophen (Acetaminophen 325 Mg Tab) 650 mg PO Q4H PRN PRN Reason: Pain (Mild 1-3)/fever Acetaminophen (Acetaminophen 325 Mg Tab) 650 mg PO Q4H PRN PRN Reason: Fever Greater Than 101 Acetaminophen (Acetaminophen 325 Mg/10.15 Ml Ml) 650 mg PO Q4H PRN PRN Reason: Fever Dexamethasone (Dexamethasone 10 Mg/Ml Sdv) 6 mg IVPUSH ONETIME ONE Stop: 03/21/21 16:44 Last Admin: 03/21/21 18:08 Dose: 6 mg Documented by: Dexamethasone (Dexamethasone 4 Mg Tab) 6 mg PO DAILY [facility] Stop: 03/31/21 09:01 Guaifenesin (Guaifenesin 600 Mg Tab.Er) 600 mg PO BID [facility] Last Admin: 03/24/21 13:42 Dose: Not Given Documented by: Remdesivir 200 mg/ Sodium (Chloride) 250 mls @ 250 mls/hr IV ONETIME ONE Stop: 03/21/21 16:44 Last Admin: 03/21/21 18:08 Dose: 250 mls/hr Documented by: Remdesivir 100 mg/ Sodium (Chloride) 100 mls @ 100 mls/hr IV Q24H [facility] Stop: 03/25/21 20:59 Last Admin: 03/25/21 20:19 Dose: 100 mls/hr Documented by: Ibuprofen (Ibuprofen 600 Mg Tab) 600 mg PO Q6H PRN PRN Reason: Pain (moderate 4-6) Temazepam (Temazepam 7.5 Mg Cap) 7.5 mg PO BEDTIME PRN PRN Reason: Sleep - Exam Quality Assessment: Reports: DVT Prophylaxis. Denies: Supplemental Oxygen, Urine Catheter General: Reports: Alert, Oriented, Cooperative, No Acute Distress HEENT: Reports: Pupils Equal, Pupils Reactive, Mucous Membr. Moist/[place]: Reports: Supple, Trachea Midline Lungs: Reports: Normal Respiratory Effort, Decreased Breath Sounds, Crackles. Denies: Rhonchi, Wheezing Cardiovascular: Reports: Regular Rate, Regular Rhythm GI/Abdominal Exam: Normal Bowel Sounds, Soft, Non-Tender, No Distention (Male) Exam: Deferred Rectal (Males) Exam: Deferred Back Exam: Reports: Normal Inspection, Full Range of Motion Extremities: Normal Inspection, Normal Range of Motion, Non-Tender, No Pedal Edema, Normal Capillary Refill Skin: Reports: Warm, Dry, Intact Neurological: Reports: No New Focal Deficit Psy/Mental Status: Reports: Alert, Normal Affect, Normal Mood <DotyKristine - Last Filed: 03/26/21 12:11> Discharge Summary - Hospital Course HPI Initial Comments: She was seen and examined, agree with assessment and plan. Agree with discharge today. Will follow up with primary care physician. - Referral to Home Health Primary Care Physician: Manny Britt MD - Patient Summary/Data Consults: Consultations 03/23/21 13:03 Consult to Wastewater Analyst Lab Analyst [CONS] Routine 03/23/21 13:04 Consult to Diabetic Nurse Specialist [CONS] Routine - Patient Data Vitals - Most Recent: Last Vital Signs Temp 97.5 F 03/26/21 09:45 Pulse 100 03/26/21 09:45 Resp 18 03/26/21 09:45 BP 111/76 03/26/21 09:45 Pulse Ox 94 L 03/26/21 09:45 I&O - Last 24 hours: Intake & Output 03/25/21 03/26/21 03/26/21 22:59 06:59 14:59 Intake Total 2360 800 320 Output Total 880 200 Balance 1480 600 320 Lab Results - Last 24 hrs: Laboratory Results - last 24 hr 03/25/21 03/25/21 03/26/21 Range/Units 16:37 21:28 04:34 WBC 8.70 (4.23-9.07) K/mm3 RBC 5.17 (4.63-6.08) M/mm3 Hgb 14.9 (13.7-17.5) gm/dl Hct 45.5 (40.1-51.0) % MCV 88.0 (79.0-92.2) fl MCH 28.8 (25.7-32.2) pg MCHC 32.7 (32.2-35.5) g/dl RDW Std Deviation 40.1 (35.1-43.9) fL Plt Count 290 (163-337) K/mm3 MPV 11.4 (9.4-12.3) fl Neut % (Auto) 64.4 (34.0-67.9) % Lymph % (Auto) 16.6 L (21.8-53.1) % [place] % (Auto) 14.7 H (5.3-12.2) % Eos % (Auto) 0.2 L (0.8-7.0) Baso % (Auto) 0.2 (0.1-1.2) % Neut # (Auto) 5.60 H (1.78-5.38) K/mm3 Lymph # (Auto) 1.44 (1.32-3.57) K/mm3 [place] # (Auto) 1.28 H (0.30-0.82) K/mm3 Eos # (Auto) 0.02 L (0.04-0.54) K/mm3 Baso # (Auto) 0.02 (0.01-0.08) K/mm3 Manual Slide Review Normal smear Sodium (136-145) mEq/L Potassium (3.5-5.1) mEq/L Chloride (98-107) mEq/L Carbon Dioxide (21-32) mEq/L Anion Gap (5-15) BUN (7-18) mg/dL Creatinine (0.7-1.3) mg/dL Est Cr Clr Drug Dosing mL/min Estimated GFR (MDRD) (>60) mL/min BUN/Creatinine Ratio (14-18) Glucose (70-99) mg/dL POC Glucose 242 H 191 H (70-99) mg/dL Calcium (8.5-10.1) mg/dL Total Bilirubin (0.2-1.0) mg/dL AST (15-37) U/L ALT (16-63) U/L Alkaline Phosphatase (46-116) U/L C-Reactive Protein (<1.0) mg/dL Total Protein (6.4-8.2) g/dl Albumin (3.4-5.0) g/dl Globulin gm/dL Albumin/Globulin Ratio (1-2) 03/26/21 03/26/21 Range/Units 04:34 06:29 WBC (4.23-9.07) K/mm3 RBC (4.63-6.08) M/mm3 Hgb (13.7-17.5) gm/dl Hct (40.1-51.0) % MCV (79.0-92.2) fl MCH (25.7-32.2) pg MCHC (32.2-35.5) g/dl RDW Std Deviation (35.1-43.9) fL Plt Count (163-337) K/mm3 MPV (9.4-12.3) fl Neut % (Auto) (34.0-67.9) % Lymph % (Auto) (21.8-53.1) % [place] % (Auto) (5.3-12.2) % Eos % (Auto) (0.8-7.0) Baso % (Auto) (0.1-1.2) % Neut # (Auto) (1.78-5.38) K/mm3 Lymph # (Auto) (1.32-3.57) K/mm3 [place] # (Auto) (0.30-0.82) K/mm3 Eos # (Auto) (0.04-0.54) K/mm3 Baso # (Auto) (0.01-0.08) K/mm3 Manual Slide Review Sodium 139 (136-145) mEq/L Potassium 3.6 (3.5-5.1) mEq/L Chloride 106 (98-107) mEq/L Carbon Dioxide 24 (21-32) mEq/L Anion Gap 12.6 (5-15) BUN 20 H (7-18) mg/dL Creatinine 0.9 (0.7-1.3) mg/dL Est Cr Clr Drug Dosing 120.02 mL/min Estimated GFR (MDRD) > 60 (>60) mL/min BUN/Creatinine Ratio 22.2 H (14-18) Glucose 96 (70-99) mg/dL POC Glucose 87 (70-99) mg/dL Calcium 8.1 L (8.5-10.1) mg/dL Total Bilirubin 0.5 (0.2-1.0) mg/dL AST 36 (15-37) U/L ALT 110 H (16-63) U/L Alkaline Phosphatase 42 L (46-116) U/L C-Reactive Protein 1.2 H* (<1.0) mg/dL Total Protein 6.1 L (6.4-8.2) g/dl Albumin 2.5 L (3.4-5.0) g/dl Globulin 3.6 gm/dL Albumin/Globulin Ratio 0.7 L (1-2) Med Orders - Current: Current Medications Acetaminophen (Acetaminophen 325 Mg/10.15 Ml Ml) 650 mg PO Q4H PRN PRN Reason: Pain (mild 1-3) or fever > 101 Albuterol (Albuterol 6.7 Gm Inhaler) 0 gm INH Q4H PRN PRN Reason: Shortness of Breath Last Admin: 03/25/21 10:27 Dose: 2 puff Documented by: Albuterol/Ipratropium (Albuterol/Ipratropium 3.0-0.5 Mg/3 Ml Neb Soln) 3 ml NEB Q4H PRN PRN Reason: Shortness Of Breath/wheezing Last Admin: 03/22/21 20:56 Dose: 3 ml Documented by: Dexamethasone (Dexamethasone 4 Mg/Ml Sdv) 6 mg IVPUSH DAILY [facility] Stop: 03/30/21 09:01 Last Admin: 03/26/21 09:34 Dose: 6 mg Documented by: Enoxaparin Sodium (Enoxaparin 40 Mg/0.4 Ml Syringe) 40 mg SUBCUT BID [facility] Last Admin: 03/26/21 09:33 Dose: 40 mg Documented by: Guaifenesin (Guaifenesin 100 Mg/5 Ml Soln 10 Ml Ud Cup) 200 mg PO Q4H [facility] Last Admin: 03/26/21 09:33 Dose: 200 mg Documented by: Ibuprofen (Ibuprofen Susp 100 Mg/5 Ml 5 Ml Ud Cup) 600 mg PO Q6H PRN PRN Reason: Pain (moderate 4-6) Insulin Glargine (Insulin Glarg,Human.Rec.Analog 100 Unit/Ml) 10 unit SUBCUT BIDAC [facility] Last Admin: 03/26/21 06:29 Dose: 10 units Documented by: Insulin Human Lispro (Insulin Lispro 100 Unit/Ml 10 Ml Vial) 0 unit SUBCUT QIDACANDBED [facility]; Protocol Last Admin: 03/26/21 11:16 Dose: Not Given Documented by: Ondansetron HCl (Ondansetron 4 Mg/2 Ml Sdv) 4 mg IV Q6H PRN PRN Reason: Nausea/Vomiting Sodium Chloride (Sodium Chloride 0.9% 10 Ml Syringe) 10 ml FLUSH ASDIRECTED PRN PRN Reason: Keep Vein Open Sodium Chloride (Sodium Chloride 0.65% Nasal [place] 45 Ml Bottle) 0 ml SONY Q2H PRN PRN Reason: Nasal Dryness Last Admin: 03/25/21 13:30 Dose: 1 spray Documented by: Discontinued Medications Acetaminophen (Acetaminophen 325 Mg Tab) 650 mg PO Q4H PRN PRN Reason: Pain (Mild 1-3)/fever Acetaminophen (Acetaminophen 325 Mg Tab) 650 mg PO Q4H PRN PRN Reason: Fever Greater Than 101 Acetaminophen (Acetaminophen 325 Mg/10.15 Ml Ml) 650 mg PO Q4H PRN PRN Reason: Fever Dexamethasone (Dexamethasone 10 Mg/Ml Sdv) 6 mg IVPUSH ONETIME ONE Stop: 03/21/21 16:44 Last Admin: 03/21/21 18:08 Dose: 6 mg Documented by: Dexamethasone (Dexamethasone 4 Mg Tab) 6 mg PO DAILY [facility] Stop: 03/31/21 09:01 Guaifenesin (Guaifenesin 600 Mg Tab.Er) 600 mg PO BID [facility] Last Admin: 03/24/21 13:42 Dose: Not Given Documented by: Remdesivir 200 mg/ Sodium (Chloride) 250 mls @ 250 mls/hr IV ONETIME ONE Stop: 03/21/21 16:44 Last Admin: 03/21/21 18:08 Dose: 250 mls/hr Documented by: Remdesivir 100 mg/ Sodium (Chloride) 100 mls @ 100 mls/hr IV Q24H [facility] Stop: 03/25/21 20:59 Last Admin: 03/25/21 20:19 Dose: 100 mls/hr Documented by: Ibuprofen (Ibuprofen 600 Mg Tab) 600 mg PO Q6H PRN PRN Reason: Pain (moderate 4-6) Temazepam (Temazepam 7.5 Mg Cap) 7.5 mg PO BEDTIME PRN PRN Reason: Sleep
[2021-03-26] MEDS: Enoxaparin 40 MG/0.4 ML Syringe SUBCUT SCH (09:33)
[2021-03-26] MEDS: Dexamethasone 4 MG/ML SDV IVPUSH SCH (09:34)
== END 2021-03-26 10:24 | disposition home or self-care (01) | DRG 177 ==
LOC: JD.ED 15:18 → JD.MS 17:57
PROVIDERS: ADMIT Family Medicine; ATTEND Family Medicine
PROC: XW033E5 Introduction of Remdesivir Anti-infective into Peripheral Vein, Percutaneous Approach, New Technology Group 5 (ICD-10-PCS; principal; 2021-03-21)
PROC: 3E0333Z Introduction of Anti-inflammatory into Peripheral Vein, Percutaneous Approach (ICD-10-PCS; 2021-03-21)
PROC: 3E0DX3Z Introduction of Anti-inflammatory into Mouth and Pharynx, External Approach (ICD-10-PCS; 2021-03-22)
DX: U07.1 COVID-19 (principal); J12.82 Pneumonia due to coronavirus disease 2019; R74.01 Elevation of levels of liver transaminase levels; E66.01 Morbid (severe) obesity due to excess calories; F98.8 Other specified behavioral and emotional disorders with onset usually occurring in childhood and adolescence; F17.200 Nicotine dependence, unspecified, uncomplicated; E11.65 Type 2 diabetes mellitus with hyperglycemia; R03.0 Elevated blood-pressure reading, without diagnosis of hypertension; Z68.38 Body mass index [BMI] 38.0-38.9, adult; Z88.0 Allergy status to penicillin
CPT/HCPCS: 36415; 71045; 71045-26; 80053; 81003; 82043; 82947; 83036; 83605; 83735; 84100; 85025; 85379; 86140; 94640; 94667; 94668; 94762; 96374; 99285; 99285-25; A9270-GY; J1100; J1650; J1815-GY; J7050; J7620-GY